=== PATIENT | male | born 1940 | race Caucasian/White ===

== ENCOUNTER → 2024-04-02 12:44 | Outpatient (REF) | payer OTHER, SELFPAY | LOC: RCS 12:44 | PROVIDERS: ATTENDING PHYSICIAN Internal Medicine Cardiovascular Disease; FAMILY PHYSICIAN Physician Assistant; REFERRING PHYSICIAN Internal Medicine Cardiovascular Disease | DX: I50.32 Chronic diastolic (congestive) heart failure (principal) | CPT/HCPCS: 93306 ==

== ENCOUNTER 2024-10-14 01:09 | Inpatient (IN) | payer OTHER, SELFPAY ==
[2024-10-13 19:29] VITALS: BMI 37.6
[2024-10-13 19:33] VITALS: BP 118/89
[2024-10-13 19:35] VITALS: BP 118/89
[2024-10-13 20:00] VITALS: BP 135/95
[2024-10-13 20:00] LABS: % Basophils 0.2 % (0-2); % Immature Granulocytes 0.2 % (0-0.5); % Lymphocytes 5.2 % (20.5-51.1); % Monocytes 10.6 % (1.7-9.3); % Neutrophils 81.8 % (42.2-75.2); Absolute Eosinophils 0.1 10^3/uL (0-0.7); Absolute Lymphocytes 0.2 10^3/uL (1.2-3.4); Absolute Monocytes 0.5 10^3/uL (0.1-0.6); Absolute Neutrophils 3.6 10^3/uL (1.4-6.5); Hematocrit 35.2 % (39.0-52.0); Hemoglobin 11.5 g/dL (13.0-18.0); Mean Corp Hgb Conc. 32.7 g/dL (33.0-37.0); Mean Corpuscular Hgb 33.1 pg (27.0-31.0); Mean Corpuscular Volume 101.4 fL (80.0-94.0); Mean Platelet Volume 11.4 fL (7.4-10.4); Nucleated Red Blood Cells % 0 % (-); Platelet Count 80 10^3/uL (130-400); Red Blood Cell Count 3.47 10^6/uL (4.70-6.10); Red Cell Dist. Width 13.1 % (11.5-14.5); White Blood Cell Count 4.4 10^3/uL (4.8-10.8)
[2024-10-13 20:05] LABS: ALT (SGPT) 42 U/L (0-50); AST (SGOT) 43 U/L (17-59); Albumin 4.5 g/dl (3.5-5.0); Alkaline Phosphatase 92 U/L (38-126); Blood Urea Nitrogen 25 mg/dl (9-20); Carbon Dioxide 34 mmol/L (22-30); Chloride 95 mmol/L (98-107); Estimated Creatinine Clearance 71 ml/min; Glucose 106 mg/dl (70-99); Potassium 4.6 mmol/L (3.5-5.1); Sodium 136 mmol/L (135-145); Total Bilirubin 1.6 mg/dl (0.2-1.3); Total Protein 7.4 g/dl (6.3-8.2); eGFR > 60.00
[2024-10-13 20:08] LABS: COVID-19 Antigen Negative (Negative)
--- NOTE | 2024-10-13 21:11 | ED.GENMED ---
History of Present Illness
<Ai Steel PA-C - Last Filed: 10/13/24 22:46>
General
Chief Complaint: Change in Mental Status
Source: patient, family and ambulance crew
Exam Limitations: clinical condition
Time Seen by Provider: 10/13/24 20:33
Nursing documentation reviewed up to this point in time: agreed with
History of Present Illness
History of Present Illness:
84-year-old male coming from home via EMS for change in mental status. Patient has history of A-fib on Eliquis, diastolic HF with preserved EF on lasix
cough today and increased confusion
whom i spoke with on the phone is primary hitorian
pt is usually very with it, plays bridge every day
he was doing some weird things while playing cards which tipped her off that he wasn't well
he coughed a lot
they gave him coricidin at 5 pm 1 pill but he couldn't get the other pill down
he seemed mroe SOB
tried calling PCP but then called 911 after he was coughing so much that he soiled himself rather than use the urinal like he usually does
here he is oriented but doesn't really have short term memory and doesn't remember being sick today or hwo he got here
he was hallucinating for the RN caring for him
he is full code per the
does not usually use o2
Past History
<Ai Steel PA-C - Last Filed: 10/13/24 22:46>
Past History
ED Past Medical History: Arrthythmia (Chronic A. 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
ED Past Surgical History: Appendectomy, Cardiac (ICD May 2019, A. fib ablation 2008. Cardiac catheterization March 2018) and Orthopedic (Left ankle fusion, lumbar spine fusions 2011, 2013)
Social History
Tobacco: Former smoker (Quit over 15 years ago)
Alcohol: Former
Drug: None
Personal:
Living: with family
Employment: Retired
Family History
Family History: Cancer (Father at 47, leukemia)
Review of Systems
<Ai Steel PA-C - Last Filed: 10/13/24 22:46>
Review of Systems
Allergies reviewed?: Yes
All Other Systems: Not applicable
Phy Exam
<Ai Steel PA-C - Last Filed: 10/13/24 22:46>
Physical Exam
Physical Exam:
GENERAL: Alert , tachypneic, confused
EYE: pupils equal and reactive
NECK: Supple
ENT: o/p clr, mildly dry
CARDIAC irregularly irregular, trace pitting edema
LUNGS: tachypneic, wheezing, diminished, Rhonchi R side
ABDOMEN: Soft, obese, without focal tenderness, no r/g, no cvat, normal bowel sounds
NEUROLOGICAL: Alert and oriented,x 2 ; short term memory poor, cn intact, no focal neuro deficits
SKIN: Warm and dry, skin intact.
MUSCULOSKELETAL: mild edema
PSYCH: Normal and appropriate interaction. confused
Course
<Ai Steel PA-C - Last Filed: 10/13/24 22:46>
Orders/Labs/Results
Orders:
Orders
10/13/24 19:37
Electrocardiogram (*1) Urgent
Reason for Study: Fatigue / Weakness
EKG- Treatment ONCE
10/13/24 19:43
COVID-19 Antigen Urgent
Source: Nasal Swab
Complete Blood Count/With Diff Urgent
Comprehensive Metabolic Panel Urgent
Influenza A+B Rapid Molecular Urgent
ADAMA Source: Nasal Swab
Specimen Description:
10/13/24 21:09
Ipratropium/Albuterol Sulfate [Duoneb] 3 ml INH R NOW ONE
10/13/24 21:10
Lactic Acid Urgent
NT-proBNP Urgent
Urinalysis Reflex To Culture Urgent
Date Specimen was Collected: 10/13/24
Time Specimen was Collected: 20:59
Urine Microscopic Reflex Cult Urgent
Urine Culture Urgent
ADAMA Source: U
Specimen Description:
Date Specimen was Collected: 10/13/24
Time Specimen was Collected: 20:59
CR Chest - 2 Views Urgent
Comment:
Reason For Exam: COPD, COUGH, HYPOXIC
10/13/24 21:13
Acetaminophen [Tylenol] 1,000 mg PO NOW STA
10/13/24 22:26
0.9% Sodium Chloride 500 ml [Nss] 500 ml IV BOLUS
10/13/24 22:35
Oseltamivir Phosphate [Tamiflu] 75 mg PO NOW STA
Abnormal Lab Results
10/13/24 10/13/24
19:43 21:10
WBC 4.4 L 10^3/uL
(4.8-10.8)
RBC 3.47 L 10^6/uL
(4.70-6.10)
Hgb 11.5 L g/dL
(13.0-18.0)
Hct 35.2 L %
(39.0-52.0)
MCV 101.4 H fL
(80.0-94.0)
MCH 33.1 H pg
(27.0-31.0)
MCHC 32.7 L g/dL
(33.0-37.0)
Plt Count 80 L 10^3/uL
(130-400)
MPV 11.4 H fL
(7.4-10.4)
Absolute Lymphs (auto) 0.2 L 10^3/uL
(1.2-3.4)
Neutrophils % 81.8 H %
(42.2-75.2)
Lymphocytes % 5.2 L %
(20.5-51.1)
Monocytes % 10.6 H %
(1.7-9.3)
Chloride 95 L mmol/L
(98-107)
Carbon Dioxide 34 H mmol/L
(22-30)
BUN 25 H mg/dl
(9-20)
Glucose 106 H mg/dl
(70-99)
Total Bilirubin 1.6 H mg/dl
(0.2-1.3)
Ur Occult Blood Reflex 2+ A
(Negative)
Leukocyte Esterase Rfl 3+ A
(Negative)
Urine RBC 3-6 A /HPF
(0-2)
Urine WBC (Reflex) 21-25 A /HPF
(0-5)
Urine Bacteria (Reflex) Few A
(Negative)
Urine Albumin (Reflex) 2+ A
(Neg - Trace)
10/13/24 19:43
10/13/24 19:43
Vital Signs
Initial and Last Documented VS:
Initial Vital Signs
BP
118/89
10/13/24 19:33
Last Documented Vital Signs
Temp Pulse Resp BP Pulse Ox
39.4 C H 117 25 131/60 94
10/13/24 20:59 10/13/24 22:45 10/13/24 22:45 10/13/24 22:27 10/13/24 22:45
<Joshua Bobo MD - Last Filed: 10/13/24 22:52>
Orders/Labs/Results
Orders:
Orders
10/13/24 19:37
Electrocardiogram (*1) Urgent
Reason for Study: Fatigue / Weakness
EKG- Treatment ONCE
10/13/24 19:43
COVID-19 Antigen Urgent
Source: Nasal Swab
Complete Blood Count/With Diff Urgent
Comprehensive Metabolic Panel Urgent
Influenza A+B Rapid Molecular Urgent
ADAMA Source: Nasal Swab
Specimen Description:
10/13/24 21:09
Ipratropium/Albuterol Sulfate [Duoneb] 3 ml INH R NOW ONE
10/13/24 21:10
Lactic Acid Urgent
NT-proBNP Urgent
Urinalysis Reflex To Culture Urgent
Date Specimen was Collected: 10/13/24
Time Specimen was Collected: 20:59
Urine Microscopic Reflex Cult Urgent
Urine Culture Urgent
ADAMA Source: U
Specimen Description:
Date Specimen was Collected: 10/13/24
Time Specimen was Collected: 20:59
CR Chest - 2 Views Urgent
Comment:
Reason For Exam: COPD, COUGH, HYPOXIC
10/13/24 21:13
Acetaminophen [Tylenol] 1,000 mg PO NOW STA
10/13/24 22:26
0.9% Sodium Chloride 500 ml [Nss] 500 ml IV BOLUS
10/13/24 22:35
Oseltamivir Phosphate [Tamiflu] 75 mg PO NOW STA
Abnormal Lab Results
10/13/24 10/13/24
19:43 21:10
WBC 4.4 L 10^3/uL
(4.8-10.8)
RBC 3.47 L 10^6/uL
(4.70-6.10)
Hgb 11.5 L g/dL
(13.0-18.0)
Hct 35.2 L %
(39.0-52.0)
MCV 101.4 H fL
(80.0-94.0)
MCH 33.1 H pg
(27.0-31.0)
MCHC 32.7 L g/dL
(33.0-37.0)
Plt Count 80 L 10^3/uL
(130-400)
MPV 11.4 H fL
(7.4-10.4)
Absolute Lymphs (auto) 0.2 L 10^3/uL
(1.2-3.4)
Neutrophils % 81.8 H %
(42.2-75.2)
Lymphocytes % 5.2 L %
(20.5-51.1)
Monocytes % 10.6 H %
(1.7-9.3)
Chloride 95 L mmol/L
(98-107)
Carbon Dioxide 34 H mmol/L
(22-30)
BUN 25 H mg/dl
(9-20)
Glucose 106 H mg/dl
(70-99)
Total Bilirubin 1.6 H mg/dl
(0.2-1.3)
Ur Occult Blood Reflex 2+ A
(Negative)
Leukocyte Esterase Rfl 3+ A
(Negative)
Urine RBC 3-6 A /HPF
(0-2)
Urine WBC (Reflex) 21-25 A /HPF
(0-5)
Urine Bacteria (Reflex) Few A
(Negative)
Urine Albumin (Reflex) 2+ A
(Neg - Trace)
10/13/24 19:43
10/13/24 19:43
Vital Signs
Initial and Last Documented VS:
Initial Vital Signs
BP
118/89
10/13/24 19:33
Last Documented Vital Signs
Temp Pulse Resp BP Pulse Ox
39.4 C H 117 25 131/60 94
10/13/24 20:59 10/13/24 22:45 10/13/24 22:45 10/13/24 22:27 10/13/24 22:45
<Ai Steel PA-C - Last Filed: 10/13/24 22:46>
MDM/Problems Addressed
Differential Diagnosis Includes:
pneumonia, flu, copd, sepsis, chf
MDM/Problems Addressed:
[facility] 84 y/o M with h/o afib on eliquis, diastolic HF on lasix
cough x 2 days, confused, febrile at home
afib with RVR 120s, febrile here 103, normotensive, wheezing, tachypneic, hypoxic 85% RA, on 4L now 95%
cxr looks pretty stable, not severely fluid overloaded; on exam he has more rhonchi R side
flu A +
tamiflu, nebs, tylenol given
seen by ed attending
stable on 4L
no fluids at this time
permissive elevated HR due to infection and fever;
stil febrile 101.9 but improved;
admit
d/w pt's
<Ai Steel PA-C - Last Filed: 10/13/24 22:46>
*Critical Care Note
Total Time (30-74mins, 75-104mins- exclusive of procedures): Not Applicable
ED Attending Note
<Ai Steel PA-C - Last Filed: 10/13/24 22:46>
-
Portions of this chart may have been created with voice recognition software.� Occasional wrong word or��sound alike� substitutions may have occurred due to the inherent limitations of voice recognition software.
<Joshua Bobo MD - Last Filed: 10/13/24 22:52>
ED Attending Note
Patient seen and examined by attending physician: Yes
ED Attending Note:
I have seen and evaluated the patient with a [id number] encounter. I have spoken to the advance practicer provider and involved in the medical history, the physical exam, medical decision making.
Evaluation and management service: agree unless noted differently below.
Results interpretation: agree unless noted differently below.
Focused HPI: 84-year-old male with history as noted presents for evaluation of shortness of breath and confusion, fever.
Physical exam: Awake alert but disoriented. Tachycardic with irregular rhythm. Tachypneic respiratory rate mid 20s. Febrile. Hypoxic requiring 4 L nasal cannula. Slight edema in the legs bilaterally. No JVD. Mucous membranes appear moist.
Medical Decision Makin-year-old male presents with flulike illness and shortness of breath, confusion. Vitals and exam as above. He is positive for influenza which is likely etiology of his symptoms. EKG shows A-fib with RVR is a known
history. Chest x-ray reviewed by me no clear pneumonia. Labs reviewed, CBC shows stable mild pancytopenia, CMP with clinically significant abnormalities. proBNP mildly elevated. Suspect much of tachycardia is from fever�will treat with Tylenol.
Treat with Tamiflu. Suspect likely hypoxia is related to COPD exacerbation triggered by influenza�will treat with steroids and nebs. Hold on fluids as he does appear at least euvolemic if not volume overloaded and slightly elevated proBNP with
known history of heart failure. Admit for continued management.
Discharge Plan
Departure
Patient Disposition: Admit
Date of Disposition: 10/13/24
Time of Disposition: 22:35
Admit to: IMU
Presentation/result/management discussed w/ accepting MD/DO: Hospitalist
Condition: Fair
Covid-19: Not Applicable
Discharge Problem:
Influenza A, Hypoxia, COPD (chronic obstructive pulmonary disease), CHF (congestive heart failure)
Prescriptions:
No Action
Eliquis 5 MG tablet
5 mg PO BID
pravastatin 40 MG tablet
80 mg PO HS
Prevagen
1 tab PO DAILY
Metamucil 3.4 gram/5.4 gram Powder
1 tsp PO DAILY
Dulcolax (bisacodyl)
10 mg [place] DAILY PRN (Reason: constipation)
Milk of Magnesia
30 ml PO DAILYPRN PRN (Reason: constipation)
allopurinol 100 mg tablet
100 mg PO DAILY
Patient Comments:
06/25/22: per patient- dose uncertain; confirmed via pharmacy fill records as 100 mg daily
tamsulosin 0.4 mg capsule
0.4 mg PO HS
finasteride 5 mg tablet
5 mg PO DAILY
furosemide 80 mg Tablet
80 mg PO DAILY 30 Days Qty: 30 0RF
Atrovent HFA 17 mcg/actuation HFA aerosol inhaler
2 puff inhalation QID PRN (Reason: shortness of breath or wheezing) Qty: 12.9 0RF
carvedilol [Coreg] 25 mg Tablet
25 mg PO BID
Referrals:
UNKNOWN - PT NOT,INTERVIEWE [Family Provider] -
Interventions
Interventions:
*Risk Screen - Suicide Last Done: 10/13/24 19:36
*General Assessment Last Done: 10/13/24 19:35
*Neglect/Abuse Screening Last Done: 10/13/24 19:36
*ED COVID-19 Vaccine History Last Done: 10/13/24 19:35
ED- Pulmonary Assessment Last Done: 10/13/24 19:40
ED- Neurological Assessment Last Done: 10/13/24 19:40
ED- Cardiac Assessment Last Done: 10/13/24 19:40
Discharge Date and Time
Print Language: KITTITIAN
[2024-10-13] MEDS: DUONEB 3 ML INH (21:20)
[2024-10-13] MEDS: TYLENOL 1000 MG PO (21:20)
[2024-10-13 21:21] LABS: Urine Albumin 2+ (Neg - Trace); Urine Bilirubin Negative (Negative); Urine Character Clear (Clear); Urine Color Yellow; Urine Glucose Negative (Negative); Urine Ketone Negative (Negative); Urine Leukocyte 3+ (Negative); Urine Nitrite Negative (Negative); Urine Occult Blood 2+ (Negative); Urine Urobilinogen Negative (Neg - 1+)
[2024-10-13 21:26] LABS: Lactic Acid 0.8 mmol/L (0.7-2.0)
[2024-10-13 21:36] LABS: NT-proBNP 1690 pg/ml
[2024-10-13 22:12] VITALS: BP 98/63
[2024-10-13 22:18] LABS: Urine Bacteria Few (Negative); Urine Squamous Cell 16-20 /LPF (Few); Urine White Cell 21-25 /HPF (0-5)
[2024-10-13 22:27] VITALS: BP 131/60
[2024-10-13] MEDS: TAMIFLU 75 MG PO (22:40)
[2024-10-13] MEDS: DECADRON 10 MG IV (22:57)
[2024-10-13 23:00] VITALS: BP 121/78
[2024-10-14] VITALS (11 sets, daily range): BP systolic 108–150; BP diastolic 69–100; PULSE 85–93; O2SAT 90–91; BMI 37.6; BMI 36.7
--- NOTE | 2024-10-14 00:33 | HPS.HSE ---
Family Physician
-
Family Physician: INTERVIEWE UNKNOWN - PT NOT
Chief Complaint
-
Change in mental status
History of Present Illness
Patient is an 84y M with PMH significant for A-Fib, HFpEF and COPD who presents to ED for evaluation of mental status change. History obtained primarily from ED staff / record who spoke with . states that patient seemed his usual self
until today when he seemed to be significantly confused, disoriented and started with a hacking, non-productive cough. His symptoms persisted / progressed throughout the day and they presented to the ED for further evaluation. In the ED, patient
is sleeping comfortably. He wakes easily when stimulated. He is confused upon waking. Does not recall that he is in the hospital. Can provide no recent history / symptoms.
Medical History
Past Medical History
Past Medical History: Reports Other
Additional Past Medical History:
Permanent Atrial Fibrillation
Essential Hypertension
Hyperlipidemia
COPD
Obstructive Sleep Apnea
Degenerative Disc Disease
Gout
Past Surgical History: Reports Other
Additional Past Surgical History:
Septoplasty
Spinal Fusion
Ankle Fusion
Ruptured Appendix
ICD
Social History
Tobacco: Former Smoker
Alcohol: Former
Personal:
Living: With Family
Family History
Family History: Cancer (Father - Leukemia)
Allergies / Home Medications
Allergies reflects when Allergies were last updated in [facility].
Home Medications with original date entered in [facility]
Allergy/Medication List:
Allergies
Allergy/AdvReac Type Severity Reaction Status Date / Time
codeine Allergy hallucinati Verified 06/23/22 14:53
ons
hydrocodone [Hydrocodone] Allergy HALLUCINATI Verified 06/23/22 14:53
ONS
Home Medications
apixaban 5 mg tablet (Eliquis) 5 mg PO BID Blood clot prevention/tx 02/07/21
pravastatin 40 mg tablet 80 mg PO HS High cholesterol 07/07/21
allopurinol 100 mg tablet 100 mg PO DAILY Gout 06/25/22
finasteride 5 mg tablet 5 mg PO DAILY Urinary issue 06/25/22
tamsulosin 0.4 mg capsule 0.4 mg PO HS Urinary issue 06/25/22
carvedilol 25 mg tablet (Coreg) 25 mg PO BID 07/04/22
cholecalciferol (vitamin D3) 50 mcg (2,000 unit) tablet 50 mcg PO DAILY 10/14/24
cyanocobalamin (vitamin B-12) 1,000 mcg tablet 1,000 mcg PO DAILY 10/14/24
furosemide 40 mg tablet 40 mg PO DAILY 10/14/24
spironolactone 25 mg tablet 25 mg PO DAILY 10/14/24
Review of Systems
-
History Source: Patient (Limited ROS due to current mental status change.)
Respiratory: Reports Cough
Psych: Reports Other (Confusion)
Physical Exam
Vital Signs
Vital Signs
Temp Pulse Resp BP Pulse Ox
103 F H 93 20 139/87 93
10/13/24 20:59 10/14/24 00:30 10/14/24 00:30 10/14/24 00:00 10/14/24 00:30
Physical Exam
General: Other (84y M sleeping comfortably. Sweaty / diaphoretic.)
HEENT: Moist mucous membranes and Other (Thick neck.)
Respiratory: Other (Coarse breath sounds on the R > L. )
Cardiac: S1/S2, Irregular Rhythm and Tachycardia; No Murmur
GI: Soft, Non Tender, Non Distended and Normal Bowel Sounds
Musculoskeletal: No Clubbing, No Cyanosis and No Edema
Neuro: Awake, Alert and Nonfocal/grossly intact; No Oriented
Laboratory Results
-
10/13/24 19:43
10/13/24 19:43
Laboratory Results
Lactic Acid 0.8 mmol/L (0.7-2.0) 10/13/24 21:10
Total Bilirubin 1.6 mg/dl (0.2-1.3) H 10/13/24 19:43
AST 43 U/L (17-59) 10/13/24 19:43
ALT 42 U/L (0-50) 10/13/24 19:43
Alkaline Phosphatase 92 U/L (38-126) 10/13/24 19:43
Impression/Plan
-
A/P: Patient is an 84y M with PMH significant for A-Fib, CHF and COPD who presents to ED for evaluation of mental status change and cough
Influenza A
Sepsis secondary to the above
Acute TME secondary to the above.
- Admit for further evaluation and treatment.
- Patient presents with fever, tachycardia, tachypnea and is positive for Flu A here in the ED.
- CXR with patchy opacities - R > L.
- Acute mental status change / confusion likely secondary to fever / sepsis.
- Continue Tamiflu BID.
- Patient cannot recall whether or not he received his seasonal flu vaccine.
- Supportive care with supplemental O2, IVFs, etc.
- Follow fever curve. Follow for clinical improvement.
- Monitor for return to baseline mental status.
Paroxysmal Atrial Fibrillation
- Currently tachycardic - likely due to underlying illness, fever, etc.
- Monitor on telemetry.
- Antipyretics / follow fever curve.
- Continue usual carvedilol for rate control.
- Continue Eliquis for stroke risk reduction.
Chronic HFmrEF
- Stable. Patient does not appear grossly volume overloaded at present.
- Likely relatively hypovolemic due to acute illness / sepsis.
- Gentle IVFs overnight.
- Hold Lasix for now.
- Follow I/Os, daily weights, etc.
COPD
History of Hypercapnic Resp Failure
History of ROCIO
- Patient denies use of PAP, etc at home.
- Developed hypercapnia / encephalopathy during prior hospitalization.
- Caution with O2 supplementation.
- Albuterol MDI PRN.
BPH
- Stable. Continue Flomax / Proscar.
- Bladder scan protocol.
DVT Prophylaxis: On Eliquis
Code Status: Full
[2024-10-14] MEDS: NSS 1000 IV ×2 (01:54→14:24)
[2024-10-14 06:31] LABS: Hematocrit 33.8 % (39.0-52.0); Hemoglobin 11.2 g/dL (13.0-18.0); Mean Corp Hgb Conc. 33.1 g/dL (33.0-37.0); Mean Corpuscular Hgb 33.6 pg (27.0-31.0); Mean Corpuscular Volume 101.5 fL (80.0-94.0); Mean Platelet Volume 11.3 fL (7.4-10.4); Platelet Count 74 10^3/uL (130-400); Red Blood Cell Count 3.33 10^6/uL (4.70-6.10); Red Cell Dist. Width 13.2 % (11.5-14.5); White Blood Cell Count 3.6 10^3/uL (4.8-10.8)
[2024-10-14 06:47] LABS: Blood Urea Nitrogen 24 mg/dl (9-20); Calcium 8.7 mg/dl (8.4-10.2); Carbon Dioxide 30 mmol/L (22-30); Chloride 96 mmol/L (98-107); Estimated Creatinine Clearance 78 ml/min; Glucose 150 mg/dl (70-99); Potassium 4.6 mmol/L (3.5-5.1); Sodium 138 mmol/L (135-145); eGFR > 60.00
[2024-10-14] MEDS: COREG 25 MG PO ×2 (08:21→19:45)
[2024-10-14] MEDS: ZYLOPRIM 100 MG PO (08:22)
[2024-10-14] MEDS: VITAMIN D3 (cholecalciferol) 50 MCG PO (08:22)
[2024-10-14] MEDS: ALDACTONE 25 MG PO (08:22)
[2024-10-14] MEDS: TAMIFLU 75 MG PO ×2 (08:22→19:46)
[2024-10-14] MEDS: PROSCAR 5 MG PO (08:22)
[2024-10-14] MEDS: ELIQUIS 5 MG PO ×2 (08:22→19:46)
[2024-10-14] MEDS: VITAMIN B-12 1000 MCG PO (08:22)
[2024-10-14] MEDS: TYLENOL 650 MG PO (08:31)
--- NOTE | 2024-10-14 09:45 | W.PN.HOSP.TC ---
Addendum entered and electronically signed by Yan Mann MD 10/14/24 22:57:
Attending Addendum-
I saw and evaluated the patient. I reviewed the resident�s note and agree with findings and plan as documented in the resident�s note. Sub: Complains of SOB and cough. Pleasant. Febrile last PM. Denies chills palps or urinary sxs Full 12 point ROS
reviewed and negative except as documented Exam: Vitals reviewed in chart GEN- mild resp distress heart tachycardic lungs scattered rhonchi abd soft LE no edema
Plan:
#Sepsis Secondary to Influenza A
- CXR with patchy opacities - R > L.
- TME- secondary to fever / sepsis- resolved
- Continue Tamiflu BID
- Supportive care
- Follow fever curve. Follow for clinical improvement.
- hold on abx for now
- check procal
# Acute Hypoxemic Respiratory Failure
- wean o2 for sats 88-92%
# Pancytopenia
- viral induced
- check CBC in am
# Paroxysmal Atrial Fibrillation
- Currently tachycardic - likely due to underlying illness, fever, etc.
- Monitor on telemetry.
- Antipyretics / follow fever curve.
- Continue usual carvedilol
- Continue Eliquis
# Chronic HFpEF
- Echo 04/24- EF 50-55%
- Stable. Patient does not appear grossly volume overloaded at present.
- Gentle IVFs overnight.
- Hold Lasix for now.
- Follow I/Os, daily weights, etc.
#COPD
History of ROCIO
- Patient denies use of CPAP
- Caution with O2 supplementation.
- Albuterol MDI PRN.
#BPH
- Stable. Continue Flomax / Proscar.
- Bladder scan protocol.
#HLD- cpont pravastatin
#GOUT- cont allopurinol
#H/O AUD
DVT Prophylaxis: On Eliquis
Code Status: Full
Dispo DC in 24 to 48 hours
Time spent coordinating care, review of plan of care with resident, personally reviewed records in EMR, med rec, consults, notes, labs, radiology, d/w nursing � 55 mins
Original Note:
Today's Communication/Plan
-
Continue respiratory support with supplemental oxygen- wean as tolerated
Follow temps
Monitor CBC
Cont to hold Lasix
Possible discharge tomorrow
Assessment / Plan
Assessment / Plan
Patient is an 84y M with PMH significant for A-Fib, HFmrEF and COPD who presents to ED for evaluation of mental status change and cough and SOB
Apparently patient had some degree of altered mental status on admission-at this time when I visited patient in the morning he is awake, alert, oriented and not confused. Nursing staff mentions he was a bit agitated and aggressive when she was in
his room.
Sepsis POA in the setting of viral URI
- Tested positive for Influenza A
- COVID-negative
- CXR: without evidence to suggest pneumonia or congestive heart failure
- Wheezing on auscultation but no crackles
- Acute mental status change / confusion-now resolved
- Continue Tamiflu BID.
- Flu vaccine status unclear
- Continue supportive care with supplemental O2 (currently on 4 L)
- Currently receiving normal saline @ 80cc/hr
- No more fever since admission-follow temps
- Follow for clinical improvement-patient can potentially be discharged later today or tomorrow
Paroxysmal Atrial Fibrillation
- Currently runs between 80-110
- Continue to monitor on telemetry
- Continue home carvedilol for rate control-no need for additional rate control at this time
- Continue Eliquis
Positive UA
-Likely contaminated
-U/C pending
Pancytopenia
-Macrocytic anemia likely in the setting of chronic alcoholic use
-Thrombocytopenia could be d/t sepsis vs chronic alcoholic use
-Will follow CBC-anticipate improvement in white cell count with management of sepsis
Chronic HFpEF
- Stable. Patient does not appear grossly volume overloaded at present.
- Continue to hold Lasix
- Follow I/Os, daily weights, etc.
COPD/History of Hypercapnic Resp Failure d/t ROCIO
- Bilateral wheezes heard on auscultation
- Last time patient used CPAP was more than 15 years ago
- Continue nasal O2
- Albuterol PRN.
BPH
- Does not report any trouble with urination
- Continue Flomax and finasteride.
- Bladder scan protocol
DVT Prophylaxis: On Eliquis
Code Status: Full
Anticipated Discharge: Within 24 hours
Subjective/Interval History
-
Date of Service: October 14, 2024
Patient complains of frequent coughing which is productive. Saturating well on 4 L oxygen. Wheezing.
Objective Data
-
Labs:
Laboratory Results
10/14/24
05:47
WBC 3.6 L
Hgb 11.2 L
Hct 33.8 L
Plt Count 74 L
Sodium 138
Potassium 4.6
Chloride 96 L
Carbon Dioxide 30
BUN 24 H
Creatinine 0.9
Glucose 150 H
Calcium 8.7
Vital Signs:
Vital Signs
Temp Pulse Resp BP Pulse Ox
98.5 F 110 18 133/96 94
10/14/24 07:36 10/14/24 08:22 10/14/24 07:36 10/14/24 08:22 10/14/24 07:36
I&O
10/13/24 10/14/24 10/15/24
06:59 06:59 06:59
Intake Total 400 / 400 560 / 560
Balance 400 / 400 560 / 560
Review of Systems
-
History Source: Patient
All other systems: Reviewed and negative
Respiratory: Reports Cough and Trouble Breathing
Cardiac: Reports No Symptoms
Abdomen/GI: Reports No Symptoms
Genitourinary: Reports No Symptoms
Skin: Reports No Symptoms
Neuro: Reports No Symptoms
Physical Exam
-
General: Well Developed, Well Nourished, Comfortable, Conversant and Other (saturating well on 4lit)
HEENT: Normocephalic and Atraumatic
Respiratory: Wheezes (Bilateral Wheezes ); Negative Crackles
Cardiac: S1/S2 and Irregular Rhythm (Afib, rate running between 80-110)
GI: Soft, Nontender, Nondistended and Normal Bowel Sounds
Genito-urinary: No Costovertebral Tender and Clear Urine
Musculoskeletal: No Clubbing, No Cyanosis, Edema, Right Lower Extrem and Edema, Left Lower Extrem
Skin: Warm and Dry
Neuro: Awake, Alert, Oriented and AO x 3
Psych: Calm and Intact Judgement/Insight
--- NOTE | 2024-10-14 13:54 | CM ---
Patient seen at bedside.
IA completed
Lives in a 2 story home with , 1 step to enter, 1st floor set up
PLOF: Independent, uses walker
DME: Walker, shower chair, cane
Denies HH/Rehab
Denies insecurities
PT/OT rec SNF
Discussed options for SNF-Refuses SNF currently
Discussed VN - agreeable with VN
PCP: Jimy Simms [facility] [place]
PLAN: SNF recommended, currently refuses SNF - agreeable with VN
[2024-10-14] MEDS: TYLENOL PO (17:59)
[2024-10-14] MEDS: FLOMAX 0.4 MG PO (22:17)
[2024-10-14] MEDS: PRAVACHOL 80 MG PO (22:17)
[2024-10-15] VITALS (7 sets, daily range): BP systolic 120–160; BP diastolic 59–94; BMI 38.4
[2024-10-15] MEDS: NSS 1000 IV (01:11)
--- NOTE | 2024-10-15 01:47 | W.PN.UPDATE ---
Update Note
Progress Note Update
Patient is confused, agitated, and staff not able to redirect. One time Zyprexa was given. Patient continue to swinging, threw a cup of water at the staff, trying to remove the IV line. Code ace called, soft restraint applied.
This morning morning, patient is agitated again trying to get out of bed while the restraints on. Risperidone 0.5 mg ordered.
[2024-10-15] MEDS: ZYPREXA 5 MG IM (02:01)
[2024-10-15] MEDS: TYLENOL 650 MG PO ×2 (03:12→09:49)
--- NOTE | 2024-10-15 03:17 | PTCARENOTE ---
Pt. started out shift slightly confused and forgetful but pleasant and able to be redirected, but then became very agitated later in the shift, attempting to get out of chair without assist, setting off bed alarm constantly. When attempting to
redirect, pt. became angry with staff, swinging, threw a cup of water at staff, ripping telemonitor & IV off. Disoriented to time and place, growing more agitated with any interaction. Hospitalist LAMINATING MACHINE OPERATOR Daniel notified (on floor at the time). Order
for Zyprexa IM obtained and given. Pt. still continuing to act out, ripped O2 off (pulse ox 87% on RA), lunged at me when I entered room to check on him. Code purple called, pt. assisted to bed by staffDaniel at bedside, order for soft wrist
restraints & 4 side rails obtained and applied. Pt. since calmer but still calls out, confused, attempting to remove O2 and tele monitor even with restraints on. Pulse ox on 3L improved to 93%, temp 100.7 with HR 100's-130's (A-fib). Tylenol given
(which pt. took willingly).
[2024-10-15] MEDS: COREG 25 MG PO (04:53)
--- NOTE | 2024-10-15 05:02 | PTCARENOTE ---
Pt.'s HR 110's-150's (A-fib), temp down to 98.3 post Tylenol. Pt. is still confused and agitated. Daniel BEAR notified, instructed to give 0800 dose Coreg now. Dose given.
[2024-10-15] MEDS: RISPERDAL M-TAB (ORALLY DISINTEGRATING) 0.5 MG PO (06:19)
--- NOTE | 2024-10-15 08:01 | W.PN.HOSP.TC ---
Addendum entered and electronically signed by Yan Mann MD 10/15/24 21:10:
Attending Addendum-
I saw and evaluated the patient. I reviewed the resident�s note and agree with findings and plan as documented in the resident�s note. Sub: genie bello called overnight due to severe agitation. Given risperdal with positive effect. Patient sleeping
soundly. When woken up is agitated cursing hiting and falls back asleep. ROS unable to be obtained due to MS Exam: Vitals reviewed in chart GEN- NAD heart RRR lungs scattered rhonchi abd soft LE no edema
Plan:
#Sepsis Secondary to Influenza A
- CXR with patchy opacities - R > L.
- TME- secondary to fever / sepsis- resolved
- Continue Tamiflu BID
- Supportive care
- Follow fever curve.
- hold on abx for now- procal WNL
# TME
- from influenza
- stat ct head ordered- neg
- likely underlying cognitive deficit, unknown baseline mentation
- Risperdal prn monitor Qtc
- attempted to call POA multiple times without response
# Acute Hypoxemic Respiratory Failure
- wean o2 for sats 88-92%
# Pancytopenia
- viral induced-resolving
- check CBC in am
# Paroxysmal Atrial Fibrillation
- Monitor on telemetry.
- Antipyretics / follow fever curve.
- Continue carvedilol
- Continue Eliquis
# Chronic HFpEF
- Echo 04/24- EF 50-55%
- restart Lasix
- Follow I/Os, daily weights, etc.
#COPD
- History of ROCIO
- Patient denies use of CPAP
- Caution with O2 supplementation.
- Albuterol MDI PRN.
#BPH
- Stable. Continue Flomax / Proscar.
- Bladder scan protocol.
#HLD- cont pravastatin
#GOUT- cont allopurinol
#H/O AUD
DVT Prophylaxis: On Eliquis
Code Status: Full
Time spent coordinating care, review of plan of care with resident, personally reviewed records in EMR, med rec, consults, notes, labs, radiology, d/w nursing � 56 mins
Original Note:
Today's Communication/Plan
-
CT head without contrast
EKG for QTc monitoring-give Risperdal PRN if no prolongation
Discontinue IV fluids
Will contact POA regarding how to approach next treatment steps
Assessment / Plan
Assessment / Plan
Patient is an 84y M with PMH significant for A-Fib, HFpEF and COPD who presents to ED for evaluation of mental status change and cough and SOB
Sepsis POA in the setting of viral URI
- Tested positive for Influenza A
- COVID-negative
- CXR: without evidence to suggest pneumonia or congestive heart failure
- Wheezing on auscultation but no crackles
- Acute mental status change / confusion-Became agitated last night and wanted to pull IV line. Code purple called. Was given Zyprexa in p.m. and Risperidone 0.5 this a.m which helped calming patient. Hand restraints placed. Refused morning
labs and medication. Debbie mentioned he was hallucinating seeing dogs on the ceiling this morning.
- Given altered mental status, will order head CT.
- Risperdal 0.5 as needed after EKG for QTc monitoring
- Continue Tamiflu BID.
- Flu vaccine status unclear
- Continue supportive care with supplemental O2 (currently on 2L)-wean as tolerated
- D/C normal saline
- An episode of fever last night-follow temps and Tylenol as needed
Paroxysmal Atrial Fibrillation
- Currently runs between 110-150
- Continue to monitor on telemetry
- Continue home carvedilol for rate control-no need for additional rate control at this time
- Continue Eliquis
Positive UA
-Likely contaminated
-U/C-contaminated
Pancytopenia
-Macrocytic anemia likely in the setting of chronic alcoholic use
-Thrombocytopenia could be d/t sepsis vs chronic alcoholic use
-Refused labs this morning-anticipate improvement in white cell count with management of sepsis
Chronic HFpEF
- Stable. Patient does not appear grossly volume overloaded at present.
- Continue to hold Lasix for now
- Follow I/Os, daily weights
COPD/History of Hypercapnic Resp Failure d/t ROCIO
- Bilateral wheezes heard on auscultation
- Last time patient used CPAP was more than 15 years ago
- Continue nasal O2
- Albuterol PRN
BPH
- Continue Flomax and finasteride.
- Bladder scan protocol
DVT Prophylaxis: On Eliquis
Code Status: Full
Anticipated Discharge: 24 - 48 hours
Subjective/Interval History
-
Date of Service: October 15, 2024
Patient is very confused. Does not remember who I am. Questions if I was the hack driver who brought him to the ED.
Is not cooperative and does not give appropriate answers to questions.
Objective Data
-
Labs:
Laboratory Results
10/15/24
06:00
WBC Pending
Hgb Pending
Hct Pending
Plt Count Pending
Sodium Pending
Potassium Pending
Chloride Pending
Carbon Dioxide Pending
BUN Pending
Creatinine Pending
Glucose Pending
Calcium Pending
Vital Signs:
Vital Signs
Temp Pulse Resp BP Pulse Ox
98.8 F 94 22 126/59 94
10/15/24 07:25 10/15/24 07:25 10/15/24 07:25 10/15/24 07:25 10/15/24 07:25
I&O
10/14/24 10/15/24 10/16/24
06:59 06:59 06:59
Intake Total 400 / 400 2840 / 2840
Output Total 875 / 875
Balance 400 / 400 1964 / 1964
Review of Systems
-
Unable to obtain full review of systems at this time due to: Other (Patient confused)
Physical Exam
-
General: Other (saturating well on 2lit)
HEENT: Normocephalic and Atraumatic
Respiratory: Wheezes (Bilateral Wheezes ); Negative Crackles
Cardiac: S1/S2 and Irregular Rhythm (Afib, rate running between 110-150)
GI: Soft, Normal Bowel Sounds and Distended
Genito-urinary: No Costovertebral Tender
Musculoskeletal: No Clubbing, No Cyanosis, Edema, Right Lower Extrem and Edema, Left Lower Extrem
Skin: Warm, Dry and Other (Bilateral hand restraints)
Neuro: Awake and Oriented (Disoriented to person)
Psych: Confused and Agitated
[2024-10-15] MEDS: TAMIFLU 75 MG PO (09:48)
[2024-10-15] MEDS: VITAMIN D3 (cholecalciferol) 50 MCG PO (09:48)
[2024-10-15] MEDS: PROSCAR 5 MG PO (09:48)
[2024-10-15] MEDS: ALDACTONE 25 MG PO (09:48)
[2024-10-15] MEDS: ZYLOPRIM 100 MG PO (09:49)
[2024-10-15] MEDS: ELIQUIS 5 MG PO (09:49)
[2024-10-15] MEDS: VITAMIN B-12 1000 MCG PO (09:50)
--- NOTE | 2024-10-15 10:31 | VNURNOTE ---
[facility] called patient's room, was informed by staff that he was very confused, could not talk. [facility] liaison called patient's spouse Jyoti. Explained [facility] services: nurse/therapy, visits, schedule and homebound status. Explained that visits at home
are generally 2-3 x per week to assess and teach medical management. Informed that [facility] would contact them for start of care in 1-2 days after discharge from . Per spouse, they have had VN in the past with [facility].
Per spouse Jyoti, she is concerned about taking patient home, stated he is not confused at baseline. Prior to admit, he was checking and recording daily weights and recording fluid intake. He used a rolling walker at home, no home 02. She is
unsure if he will be strong enough to go home at this point. Spouse seemed interested in SNF options. She requested a call from the nurse with an update on his status. POLO Sandoval updated. No [facility] referral at this point.
--- NOTE | 2024-10-15 10:57 | CM ---
Left message with Jyoti to discuss options of SNF
Patient agitated last night - restraints, 1:1
PT rec SNF-he had previously refused
will need to obtain ins auth
PLAN: SNF, CM await to speak with regarding options to enter in [facility]
[2024-10-15 15:15] LABS: % Basophils 0.2 % (0-2); % Eosinophils 0.2 % (0-6); % Immature Granulocytes 0.3 % (0-0.5); % Lymphocytes 8.8 % (20.5-51.1); % Monocytes 12.2 % (1.7-9.3); % Neutrophils 78.3 % (42.2-75.2); Absolute Lymphocytes 0.6 10^3/uL (1.2-3.4); Absolute Monocytes 0.8 10^3/uL (0.1-0.6); Hematocrit 36.2 % (39.0-52.0); Hemoglobin 11.1 g/dL (13.0-18.0); Mean Corp Hgb Conc. 30.7 g/dL (33.0-37.0); Mean Corpuscular Hgb 32.9 pg (27.0-31.0); Mean Corpuscular Volume 107.4 fL (80.0-94.0); Mean Platelet Volume 11.1 fL (7.4-10.4); Nucleated Red Blood Cells % 0 % (-); Platelet Count 86 10^3/uL (130-400); Red Blood Cell Count 3.37 10^6/uL (4.70-6.10); Red Cell Dist. Width 13.5 % (11.5-14.5); White Blood Cell Count 6.4 10^3/uL (4.8-10.8)
[2024-10-15 15:28] LABS: Procalcitonin 0.09 ng/ml (0.0-0.25)
[2024-10-15 15:36] LABS: Blood Urea Nitrogen 35 mg/dl (9-20); Calcium 8.5 mg/dl (8.4-10.2); Carbon Dioxide 28 mmol/L (22-30); Chloride 96 mmol/L (98-107); Estimated Creatinine Clearance 72 ml/min; Glucose 85 mg/dl (70-99); Sodium 135 mmol/L (135-145); eGFR > 60.00
[2024-10-15] MEDS: ELIQUIS PO (22:22)
[2024-10-15] MEDS: FLOMAX PO (22:23)
[2024-10-15] MEDS: COREG PO (22:23)
[2024-10-15] MEDS: TAMIFLU PO (22:23)
[2024-10-15] MEDS: PRAVACHOL PO (22:23)
[2024-10-15 22:50] LABS: Glucose - Point of Care 79 mg/dl (70-99)
--- NOTE | 2024-10-15 22:55 | W.PN.UPDATE ---
Update Note
Progress Note Update
Called to the patient room as the patient is lethargic.
Patient is febrile temp 100.9, bp 120/ 76, tachycardia hr is 118, RR 20, SPO2 98% on 4L of O2, bs 79.
Chest x-ray, abg, cbc, bmp, mag, blood cultures
Abg result (ph 7.22, pco2 79, po2 123, hco3 32.3)
Transfer to IMU and Bipap ordered.
Called the home phone& cell phone listed multiple times with no answer, voice mail left to call back. No other contact numbers listed on the chart.
Patient noted with pupils pinpoint, not following commands. Patient is not receiving opioid and did not received any meds that could affect.
Stroke alert called
Head CT ordered (result is neg) No further recommendations received from neurology.
Repeated abg after bipap use (ph 7.23, pco2 76, po2 109, hco3 31.8)
Patient with no improvement, not responding to verbal stimuli, not following commands, and hardly arousable with sternal rub.
Discussed with the manager switch and will transfer the patient to ICU.
-Called the again, still no answer
[2024-10-15] MEDS: OFIRMEV 100 IV (23:06)
[2024-10-15 23:16] LABS: B.E. 2.8 mmol/L; HCO3 32.3 mmol/L (21-28); O2 Saturation % 99.7 % (94-98); PO2 123 mmHg (83-108); pH 7.22 (7.35-7.45)
[2024-10-15 23:18] LABS: PCO2 79 mmHg (35-48)
[2024-10-15 23:46] LABS: Hematocrit 35.7 % (39.0-52.0); Hemoglobin 11.1 g/dL (13.0-18.0); Mean Corp Hgb Conc. 31.1 g/dL (33.0-37.0); Mean Corpuscular Hgb 33.2 pg (27.0-31.0); Mean Corpuscular Volume 106.9 fL (80.0-94.0); Platelet Count 89 10^3/uL (130-400); Red Blood Cell Count 3.34 10^6/uL (4.70-6.10); Red Cell Dist. Width 13.6 % (11.5-14.5); White Blood Cell Count 5.6 10^3/uL (4.8-10.8)
[2024-10-15 23:51] LABS: Blood Urea Nitrogen 35 mg/dl (9-20); Calcium 8.6 mg/dl (8.4-10.2); Carbon Dioxide 31 mmol/L (22-30); Chloride 98 mmol/L (98-107); Estimated Creatinine Clearance 72 ml/min; Glucose 79 mg/dl (70-99); Magnesium 2.3 mg/dl (1.6-2.3); Potassium 5.2 mmol/L (3.5-5.1); Sodium 134 mmol/L (135-145); eGFR > 60.00
[2024-10-16] VITALS (42 sets, daily range): BP systolic 88–174; BP diastolic 52–156; PULSE 2–111; BMI 37.8
[2024-10-16 00:23] LABS: Procalcitonin 0.09 ng/ml (0.0-0.25)
[2024-10-16 00:26] LABS: Glucose - Point of Care 86 mg/dl (70-99)
--- NOTE | 2024-10-16 00:43 | PTCARENOTE ---
10/15/2024 - I went in to check on PT and give medications at approx. 22:00. PT was OOB sitting in the chair HOC at approx. 35%. I touch PT's arm to wake him for meds and there was a slight response - open eyes and then closed and made a mumbling
sound. I performed a sternal rub on the PT with minimal response. I took VS on the PT immediately - SpO2 98% on 4 L , BP 120/76, Resp. 20, HR 118's - 130s, 100.9 temp aux. - and contacted the attending Daniel Russell and requested her to come
and look at the PT. See stat orders as documented in MAR and stat labs. Critical lab result PCO2 79. PT transferred in IMU to room 3354. Brass Molder Helper notified.
--- NOTE | 2024-10-16 00:45 | PTCARENOTE ---
Patient arrived into room 3354 with RT and Joe Gracia RN. Pt placed immediately on Bipap. Sp02 95-98%. Pt unresponsive. Minimally responsive to sternal rub. Afib 100-150s on tele. Pt was turned and cleaned for incont urine. 0 mL bladder scan. Pupils
are pin point and not reactive. Arms became rigid. DANIA Sanchez at bedside. Stroke alert and rapid called. Pt taken down to CT scan with ICU RNs. Pt was becoming slightly more responsive when leaving the floor to CT scan and was able to say his name
and lifted his arms. NIHSS 27.
[2024-10-16] MEDS: ELIQUIS PO ×3 (00:57→21:38)
[2024-10-16] MEDS: TAMIFLU PO ×3 (00:57→21:39)
[2024-10-16] MEDS: COREG PO ×3 (00:57→21:38)
[2024-10-16] MEDS: FLOMAX PO ×2 (00:58→21:39)
[2024-10-16] MEDS: PRAVACHOL PO ×2 (00:58→21:39)
[2024-10-16 01:33] LABS: B.E. 2.6 mmol/L; HCO3 31.8 mmol/L (21-28); O2 Saturation % 98.9 % (94-98); PO2 109 mmHg (83-108); pH 7.23 (7.35-7.45)
[2024-10-16 01:38] LABS: O2 Therapy Bipap
[2024-10-16 01:39] LABS: PCO2 76 mmHg (35-48)
--- NOTE | 2024-10-16 02:57 | PTCARENOTE ---
Repeat ABG done. Critical C02 76 reported to DANIA Sanchez. Order received to transfer patient to ICU. Report given to Amelia ROLL EDGE STITCHER HAND. Pt transferred in bed to room 3359 with belongings. DANIA unable to reach .
--- NOTE | 2024-10-16 03:18 | PTCARENOTE ---
received pt from IMU, report at bedside, patient obtunded, not able to follow commands, pupils pinpoint and sluggish. sternal chest rub and barely arousable however he is responding to painful stimuli - pt on bipap 20/5, condom cath not adhering,
patient placed in brief, cream put in groin for MASD to groin/under scrotum and sacral slit) patient resting comfortably at this time, 97% O2, temp 99.0 after IV tylenol, pt in afib with hr 90-110 with periods of 140
[2024-10-16 05:52] LABS: ALT (SGPT) 34 U/L (0-50); AST (SGOT) 44 U/L (17-59); Alkaline Phosphatase 77 U/L (38-126); Blood Urea Nitrogen 41 mg/dl (9-20); Calcium 8.5 mg/dl (8.4-10.2); Carbon Dioxide 35 mmol/L (22-30); Chloride 98 mmol/L (98-107); Estimated Creatinine Clearance 65 ml/min; Glucose 77 mg/dl (70-99); Potassium 5.4 mmol/L (3.5-5.1); Sodium 138 mmol/L (135-145); Total Bilirubin 1.3 mg/dl (0.2-1.3); Total Protein 6.7 g/dl (6.3-8.2); eGFR > 60.00
[2024-10-16 06:16] LABS: INR 1.39; PT 17.4 Sec (11.4-14.6)
--- NOTE | 2024-10-16 07:18 | CON.INTV ---
Consultation
Consultation Request
Date/Time Consultation Requested: 10/16/2024-7 AM
Date/Time Consultation Performed: 10/16/2024-7 AM
Requesting Provider: Hospitalist
Performing Provider: Dr. Moralez
Reason for Consultation: Respiratory failure/critical care management
Medical History
-
Chief Complaint: Shortness of breath
History of Present Illness:
84-year-old former smoking obese male with a history of COPD, atrial fibrillation, heart failure preserved EF, hypertension, hyperlipidemia, ROCIO who presented with lethargy and shortness of breath with progressed requiring noninvasive ventilation
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 Patient remains lethargic. He has mild shortness of breath and offers no complaints of chest pain or abdominal pain. He does have
some lower extremity swelling. Review of systems was inadequate due to underlying lethargy.
Past Medical History
Past Medical History: None (Hypertension. Hyperlipidemia. COPD. Former smoker. Obesity. Obstructive sleep apnea. Permanent atrial fibrillation. Gout. Degenerative disc disease. Septoplasty. Spinal fusion. Ankle fusion. ICD. Ruptured
appendix.)
Social History
Tobacco: Former Smoker
Alcohol: Former
Personal:
Living: With Family
Occupational Exposures: No known asbestos exposure
Environmental Exposures: No known tuberculosis exposure
Family History
Family History: Reviewed & Not Pertinent (Father-leukemia. Mother-CAD. Sibling multiple sclerosis)
Allergies / Home Medications
Allergies
Allergy/AdvReac Type Severity Reaction Status Date / Time
codeine Allergy hallucinati Verified 06/23/22 14:53
ons
hydrocodone [Hydrocodone] Allergy HALLUCINATI Verified 06/23/22 14:53
ONS
Home Medications
�Medication �Instructions �Recorded �Confirmed �Last Taken �Type
apixaban 5 mg tablet (Eliquis) 5 mg PO BID Blood clot 02/07/21 10/14/24 06/22/22 22:00 History
prevention/tx
pravastatin 40 mg tablet 80 mg PO HS High cholesterol 07/07/21 10/14/24 06/22/22 22:00 History
allopurinol 100 mg tablet 100 mg PO DAILY Gout 06/25/22 10/14/24 Unknown History
finasteride 5 mg tablet 5 mg PO DAILY Urinary issue 06/25/22 10/14/24 Unknown History
tamsulosin 0.4 mg capsule 0.4 mg PO HS Urinary issue 06/25/22 10/14/24 Unknown History
carvedilol 25 mg tablet (Coreg) 25 mg PO BID Heart 07/04/22 10/14/24 Unknown History
Disease/Condition
cholecalciferol (vitamin D3) 50 50 mcg PO DAILY Supplement 10/14/24 10/14/24 Unknown History
mcg (2,000 unit) tablet
cyanocobalamin (vitamin B-12) 1,000 mcg PO DAILY Supplement 10/14/24 10/14/24 Unknown History
1,000 mcg tablet
furosemide 40 mg tablet 40 mg PO DAILY Lung/Breathing 10/14/24 10/14/24 Unknown History
Issues
spironolactone 25 mg tablet 25 mg PO DAILY Fluid 10/14/24 10/14/24 Unknown History
Retention/Swelling
Review of Systems
-
Unable to Obtain full review of systems at this time due to: Other (Per HPI)
Vitals / Labs / Diagnostic Testing
Vital Signs
Temp Pulse Resp BP Pulse Ox
100.2 F 99 15 121/87 97
10/16/24 01:09 10/16/24 03:15 10/16/24 03:15 10/16/24 03:00 10/16/24 03:15
Lab Data
10/15/24 23:27
10/16/24 04:39
Laboratory Results
10/15/24 10/16/24 10/16/24
23:07 01:28 04:39
PT Cancelled
INR Cancelled
pH 7.22 L 7.23 L
pCO2 79 H* 76 H*
pO2 123 H 109 H
HCO3 32.3 H 31.8 H
O2 Delivery Level Bipap
10/16/24 10/16/24
05:59 06:00
PT 17.4 H
INR 1.39
pH Cancelled
pCO2 Cancelled
pO2 Cancelled
HCO3 Cancelled
O2 Delivery Level Cancelled
Microbiology
10/13/24 21:10 Urine Urine Culture - Final
10/13/24 19:43 Nasal Swab Influenza Types A & B (LARISSA) - Final
Influenza A Positive, NAAT
Diagnostic Testing:
Physical Exam
-
Exam:
Well-nourished and well-developed in no apparent distress
HEENT-atraumatic, normocephalic
Neck-supple, no JVD, no bruit
Heart-regular rate and rhythm-no murmurs, rubs or gallops
Chest with diminished breath sounds, rare crackles, prolonged expiratory time, minimal wheezing
Abdomen-soft, nontender, nondistended, no hepatosplenomegaly
Extremities-no cyanosis, clubbing, edema and good peripheral pulses
Integument-intact, no rashes, lesions or ecchymosis
Neurologically lethargic, moving extremities grossly nonfocal
Assessment
-
84-year-old former smoking obese male with a history of COPD, atrial fibrillation, heart failure preserved EF, hypertension, hyperlipidemia, ROCIO who presented with lethargy and shortness of breath with progressed requiring noninvasive ventilation
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
Respiratory failure requiring noninvasive ventilation to prevent intubation
ABG prior to BiPAP 10/15/2024--79/123/7.22
ABG on BiPAP 10/16/2024--76/109/7.23
Sepsis
Influenza A
Chronic heart failure reduced EF
COPD with mild acute exacerbation
Toxic metabolic encephalopathy
Mild macrocytic anemia-hemoglobin 11.1
Thrombocytopenia-platelet 89
Mild hyperkalemia
Conditions present prior to admission:
Hypertension.
Hyperlipidemia.
COPD-Gold stage II
Chronic hypercapnia
Former smoker.
Former alcohol abuse
Obesity.
Obstructive sleep apnea.
Permanent atrial fibrillation-on anticoagulation
History of SVT ablation
History of heart failure preserved EF
Mild aortic stenosis
Moderate mitral regurgitation
Gout.
Degenerative disc disease.
BPH
History of GI bleed
Internal hemorrhoids
Chronic constipation
Septoplasty. Spinal fusion. Left ankle fusion 2001. Appendectomy/ruptured appendix 2000. ICD.
Plan
Respiratory decompensation with metabolic encephalopathy-stroke alert was called-CT head negative, neurology involved
Transferred to ICU in critical condition
Supplemental oxygen as needed
Noninvasive ventilation-20/6 cm-tolerating
Follow ABG or VBG
Nebulizers
Observe off steroids
Check cultures
Influenza a positive
Tamiflu
Observe off antibiotics with procalcitonin normal
Atrial fibrillation rate control
Eliquis continues
Monitor for fluid overload
Diuresis as tolerated
Monitor renal function, electrolytes, intake/output, lower extremity edema and weight
Replace electrolytes as needed
Neurology evaluation pending
Stroke alert was called
CT head x 2 summarized below
Follow hemoglobin
Transfuse as needed
Monitor renal function
Replace electrolytes
DVT prophylaxis-on Eliquis
Nutrition
Early mobilization
Last saw Dr. Bolton 07/30/[id number] as an outpatient-repeat sleep study and potential CPAP or BiPAP use
Critical care statement: A total of 55 minutes of critical care time was provided for this patient today. This includes management of unstable vital signs, evaluation of the patient at bedside, reviewing the patient's pertinent medical records
including radiographs, management of noninvasive ventilation, microbiology, laboratory evaluations, and discussion with primary team, consultants, pharmacy, nutrition, physical therapy, case management, charge nurse, critical care nursing, and
respiratory therapy.
Diagnostic data:
Chest x-ray 10/15/2024-suboptimal inspiration, mild interstitial airspace disease right lung-atelectasis or pneumonia
CT head 10/15/2024-no acute intracranial abnormalities, moderate diffuse cortical atrophy
CT head 10/16/2024-no acute intracranial abnormalities
Echocardiogram-03/29/19: EF 30-35%. Mild mitral regurgitation. PA pressures 31-33 mmHg. Compared to 2018, EF largely unchanged. No pericardial effusion.�������
Cardiac catheterization-02/24/18: Luminal irregularities. Severe LV dysfunction 30% EF . LVEDP 30.�������
Echocardiogram-03/02/18: Severe global hypokinesis EF 20%. Moderate mitral regurgitation. Dilated and hypokinetic right heart. Moderate pulmonary hypertension 49-54 mm systolic.�������.�������
Echocardiogram-06/24/22: EF 55-60%. Mild aortic stenosis. Estimated PA pressures 56-61 mmHg.
Echocardiogram 04/02/2024-EF 50-55%, moderate mitral regurgitation, mild aortic stenosis, PA systolic 55-60����
ABG-07/01/22: 7.48-PCO2 61-PO2 100-bicarbonate 45. Mixed respiratory acidosis and metabolic alkalosis.
Spirometry-07/30/22: Spirometry demonstrated probable mixed obstructive and restrictive lung disease. The forced vital capacity was 2.05 L or 55% of predicted.
[2024-10-16 07:48] LABS: Folate 12.7 ng/ml (2.76-20); Vitamin B12 697 pg/ml (239-931)
--- NOTE | 2024-10-16 08:00 | PTCARENOTE ---
Received patient from shift superintendent. patient is minimally responsive, answers to Cody. Confused, agitated, on bipap 20/5. He is in an Afib rhythm on the monitor. Incontinent of bowel and bladder, briefed. PVD discoloration to lower extremities.
will keep patient NPO. awaiting physician to bedside.
--- NOTE | 2024-10-16 08:29 | PTOTSP ---
Patient transferred from IMU to ICU due to decreased responsiveness, PT orders were not continued upon transfer. Will hold PT and require updated orders when appropriate to resume therapy services.
[2024-10-16] MEDS: LASIX PO (09:08)
[2024-10-16] MEDS: ALDACTONE PO (09:08)
[2024-10-16] MEDS: PROSCAR PO (09:09)
[2024-10-16] MEDS: VITAMIN D3 (cholecalciferol) PO (09:09)
[2024-10-16] MEDS: VITAMIN B-12 PO (09:09)
[2024-10-16] MEDS: ZYLOPRIM PO (09:10)
--- NOTE | 2024-10-16 09:50 | PTCARENOTE ---
Patient combative, swinging out and using expletives against staff. Disoriented/angry.
--- NOTE | 2024-10-16 11:46 | W.PN.HOSP.TC ---
Today's Communication/Plan
-
Keep BiPAP until ABG gets better
Use restraints as needed
Ceftriaxone
Transfer to stepdown
Assessment / Plan
Assessment / Plan
84-year-old male with mental status change

Head CT 10/16/2024-no acute changes. Mild diffuse cortical atrophy with nonspecific white matter changes

Awake and restless
Wants the mask off
Cardiovascular system S1-S2 appreciated
Chest clear to auscultation
Abdomen soft and nontender
No pedal edema
Confused
# Acute hypoxic and hypercarbic respiratory failure
Patient was started on BiPAP
# TME-present on admission and also stroke alert called 10-15-24 evening
TME likely secondary to influenza and also CO2 retention
Head CT negative for acute changes
Risperidone started-held
Speech evaluation
Despite explaining why he needs to keep the BiPAP mask on he still wants it off
1 dose of Haldol now
# influenza A
Continue Tamiflu
# Pancytopenia-likely viral
# Hyperkalemia-hold Aldactone
# UTI-await culture. Treat with ceftriaxone
# Paroxysmal atrial fibrillation-continue Eliquis and Coreg
# Chronic HFrEF-continue Coreg and Lasix, Hold Aldactone
Echo 824-EF 50 to 55%, dilated RV, normal RV function, pacer/ICD wire in RV, severely dilated LA, severely dilated RA, mild to moderate eccentric MR, mild , mild to moderate TR
# History of ICD placement
# COPD-nebs PRN
# History of sleep apnea-Does not use CPAP at home ( He does not like it)
# Hyperlipidemia-Continue statin
# Enlarged prostate-continue Finasteride, Flomax
# Obesity per BMI criteria
# Gout-continue allopurinol
# Ex-smoker
# DVT prophylaxis
# Full code
Discussed with ICU team at bedside
Cc time 32 min
Use restraints
Called [phone]-detailed conversation about noncompliance with CPAP, influenza, CO2 retention hypoxia etc. CODE STATUS readdressed and she wants him to be full code.
Anticipated Discharge: > 48 hours
Subjective/Interval History
-
Date of Service: October 16, 2024
Objective Data
-
Labs:
Laboratory Results
10/15/24 10/16/24 10/16/24
23:27 01:28 04:39
WBC 5.6
Hgb 11.1 L
Hct 35.7 L
Plt Count 89 L
PT Cancelled
INR Cancelled
HCO3 31.8 H
Sodium 134 L 138
Potassium 5.2 H 5.4 H
Chloride 98 98
Carbon Dioxide 31 H 35 H
BUN 35 H 41 H
Creatinine 1.0 1.1
Glucose 79 77
Calcium 8.6 8.5
Total Bilirubin 1.3
AST 44
ALT 34
Alkaline Phosphatase 77
10/16/24 10/16/24
05:59 06:00
WBC
Hgb
Hct
Plt Count
PT 17.4 H
INR 1.39
HCO3 Cancelled
Sodium
Potassium
Chloride
Carbon Dioxide
BUN
Creatinine
Glucose
Calcium
Total Bilirubin
AST
ALT
Alkaline Phosphatase
Vital Signs:
Vital Signs
Temp Pulse Resp BP Pulse Ox
98.7 F 83 15 129/93 95
10/16/24 08:00 10/16/24 10:45 10/16/24 10:45 10/16/24 10:30 10/16/24 10:45
I&O
10/15/24 10/16/24 10/17/24
06:59 06:59 06:59
Intake Total 2840 / 2840 600 / 600
Output Total 875 / 875
Balance 1965 / 1965 600 / 600
--- NOTE | 2024-10-16 11:56 | PTCARENOTE ---
Addendum entered by Lizeth Dunaway RN 10/16/24 12:55:
ordered soft limb restraints
Original Note:
Patient continued to be combative, jumped out of bed, bed alarm went off, assisted patient back to bed and reapplied Bipap. notified hospitalist. IV haldol ordered and rocephin. Physician to update Jyoti.
[2024-10-16] MEDS: HALDOL 1 MG IV (12:03)
[2024-10-16] MEDS: STERILE WATER FOR INJECTION 10 ML IV (12:03)
[2024-10-16] MEDS: ROCEPHIN 1000 MG IV (12:03)
[2024-10-16] MEDS: COREG 25 MG PO (12:26)
[2024-10-16] MEDS: PROSCAR 5 MG PO (12:26)
[2024-10-16] MEDS: ELIQUIS 5 MG PO (12:26)
[2024-10-16] MEDS: TAMIFLU 75 MG PO (12:26)
[2024-10-16] MEDS: ZYLOPRIM 100 MG PO (12:26)
[2024-10-16] MEDS: LASIX 40 MG PO (12:27)
--- NOTE | 2024-10-16 13:53 | PTCARENOTE ---
Gave patient a break from Bipap mask and some sips of water. Ok per hospitalist. Will place bipap back as patient continues to be confused.
--- NOTE | 2024-10-16 15:46 | CON.NEURO ---
Neuro Assessment/Plan
Assessment
patient with underlying heart failure, COPD, chronic respiratory failure admitted with flu
AMS due to toxic metabolic encephalopathy
doubt stroke
Plan
continue present management
Consultation
Order
Date of Consultation: 10/16/24
Requesting Provider: Daniel Yu
Reason for Consult: AMS, stroke alert
Subjective/Objective
Subjective Data
Date of Service: October 16, 2024
84-year-old former smoking obese male with a history of COPD, atrial fibrillation, heart failure preserved EF, hypertension, hyperlipidemia, ROCIO who presented with lethargy and shortness of breath with progressed requiring noninvasive ventilation
admitted for flu, acute on chronic respiratory failure.
~11 pm last night patient lethargic, not following commands, pinpoint pupils. stroke alert was called, head CT without acute findings.
Seen this morning, patient awake, lethargic, disoriented, he admits to chronically poor memory, denies any focal weakness or numbness
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
Objective Data
Vital Signs
Temp Pulse Resp BP Pulse Ox
36.5 C 93 19 142/82 93
10/16/24 12:06 10/16/24 15:15 10/16/24 15:15 10/16/24 15:01 10/16/24 15:00
Lab Results
10/15/24 23:27
10/16/24 04:39
PT 17.4 Sec (11.4-14.6) H 10/16/24 05:59
INR 1.39 10/16/24 05:59
Sodium 138 mmol/L (135-145) 10/16/24 04:39
Potassium 5.4 mmol/L (3.5-5.1) H 10/16/24 04:39
BUN 41 mg/dl (9-20) H 10/16/24 04:39
Glucose 77 mg/dl (70-99) 10/16/24 04:39
Calcium 8.5 mg/dl (8.4-10.2) 10/16/24 04:39
Ign-U-Gxbayvobwdt Pept 1690 pg/ml 10/13/24 21:10
Vitamin B12 697 pg/ml (239-931) 10/16/24 04:39
Patient Allergies
codeine Allergy (Verified 06/23/22 14:53)
hallucinations
hydrocodone [Hydrocodone] Allergy (Verified 06/23/22 14:53)
HALLUCINATIONS
Physical Exam
-
Awake, on bipap, lethargic, disoriented to age/month
pleasant and cooperative,
mildly dysarthric
face symmetric
full strength b/l UE/LE
Medications
-
Active Medications
Generic Name Dose Route Start Last Admin
Trade Name Freq PRN Reason Stop Dose Admin
Acetaminophen 650 mg 10/14/24 01:15 10/15/24 09:49
Acetaminophen 325 Mg Tablet PO 11/11/24 01:14 650 mg
Q4HPRN PRN Administration
Mild Pain / Temp > 101
Albuterol 2 puff 10/14/24 01:15
Albuterol Hfa [90 Mcg/Dose] Inhaler INH
R Q4HPRN PRN
SOB
Protocol
Albuterol/Ipratropium 3 ml 10/16/24 09:27
Ipratropium 0.5/Albuterol 3 Mg (3 Ml Ampul) INH
R Q4HPRN PRN
sob
Protocol
Allopurinol 100 mg 10/14/24 08:00 10/16/24 12:26
Allopurinol 100 Mg Tablet PO 11/11/24 07:59 100 mg
DAILY FRAN Administration
Apixaban 5 mg 10/14/24 08:00 10/16/24 12:26
Apixaban (Eliquis) 5 Mg Tablet PO 11/11/24 07:59 5 mg
BID FRAN Administration
Carvedilol 25 mg 10/14/24 08:00 10/16/24 12:26
Carvedilol 25 Mg Tablet PO 11/11/24 07:59 25 mg
BID FRAN Administration
Ceftriaxone Sodium 1,000 mg 10/16/24 12:00 10/16/24 12:03
Ceftriaxone 1000 Mg / 10 Ml Vial IV 1,000 mg
Q24H FRAN Administration
Cholecalciferol 50 mcg 10/14/24 08:00 10/16/24 09:09
Cholecalciferol (Vitamin D3) 50 Mcg Tablet (2,000 Units) PO 11/11/24 07:59 Not Given
DAILY FRAN
Finasteride 5 mg 10/14/24 08:00 10/16/24 12:26
Finasteride 5 Mg Tablet PO 11/11/24 07:59 5 mg
DAILY FRAN Administration
Furosemide 40 mg 10/16/24 08:00 10/16/24 12:27
Furosemide 40 Mg Tablet PO 11/13/24 07:59 40 mg
DAILY FRAN Administration
Oseltamivir Phosphate 75 mg 10/14/24 08:00 10/16/24 12:26
Oseltamivir (Tamiflu) 75 Mg Capsule PO 10/18/24 08:01 75 mg
BID FRAN Administration
Pravastatin Sodium 80 mg 10/14/24 22:00 10/16/24 00:58
Pravastatin 40 Mg Tablet PO 11/11/24 21:59 Not Given
HS FRAN
Risperidone 0.5 mg 10/15/24 14:17
Risperidone 0.5 Mg Tablet PO 11/12/24 14:16
Q4HPRN PRN
agitation
Sodium Chloride 0 flush 10/13/24 23:00
Sodium Chloride 0.9% (Flush) Syringe IV 11/10/24 22:59
PER PROTOCOL FRAN
Spironolactone 25 mg 10/14/24 08:00 10/16/24 09:08
Spironolactone 25 Mg Tablet PO 11/11/24 07:59 Not Given
DAILY FRAN
Sterile Water 10 ml 10/16/24 12:00 10/16/24 12:03
Sterile Water For Injection 10 Ml Vial IV 11/13/24 11:59 10 ml
Q24H FRAN Administration
Tamsulosin HCl 0.4 mg 10/14/24 22:00 10/16/24 00:58
Tamsulosin 0.4 Mg Capsule PO 11/11/24 21:59 Not Given
HS FRAN
Home Medications
�Medication �Instructions �Recorded
apixaban 5 mg tablet (Eliquis) 5 mg PO BID Blood clot 02/07/21
prevention/tx
pravastatin 40 mg tablet 80 mg PO HS High cholesterol 07/07/21
allopurinol 100 mg tablet 100 mg PO DAILY Gout 06/25/22
finasteride 5 mg tablet 5 mg PO DAILY Urinary issue 06/25/22
tamsulosin 0.4 mg capsule 0.4 mg PO HS Urinary issue 06/25/22
carvedilol 25 mg tablet (Coreg) 25 mg PO BID Heart 07/04/22
Disease/Condition
cholecalciferol (vitamin D3) 50 50 mcg PO DAILY Supplement 10/14/24
mcg (2,000 unit) tablet
cyanocobalamin (vitamin B-12) 1,000 mcg PO DAILY Supplement 10/14/24
1,000 mcg tablet
furosemide 40 mg tablet 40 mg PO DAILY Lung/Breathing 10/14/24
Issues
spironolactone 25 mg tablet 25 mg PO DAILY Fluid 10/14/24
Retention/Swelling
--- NOTE | 2024-10-16 19:00 | PTCARENOTE ---
prev shift vitals captured in flowsheet, can only verify accuracy of vitals starting at this time for shift.
--- NOTE | 2024-10-16 20:00 | PTCARENOTE ---
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 Bipap 20/5 Sat 95%. B/L IV WNL. pt incontinent urine, skin care, condom cath applied.
turned/repositioned, mouth care.
--- NOTE | 2024-10-16 22:41 | PTCARENOTE ---
vss, pt for tx to [id number].
[2024-10-16] MEDS: LOPRESSOR 5 MG IV (23:58)
[2024-10-17] VITALS (14 sets, daily range): BP systolic 128–186; BP diastolic 84–148; PULSE 2–115
--- NOTE | 2024-10-17 01:14 | PTCARENOTE ---
Recieved verbal report from Lena RN. Patient transferred from ICU to IMU room 2756. Patient on bipap and in bilateral wrist restraints. Patient continously asking to take mask off and states 'I hate this mask and I would take it off I could'.
Educated patient on importance of bipap. Gave patient mouth swabs of water when mask was off for short period of time. Assessment and vital signs as documented.
[2024-10-17] MEDS: LOPRESSOR 5 MG IV ×3 (04:17→22:34)
[2024-10-17 04:55] LABS: Hematocrit 31.9 % (39.0-52.0); Hemoglobin 10.5 g/dL (13.0-18.0); Mean Corp Hgb Conc. 32.9 g/dL (33.0-37.0); Mean Corpuscular Hgb 33.3 pg (27.0-31.0); Mean Corpuscular Volume 101.3 fL (80.0-94.0); Mean Platelet Volume 10.4 fL (7.4-10.4); Platelet Count 76 10^3/uL (130-400); Red Blood Cell Count 3.15 10^6/uL (4.70-6.10); Red Cell Dist. Width 13.4 % (11.5-14.5); White Blood Cell Count 4.2 10^3/uL (4.8-10.8)
[2024-10-17 05:03] LABS: Blood Urea Nitrogen 39 mg/dl (9-20); Calcium 8.7 mg/dl (8.4-10.2); Carbon Dioxide 32 mmol/L (22-30); Chloride 101 mmol/L (98-107); Estimated Creatinine Clearance 89 ml/min; Glucose 77 mg/dl (70-99); Potassium 4.5 mmol/L (3.5-5.1); Sodium 140 mmol/L (135-145); eGFR > 60.00
[2024-10-17] MEDS: COREG PO ×2 (08:39→19:38)
[2024-10-17] MEDS: TAMIFLU PO ×2 (08:40→19:39)
[2024-10-17] MEDS: LASIX PO (08:40)
[2024-10-17] MEDS: VITAMIN D3 (cholecalciferol) PO (08:40)
[2024-10-17] MEDS: ELIQUIS PO ×2 (08:40→19:39)
[2024-10-17] MEDS: PROSCAR PO (08:40)
[2024-10-17] MEDS: ZYLOPRIM PO (08:42)
--- NOTE | 2024-10-17 10:03 | W.PN.HOSP.TC ---
Today's Communication/Plan
-
Add doxycycline
BiPAP during naps and at night
Use restraints as needed to keep the patient safe
Speech evaluation
Assessment / Plan
Assessment / Plan
84-year-old male with mental status change

Head CT 10/16/2024-no acute changes. Mild diffuse cortical atrophy with nonspecific white matter changes

Awake and restless
Wants the mask off
Cardiovascular system S1-S2 appreciated
Chest clear to auscultation
Abdomen soft and nontender
No pedal edema
Confused
# Acute hypoxic and hypercarbic respiratory failure
Patient was started on BiPAP
Repeat chest i-oij-qtrwoaooysjj airspace rbbfszb-Bihymzbsj-xskulmhhks sputum-add doxycycline
# TME-present on admission and also stroke alert called 10-15-24 evening
Delirium
TME likely secondary to influenza and also CO2 retention
Head CT negative for acute changes
Risperidone started-held
Speech evaluation ongoing
Evaluation appreciated. Doubt stroke
He looks slightly better than yesterday but still confused
# Influenza A-Continue Tamiflu
# Pancytopenia-likely viral
# Hyperkalemia-Hold Aldactone
# UTI ruled out. Cultures are negative
# Paroxysmal atrial fibrillation-continue Eliquis and Coreg.
# Chronic HFrEF-Continue Coreg and Lasix, Hold Aldactone
Echo 824-EF 50 to 55%, dilated RV, normal RV function, pacer/ICD wire in RV, severely dilated LA, severely dilated RA, mild to moderate eccentric MR, mild , mild to moderate TR
# History of ICD placement
# COPD-nebs PRN
# History of Sleep Apnea-Does not use CPAP at home ( He does not like it)
# Hyperlipidemia-Continue statin
# Enlarged prostate-Continue Finasteride, Flomax
# Short-term memory loss
# Obesity per BMI criteria
# Gout-Continue allopurinol
# Ex-Smoker
# DVT Prophylaxis
# Full Code
Discussed with nursing
Discussed with pulmonary
Use restraints as needed
Called [phone]-Detailed conversation about noncompliance with CPAP, influenza, CO2 retention Hypoxia etc. CODE STATUS readdressed and she wants him to be full code.
Updated again today. She requested an update every day
She admits that patient does have short-term memory loss. We discussed that that could have contributed to his delirium
Time spent over 50 min
Anticipated Discharge: > 48 hours
Subjective/Interval History
-
Date of Service: October 17, 2024
Objective Data
-
Labs:
Laboratory Results
10/17/24
04:33
WBC 4.2 L
Hgb 10.5 L
Hct 31.9 L
Plt Count 76 L
Sodium 140
Potassium 4.5
Chloride 101
Carbon Dioxide 32 H
BUN 39 H
Creatinine 0.8
Glucose 77
Calcium 8.7
Vital Signs:
Vital Signs
Temp Pulse Resp BP Pulse Ox
99.0 F 160 22 137/110 93
10/17/24 07:31 10/17/24 08:50 10/17/24 05:00 10/17/24 04:17 10/17/24 05:00
I&O
10/16/24 10/17/24 10/18/24
06:59 06:59 06:59
Intake Total 600 / 600
Output Total 550 / 550
Balance 600 / 600 -550 / -550
[2024-10-17] MEDS: VIBRAMYCIN PO ×2 (12:04→19:39)
--- NOTE | 2024-10-17 14:10 | W.PN.PUL.V3 ---
Today's Communication / Plan
-
Noninvasive ventilation
Follow ABG if needed
Begin Decadron
Continue nebulizers
Tamiflu
Assessment
-
84-year-old former smoking obese male with a history of COPD, atrial fibrillation, heart failure preserved EF, hypertension, hyperlipidemia, ROCIO who presented with lethargy and shortness of breath with progressed requiring noninvasive ventilation
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
Respiratory failure requiring noninvasive ventilation to prevent intubation
ABG prior to BiPAP 10/15/2024--79/123/7.22
ABG on BiPAP 10/16/2024--76/109/7.23
Sepsis
Influenza A
Chronic heart failure reduced EF
COPD with mild acute exacerbation
Toxic metabolic encephalopathy
Mild macrocytic anemia-hemoglobin 11.1
Thrombocytopenia-platelet 89
Mild hyperkalemia
Conditions present prior to admission:
Hypertension.
Hyperlipidemia.
COPD-Gold stage II
Chronic hypercapnia
Former smoker.
Former alcohol abuse
Obesity.
Obstructive sleep apnea.
Permanent atrial fibrillation-on anticoagulation
History of SVT ablation
History of heart failure preserved EF
Mild aortic stenosis
Moderate mitral regurgitation
Gout.
Degenerative disc disease.
BPH
History of GI bleed
Internal hemorrhoids
Chronic constipation
Septoplasty. Spinal fusion. Left ankle fusion 2001. Appendectomy/ruptured appendix 2000. ICD.
Plan
Respiratory decompensation with metabolic encephalopathy-stroke alert was called-CT head negative, neurology involved
Transferred to ICU in critical condition
Supplemental oxygen as needed
Noninvasive ventilation-20/6 cm-tolerating
Follow ABG or VBG
Nebulizers
Begin steroids with marginal respiratory status and expiratory rhonchi/wheezing
Chest x-ray 10/17/2024-mild interstitial airspace disease at the right lung base could be pneumonia and mild cardiomegaly without overt CHF
Cultures reviewed
Blood cultures negative
Urine culture negative
Unable to produce sputum
Influenza a positive
Tamiflu
Doxycycline continues
Atrial fibrillation rate control
Eliquis continues
Monitor for fluid overload
Diuresis as tolerated
Monitor renal function, electrolytes, intake/output, lower extremity edema and weight
Replace electrolytes as needed
Neurology evaluation noted-suspected toxic metabolic encephalopathy, doubt stroke
Stroke alert was called
CT head x 2 summarized below
Follow hemoglobin-currently 10.5
Transfuse as needed
Monitor renal function
Replace electrolytes as needed
DVT prophylaxis-on Eliquis
Nutrition with aspiration precautions
E bedside range of motion and eventual physical therapy
Last saw Dr. Bolton [id number]/30/[id number] as an outpatient-repeat sleep study and potential CPAP or BiPAP use
Reviewed the patient's pertinent medical records including radiographs, management of noninvasive ventilation, microbiology, laboratory evaluations, and discussion with primary team, consultants, pharmacy, nutrition, physical therapy, case
management, charge nurse, critical care nursing, and respiratory therapy.
Diagnostic data:
Chest x-ray 10/15/2024-suboptimal inspiration, mild interstitial airspace disease right lung-atelectasis or pneumonia
CT head 10/15/2024-no acute intracranial abnormalities, moderate diffuse cortical atrophy
CT head 10/16/2024-no acute intracranial abnormalities
Echocardiogram-03/29/19: EF 30-35%. Mild mitral regurgitation. PA pressures 31-33 mmHg. Compared to 2018, EF largely unchanged. No pericardial effusion.�������
Cardiac catheterization-02/24/18: Luminal irregularities. Severe LV dysfunction 30% EF . LVEDP 30.�������
Echocardiogram-03/02/18: Severe global hypokinesis EF 20%. Moderate mitral regurgitation. Dilated and hypokinetic right heart. Moderate pulmonary hypertension 49-54 mm systolic.�������.�������
Echocardiogram-06/24/22: EF 55-60%. Mild aortic stenosis. Estimated PA pressures 56-61 mmHg.
Echocardiogram 04/02/2024-EF 50-55%, moderate mitral regurgitation, mild aortic stenosis, PA systolic 55-60����
ABG-07/01/22: 7.48-PCO2 61-PO2 100-bicarbonate 45. Mixed respiratory acidosis and metabolic alkalosis.
Spirometry-07/30/22: Spirometry demonstrated probable mixed obstructive and restrictive lung disease. The forced vital capacity was 2.05 L or 55% of predicted.
Subjective Data
-
Date of Service:
Date of Service: October 17, 2024
Chief Complaint: Pulmonary Follow Up and Dyspnea Follow Up
Subjective:
Still with significant shortness of breath, no chest pain, abdominal pain, productive cough or
Review of Systems
General: Other (Per HPI)
Objective Data
Data Reviewed
Vital Signs / I&O:
Vital Signs
Temp Pulse Resp BP Pulse Ox
97.9 F 110 20 168/107 95
10/17/24 12:11 10/17/24 14:00 10/17/24 14:00 10/17/24 14:00 10/17/24 14:00
Intake and Output
10/16/24 10/17/24 10/18/24
06:59 06:59 06:59
Intake Total 600 / 600
Output Total 550 / 550
Balance 600 / 600 -550 / -550
SaO2: 95
Nasal Cannula flow liters per minute: 4
Physical Exam
General: Respiratory Distress (Mild) and Comfortable
HEENT: Normocephalic, Anicteric and Moist Mucous Membranes
Cardiovascular: Regular Rhythm, Murmur and Peripheral Edema
Respiratory: Clear (Diminished breath sounds and prolonged expiratory time), Crackles (Basilar), Rhonchi ( few expiratory), Accessory Resp Muscle Use (Mild) and Stridor (n)
GI: Soft, Distended and Non Tender
Neurology: Awake, Alert and No Motor Deficits
Skin: Warm, Good Color, Cyanosis (n) and Jaundice (n)
Labs/Micro/Reports
Lab Data
10/17/24 04:33
10/17/24 04:33
Microbiology
10/15/24 23:27 Blood/Venous Blood Culture - Preliminary
No Growth in 24 hours- Final report to follow
10/13/24 21:10 Urine Urine Culture - Final
[2024-10-17] MEDS: DUONEB 3 ML INH ×2 (15:11→19:19)
[2024-10-17] MEDS: DECADRON 4 MG IV ×2 (16:52→21:51)
[2024-10-17] MEDS: FLOMAX PO (19:39)
[2024-10-17] MEDS: PRAVACHOL PO (19:39)
[2024-10-18] VITALS (15 sets, daily range): BP systolic 110–187; BP diastolic 70–107; PULSE 2–75; BMI 35.9
[2024-10-18 04:46] LABS: Hematocrit 33.6 % (39.0-52.0); Hemoglobin 10.9 g/dL (13.0-18.0); Mean Corp Hgb Conc. 32.4 g/dL (33.0-37.0); Mean Corpuscular Hgb 33.5 pg (27.0-31.0); Mean Corpuscular Volume 103.4 fL (80.0-94.0); Mean Platelet Volume 10.6 fL (7.4-10.4); Platelet Count 81 10^3/uL (130-400); Red Blood Cell Count 3.25 10^6/uL (4.70-6.10); White Blood Cell Count 2.9 10^3/uL (4.8-10.8)
[2024-10-18 05:02] LABS: Blood Urea Nitrogen 36 mg/dl (9-20); Calcium 8.8 mg/dl (8.4-10.2); Carbon Dioxide 32 mmol/L (22-30); Chloride 100 mmol/L (98-107); Estimated Creatinine Clearance 102 ml/min; Glucose 119 mg/dl (70-99); Sodium 142 mmol/L (135-145); eGFR > 60.00
[2024-10-18] MEDS: DECADRON 4 MG IV ×2 (06:00→15:49)
--- NOTE | 2024-10-18 07:30 | W.PN.HOSP.TC ---
Addendum entered and electronically signed by Yan Mann MD 10/18/24 21:31:
Attending Addendum-
I saw and evaluated the patient. I reviewed the resident�s note and agree with findings and plan as documented in the resident�s note. Sub: overnight taken off bipap, patient very agitated on interview. aggressive and paranoid. 'you guys are keeping
my away from me. why isnt she here. do you drive? i want you to go to my home and pick her up.' ROS unable to be obtained due to agitated stae, has no physical complaints Exam: Vitals reviewed in chart GEN- mild distress due to agitation
heart RRR lungs rhonchi @ bases b/l no wheeze abd soft LE no edema Neuro AAO x 2
Plan:
#Sepsis Secondary to Influenza A
- CXR with patchy opacities - R > L.
- Completed course of Tamiflu
- Supportive care
- Follow fever curve.
- DC abx- no indication
# TME
- from influenza and hypercarbia
- steroids contributing
- ct head x 2- no acute changes
- likely underlying cognitive deficit, baseline mentation reviewed with -has been having memory impairment and visual hallucinations seeing friendly ghosts
- Risperdal prn monitor Qtc
- check MRI r/o CVA
- c/s psych for eval
# Acute Hypoxemic Respiratory Failure
- wean o2 for sats 88-92%
- use bipap prn
# Pancytopenia
- viral induced and possibly AUD
- check CBC in am
# Paroxysmal Atrial Fibrillation
- rate controlled
- Continue carvedilol
- Continue Eliquis
# Chronic HFpEF
- Echo 04/24- EF 50-55%
- cont Lasix restart Aldactone and cont Coreg
- Follow I/Os, daily weights, fluid restrict
# Acute COPD Exacerbation - influenza induced
- taper dexamethasone as likely contributing to agitation and TME
- cont ATC duonebs
- Caution with O2 supplementation. maintain O2 sats 88-92%
- pulm on board appreciate input
#BPH
- Stable. Continue Flomax / Proscar.
#HLD- cont pravastatin
#GOUT- cont allopurinol
#H/O AUD- verify usage with
DVT Prophylaxis: On Eliquis
Code Status: Full
Time spent coordinating care, review of plan of care with resident, personally reviewed records in EMR, med rec, consults, notes, labs, radiology, d/w nursing � 54 mins
Original Note:
Today's Communication/Plan
-
Brain MRI
Psychiatric consult
Discontinue doxycycline
Wean Decadron
Sputum culture
Updated today
Assessment / Plan
Assessment / Plan
Patient is an 84y M with PMH significant for A-Fib, HFpEF and COPD who presents to ED for evaluation of mental status change and cough and SOB
#Sepsis Secondary to Influenza A
- CXR (10/17): There is mild interstitial airspace disease at the right lung base which may be atelectasis or mild right basilar pneumonia which is unchanged when compared with the prior study. Mild cardiomegaly without associated pulmonary edema
- Continue Tamiflu BID (today is last dose)
-Discontinue doxycycline
- Continue supportive care with supplemental O2 and BiPAP-wean as tolerated
-Wheezes not heard on auscultation-will taper Decadron
- Afebrile for the past 48 hours-follow fever curve.
- Speech eval-cleared for regular diet with thin liquids-advance diet
- Will attempt to send sputum culture again
# Acute on chronic altered mental status
-Exacerbated from influenza
-Head CT x 2 negative
-Talked to today-patient has had hallucinations and memory problems for the past year- likely underlying cognitive deficit
-Brain MRI
-Psychiatry consulted
-Restraints as needed
# Acute hypercapnic respiratory failure
-Resolved
-Maintain O2 sat between 88-92%
-Supplemental O2 if needed
# Pancytopenia
- Stable
- Most likely viral induced-cannot rule out pancytopenia due to chronic alcoholism (based on [facility] records, he does have a history of alcohol use disorder)
- Continue to monitor CBC
# Paroxysmal Atrial Fibrillation
- Monitor on telemetry.
- Heart rate between 130-150 today-Lopressor as needed minimal improvement-will start Cardizem drip
- Anticipate improvement with management of sepsis
- Continue carvedilol
- Continue Eliquis
# Chronic HFpEF
- Echo 04/24- EF 50-55%
- restart Lasix
- Weight is down almost 6 pounds from yesterday-patient is on the street cleaner side-continue to hold spironolactone
- Hyperkalemia resolved
- Follow I/Os, daily weights
#COPD
- History of ROCIO
- Patient noncompliant with CPAP at home
- Albuterol and DuoNeb PRN.
#BPH
- Stable. Continue Flomax / Proscar.
- Bladder scan protocol.
#HLD- cont pravastatin
#GOUT- cont allopurinol
DVT Prophylaxis: Eliquis
Code Status: Full
Anticipated Discharge: 24 - 48 hours
Subjective/Interval History
-
Date of Service: October 18, 2024
Patient is asking that we call his today. Explained that we have attempted multiple times to call which she has not picked up the phone.
Objective Data
-
Labs:
Laboratory Results
10/18/24
04:17
WBC 2.9 L
Hgb 10.9 L
Hct 33.6 L
Plt Count 81 L
Sodium 142
Potassium 5.0
Chloride 100
Carbon Dioxide 32 H
BUN 36 H
Creatinine 0.7
Glucose 119 H
Calcium 8.8
Vital Signs:
Vital Signs
Temp Pulse Resp BP Pulse Ox
98.2 F 76 12 164/91 93
10/18/24 03:10 10/18/24 04:00 10/18/24 04:00 10/18/24 04:00 10/18/24 04:00
I&O
10/17/24 10/18/24 10/19/24
06:59 06:59 06:59
Output Total 550 / 550
Balance -550 / -550
Review of Systems
-
History Source: Patient
Physical Exam
-
HEENT: Normocephalic and Atraumatic
Respiratory: Clear to Auscultation; Negative Wheezes or Crackles
Cardiac: S1/S2, Irregular Rhythm and Tachycardic
GI: Soft, Nontender, Normal Bowel Sounds and Distended
Musculoskeletal: No Clubbing, No Cyanosis and No Edema
Skin: Warm and Dry
Neuro: Awake and Other (Intermittent confusion and agitation)
[2024-10-18] MEDS: DUONEB 3 ML INH ×4 (07:38→19:41)
[2024-10-18] MEDS: TAMIFLU 75 MG PO (08:52)
[2024-10-18] MEDS: ELIQUIS 5 MG PO ×2 (08:54→21:09)
[2024-10-18] MEDS: VIBRAMYCIN 100 MG PO (08:54)
[2024-10-18] MEDS: LOPRESSOR 5 MG IV ×2 (09:02→17:07)
--- NOTE | 2024-10-18 09:56 | W.PN.PUL.V3 ---
Today's Communication / Plan
-
No change in steroids
Wean oxygen
Continue BiPAP
Continue nebulizers
Assessment
-
84-year-old former smoking obese male with a history of COPD, atrial fibrillation, heart failure preserved EF, hypertension, hyperlipidemia, ROCIO who presented with lethargy and shortness of breath with progressed requiring noninvasive ventilation
and transferred to ICU-reliability technician consulted for respiratory failure/influenza/critical care management 10/16/2024.
Respiratory failure requiring noninvasive ventilation to prevent intubation
ABG prior to BiPAP 10/15/2024--79/123/7.22
ABG on BiPAP 10/16/2024--76/109/7.23
Sepsis
Influenza A
Chronic heart failure reduced EF
COPD with mild acute exacerbation
Toxic metabolic encephalopathy
Mild macrocytic anemia-hemoglobin 11.1
Thrombocytopenia-platelet 89
Mild hyperkalemia
Conditions present prior to admission:
Hypertension.
Hyperlipidemia.
COPD-Gold stage II
Chronic hypercapnia
Former smoker.
Former alcohol abuse
Obesity.
Obstructive sleep apnea.
Permanent atrial fibrillation-on anticoagulation
History of SVT ablation
History of heart failure preserved EF
Mild aortic stenosis
Moderate mitral regurgitation
Gout.
Degenerative disc disease.
BPH
History of GI bleed
Internal hemorrhoids
Chronic constipation
Septoplasty. Spinal fusion. Left ankle fusion 2001. Appendectomy/ruptured appendix 2000. ICD.
Plan
Respiratory decompensation with metabolic encephalopathy-stroke alert was called-CT head negative, neurology involved
Transferred to ICU in critical condition-subsequently downgraded currently IMU
Supplemental oxygen as needed-currently on 2 L - 96% saturation
Noninvasive ventilation-20/6 cm-tolerating
Follow ABG or VBG if needed
Nebulizers continue
Steroids initiated 10/17/2024 with marginal respiratory status and expiratory rhonchi/wheezing-no change for now
Chest x-ray 10/17/2024-mild interstitial airspace disease at the right lung base could be pneumonia and mild cardiomegaly without overt CHF
Cultures reviewed
Blood cultures negative
Urine culture negative
Unable to produce sputum
Influenza a positive
Tamiflu
Doxycycline continues
Atrial fibrillation rate control
Eliquis continues
Monitor for fluid overload
Diuresis continues as tolerated--550 mL / 24-hour
Monitor renal function, electrolytes, intake/output, lower extremity edema and weight
Replace electrolytes as needed
Neurology evaluation noted-suspected toxic metabolic encephalopathy, doubt stroke
Stroke alert was called
CT head x 2 summarized below
Follow hemoglobin-currently 10.9 and stable reviewed with nursing
Transfuse as needed
Monitor renal function
Replace electrolytes as needed
DVT prophylaxis-on Eliquis
Nutrition with aspiration precautions
E bedside range of motion and eventual physical therapy
Last saw Dr. Bolton 07/30/[id number] as an outpatient-repeat sleep study and potential CPAP or BiPAP use
Reviewed with nursing
Diagnostic data:
Chest x-ray 10/15/2024-suboptimal inspiration, mild interstitial airspace disease right lung-atelectasis or pneumonia
CT head 10/15/2024-no acute intracranial abnormalities, moderate diffuse cortical atrophy
CT head 10/16/2024-no acute intracranial abnormalities
Echocardiogram-03/29/19: EF 30-35%. Mild mitral regurgitation. PA pressures 31-33 mmHg. Compared to 2018, EF largely unchanged. No pericardial effusion.�������
Cardiac catheterization-02/24/18: Luminal irregularities. Severe LV dysfunction 30% EF . LVEDP 30.�������
Echocardiogram-03/02/18: Severe global hypokinesis EF 20%. Moderate mitral regurgitation. Dilated and hypokinetic right heart. Moderate pulmonary hypertension 49-54 mm systolic.�������.�������
Echocardiogram-06/24/22: EF 55-60%. Mild aortic stenosis. Estimated PA pressures 56-61 mmHg.
Echocardiogram 04/02/2024-EF 50-55%, moderate mitral regurgitation, mild aortic stenosis, PA systolic 55-60����
ABG-07/01/22: 7.48-PCO2 61-PO2 100-bicarbonate 45. Mixed respiratory acidosis and metabolic alkalosis.
Spirometry-07/30/22: Spirometry demonstrated probable mixed obstructive and restrictive lung disease. The forced vital capacity was 2.05 L or 55% of predicted.
Subjective Data
-
Date of Service:
Date of Service: October 18, 2024
Chief Complaint: Pulmonary Follow Up and Dyspnea Follow Up
Subjective:
More alert, less shortness of breath, less oxygen requirements, on BiPAP, no respiratory distress
Review of Systems
General: Other (Per HPI)
Objective Data
Data Reviewed
Vital Signs / I&O:
Vital Signs
Temp Pulse Resp BP Pulse Ox
98 F 90 18 177/93 98
10/18/24 08:00 10/18/24 09:02 10/18/24 07:48 10/18/24 09:02 10/18/24 09:15
Intake and Output
10/17/24 10/18/24 10/19/24
06:59 06:59 06:59
Output Total 550 / 550
Balance -550 / -550
SaO2: 98
Nasal Cannula flow liters per minute: 3
Physical Exam
General: Respiratory Distress (Mild) and Comfortable
HEENT: Normocephalic, Anicteric and Moist Mucous Membranes
Cardiovascular: Regular Rhythm, Murmur and Peripheral Edema
Respiratory: Clear (Diminished breath sounds and prolonged expiratory time), Crackles (Basilar), Rhonchi ( few expiratory), Accessory Resp Muscle Use (Mild) and Stridor (n)
GI: Soft, Distended and Non Tender
Neurology: Awake, Alert and No Motor Deficits
Skin: Warm, Good Color, Cyanosis (n) and Jaundice (n)
Labs/Micro/Reports
Lab Data
10/18/24 04:17
10/18/24 04:17
Microbiology
10/15/24 23:27 Blood/Venous Blood Culture - Preliminary
No Growth in 48 hours- Final report to follow
10/13/24 21:10 Urine Urine Culture - Final
[2024-10-18] MEDS: ZYLOPRIM 100 MG PO (10:06)
[2024-10-18] MEDS: COREG 25 MG PO ×2 (10:07→21:09)
[2024-10-18] MEDS: PROSCAR 5 MG PO (10:07)
[2024-10-18] MEDS: VITAMIN D3 (cholecalciferol) 50 MCG PO (10:07)
[2024-10-18] MEDS: LASIX 40 MG PO (10:07)
--- NOTE | 2024-10-18 10:30 | PTCARENOTE ---
Pt received from night shift supervisor RN. Started on BiPAP 20/5 with 4L O2. Pt sleeping well, upon assessment he was easily arousable but would quickly go back to sleep. As the day went on pt started to wake up more and the BiPAP was able to be removed. His
mentation is not back to baseline, he has periods of lucidity followed by periods of yelling and paranoia. Currently in Afib with a rate in the 70's, pt hypertensive in the 170's. Pt currently on RA with a 93% sat, breath sounds shallow with some ex
wheezing. Pt is grossly incontinent of urine with attends in place. CLEO gutierrezin. IV sites intact. Updated pt's on the phone.
--- NOTE | 2024-10-18 12:52 | PTOTSP ---
Dysphagia Evaluation
Patient with acute on chronic risk factors for dysphagia/aspiration (i.e., sepsis/influenza A, PNA, TME; COPD, CHF, STM loss). Suspect functional swallowing based on clinical bedside swallowing evaluation. Frequent largely non-productive cough
noted before/between trials. Cannot fully r/o unrelated cough vs delayed aspiration response bedside - though no increase in cough frequency observed.
Plan of Care:
1. Regular, Thin Liquids
2. Medications - as best tolerated
3. Strategies: upright to 90 degrees, slow rate with breaks for breathing
4. Dysphagia tx at the acute care level for instruction in precautions/compensations and determine if further instrumental swallowing assessment warranted
--- NOTE | 2024-10-18 15:42 | CS.PSYCHR ---
Consult Summary - Psychiatry
-
Pt is an 84 yo male with PMH significant for A-Fib, HFpEF and COPD, who presented to ED for evaluation of change in mental status, significantly confused, disoriented per , and developed a hacking, non-productive cough. Pt presented in ED
sleepy, but easily awakened, confused. Pt diagnosed with influenza A, acute respiratory failure. Psychiatry asked to evaluate visual hallucinations, which have been going on for some time. Pt continues to be confused/disoriented although alert,
unable to give history. reports VH started after back surgery, possibly related to narcotic pain med- stopped due pt having an 'allergic' reaction. Visual hallucinations of ghosts have persisted, initially anxiety- provoking, but not
upsetting currently, described as friendly. reports pt has shown some mild cognitive problems, but is still able to play online bridge and Wordle. denies any parkinsonian sx. Pt has become more agitated in the past few days here, was
given Risperidone 0.5 mg, Zyprexa 5 mg IM on 10/15, Haldol 1 mg IV on 10/16. Pt has prn order for Risperidone, on hold for now. QTc 502 on 10/15.
PMH: permanent A Fib, HTN, HLD, COPD, ROICO, Degen disc dz, Gout
Psych Hx: denied other than unexplained recently VH as noted above
SH: retired, , former smoker, lives with family
MSE: pt resting in bed, calm, hard of hearing, confused/disoriented, poor historian. Pt states he was 'kidnapped' and 'brought down here', aware he is in the hospital. No agitation, no overt signs of hallucinations. Insight limited
Imp: TME, multifactorial, with agitation, Visual hallucinations, improving
Agree there could be underlying early/mild dementia; visual hallucinations can be associated with Lewy Body dz
Rec: continue current mgt, minimize sedating medications, manage agitation with prn Risperidone or lower-dose IV Haldol (0.25 to 0.5 mg)
Neurology eval as outpatient when medically stable. Will follow
--- NOTE | 2024-10-18 17:27 | PTCARENOTE ---
Rec'd pt at 1700. Very confused but mostly cooperative. HR remains A fib with periods of RVR. IV Lopressor PRN given. Pt able to be re-oriented somewhat
[2024-10-18] MEDS: CARDIZEM 125 IV (18:17)
--- NOTE | 2024-10-18 19:38 | PTCARENOTE ---
Per order, pt started on Cardizem drip. HR improved at 10mg/hr
[2024-10-18] MEDS: FLOMAX 0.4 MG PO (21:08)
[2024-10-18] MEDS: PRAVACHOL 80 MG PO (21:08)
--- NOTE | 2024-10-18 23:24 | PTCARENOTE ---
Pt ripped IV out of arm while cardizem gtt was running. IV team called and new site placed. Cardizem gtt off currently as HR remains at target 80-100 while in afib. BiPAP mask on with no complaints from patient. Resting in bed with call corral in
reach.
[2024-10-18] MEDS: DECADRON 2 MG IV (23:44)
[2024-10-19] VITALS (14 sets, daily range): BP systolic 101–170; BP diastolic 67–111; PULSE 2; BMI 35.8
[2024-10-19] MEDS: RISPERDAL M-TAB (ORALLY DISINTEGRATING) 0.5 MG PO (01:25)
--- NOTE | 2024-10-19 02:24 | PTCARENOTE ---
Pt increasingly agitated with bipap mask on. Notified MANAGER TALENT ACQUISITION. Risperidone ordered and administered. Call corral in reach.
[2024-10-19 05:15] LABS: Blood Urea Nitrogen 35 mg/dl (9-20); Calcium 8.7 mg/dl (8.4-10.2); Carbon Dioxide 36 mmol/L (22-30); Chloride 98 mmol/L (98-107); Estimated Creatinine Clearance 87 ml/min; Glucose 153 mg/dl (70-99); Potassium 4.4 mmol/L (3.5-5.1); Sodium 141 mmol/L (135-145); eGFR > 60.00
[2024-10-19 05:32] LABS: % Immature Granulocytes 0.7 % (0-0.5); % Lymphocytes 8.3 % (20.5-51.1); % Monocytes 5.2 % (1.7-9.3); % Neutrophils 85.8 % (42.2-75.2); Absolute Lymphocytes 0.4 10^3/uL (1.2-3.4); Absolute Monocytes 0.2 10^3/uL (0.1-0.6); Absolute Neutrophils 3.8 10^3/uL (1.4-6.5); Hematocrit 31.4 % (39.0-52.0); Hemoglobin 10.2 g/dL (13.0-18.0); Mean Corp Hgb Conc. 32.5 g/dL (33.0-37.0); Mean Corpuscular Hgb 32.8 pg (27.0-31.0); Nucleated Red Blood Cells % 0 % (-); Platelet Count 87 10^3/uL (130-400); Red Blood Cell Count 3.11 10^6/uL (4.70-6.10); Red Cell Dist. Width 12.7 % (11.5-14.5); White Blood Cell Count 4.4 10^3/uL (4.8-10.8)
--- NOTE | 2024-10-19 06:04 | PTCARENOTE ---
Pt unable to be reoriented. Agitated, pulling bipap mask off, pulled IV out, pulling leads off chest. Notified CLINICAL RESOURCE MANAGER. B/l wrist restraints ordered and placed. Call corral within reach.
[2024-10-19] MEDS: DUONEB 3 ML INH ×4 (07:20→19:33)
--- NOTE | 2024-10-19 07:28 | W.PN.HOSP.TC ---
Addendum entered and electronically signed by Yan Mann MD 10/19/24 21:21:
Attending Addendum-
I saw and evaluated the patient. I reviewed the resident�s note and agree with findings and plan as documented in the resident�s note. Sub: Feels greatly improved. No complaints. Very pleasant. 'can i offer you some breakfast?' per nursing has
periods of extreme agitation and threatening behavior. ROS full 10 point ROS reviewed and negative except as documented. Exam: Vitals reviewed in chart GEN-NAD heart RRR lungs rhonchi @ bases b/l no wheeze abd soft LE no edema Neuro AAO x 2
Plan:
#Sepsis Secondary to Influenza A
- CXR with patchy opacities
- Completed course of Tamiflu
- Supportive care
- Follow fever curve.
- resolved
# TME
- from influenza and hypercarbia
- steroids contributing
- ct head x 2- no acute changes
- likely underlying cognitive deficit, baseline mentation reviewed with -has been having memory impairment and visual hallucinations seeing friendly ghosts
- Risperdal vs haldol prn - monitoring Qtc
- check MRI r/o CVA-P
- appreciate psych input
# Acute Hypoxemic Respiratory Failure
- wean o2 for sats 88-92%
- bipap prn
# Pancytopenia
- viral induced and possibly AUD
- check CBC in am
# Paroxysmal Atrial Fibrillation
- rate controlled on Cardizem gtt
- in/out of sinus
- transition to PO cardizem
- Continue carvedilol
- Continue Eliquis
# Chronic HFpEF
- Echo 04/24- EF 50-55%
- cont Lasix restart Aldactone and cont Coreg
- Follow I/Os, daily weights, fluid restrict
# Acute COPD Exacerbation - influenza induced
- cont to taper dexamethasone
- cont ATC duonebs
- Caution with O2 supplementation. maintain O2 sats 88-92%
- pulm on board appreciate input
#BPH
- Stable. Continue Flomax / Proscar.
#HLD- cont pravastatin
#GOUT- cont allopurinol
#H/O AUD- previous usage, out of WD window
DVT Prophylaxis: On Eliquis
Code Status: Full-> DNI d/w POA
ACP
Patient unable to consent to discuss, d/w POA/, time spent explanation of advance directives, changes in health status, patient�s health care wishes if the patient becomes unable to make health decisions, goals of care, code status, and
prognosis-confirmed DNI status but not complete DNR, will continue to revisit- 19 minutes
Time spent coordinating care, review of plan of care with resident, personally reviewed previous records in EMR, med rec, labs, radiology, d/w nursing, family total time documented is exclusive of any additional time listed that was spent in advance
care planning discussion -�52 minutes
Original Note:
Today's Communication/Plan
-
Transition from Cardizem drip to oral diltiazem
Brain MRI
Updated
Wean O2 as tolerated
Assessment / Plan
Assessment / Plan
Patient is an 84y M with PMH significant for A-Fib, HFpEF and COPD who presents to ED for evaluation of mental status change and cough and SOB
#Sepsis Secondary to Influenza A
- CXR (10/17): There is mild interstitial airspace disease at the right lung base which may be atelectasis or mild right basilar pneumonia which is unchanged when compared with the prior study. Mild cardiomegaly without associated pulmonary edema
- Completed course of Tamiflu BID
- Currently off antibiotics
- Continue supportive care with supplemental O2 and BiPAP-wean as tolerated
- Wheezes not heard on auscultation-on Decadron 2mg
- Afebrile for the past 72 hours-follow fever curve.
- Speech eval-cleared for regular diet with thin liquids-advance diet
- Will attempt to send sputum culture
# Acute on chronic altered mental status
-Exacerbated from influenza
-Head CT x 2 negative
-Talked to -patient has had hallucinations and memory problems for the past year- likely underlying cognitive deficit- denies recent heavy alcohol drinking (mentions usually half a glass of wine daily-He had not been drinking for the past 3
weeks prior to admission)
-Brain MRI: Pending
-Psychiatry consulted�appreciate input�visual hallucinations can be associated with Lewy Body dementia
-Restraints as needed
-Can be downgraded to telemetry later today or tomorrow
# Acute hypercapnic respiratory failure
-Resolved
-Maintain O2 sat between 88-92%
-Patient did not tolerate BiPAP last night and came off it
-Supplemental O2 as needed (currently on 4 L nasal cannula)
# Pancytopenia
- Stable
- Most likely viral induced-cannot rule out pancytopenia due to chronic alcoholism (based on [facility] records, he does have a history of alcohol use disorder)
- Continue to monitor CBC
# Paroxysmal Atrial Fibrillation
- Monitor on telemetry
- Heart rate between 100-130 today-Lopressor as needed minimal improvement
- Will transition from Cardizem drip to oral diltiazem 120 today
- Anticipate improvement with management of sepsis
- Continue carvedilol
- Continue Eliquis
# Chronic HFpEF
- Echo 04/24- EF 50-55%
- restarted Lasix and Aldactone
- Weight is about the same as yesterday
- Hyperkalemia resolved
- Follow I/Os, daily weights
#COPD
- History of ROCIO
- Patient noncompliant with CPAP at home
- Albuterol inh and DuoNeb PRN.
#BPH
- Stable. Continue Flomax / Proscar.
- Bladder scan protocol.
#HLD- cont pravastatin
#GOUT- cont allopurinol
DVT Prophylaxis: Eliquis
Code Status: Full
Updated
Anticipated Discharge: 24 - 48 hours
Subjective/Interval History
-
Date of Service: October 19, 2024
Patient remains confused and short tempered during morning visit. Mentions he wants us to call his . Told him that I just called his about an hour ago but he wants me to contact her again.
Objective Data
-
Labs:
Laboratory Results
10/19/24
04:22
WBC 4.4 L
Hgb 10.2 L
Hct 31.4 L
Plt Count 87 L
Sodium 141
Potassium 4.4
Chloride 98
Carbon Dioxide 36 H
BUN 35 H
Creatinine 0.8
Glucose 153 H
Calcium 8.7
Vital Signs:
Vital Signs
Temp Pulse Resp BP Pulse Ox
97.6 F 108 23 136/83 98
10/19/24 03:00 10/19/24 06:00 10/19/24 06:00 10/19/24 04:27 10/19/24 06:00
I&O
10/18/24 10/19/24 10/20/24
06:59 06:59 06:59
Intake Total 240 / 240
Output Total 525 / 525
Balance -285 / -285
Review of Systems
-
Unable to obtain full review of systems at this time due to: Acuity (Patient confused)
Physical Exam
-
HEENT: Normocephalic and Atraumatic
Respiratory: Clear to Auscultation; Negative Wheezes or Crackles
Cardiac: S1/S2, Irregular Rhythm and Tachycardic
GI: Soft, Nontender, Normal Bowel Sounds and Distended
Musculoskeletal: No Clubbing, No Cyanosis and No Edema
Skin: Warm and Dry
Neuro: Awake, Alert and Other (oriented to time and place)
Psych: Confused and Agitated
[2024-10-19] MEDS: ZYLOPRIM 100 MG PO (08:01)
[2024-10-19] MEDS: ELIQUIS 5 MG PO ×2 (08:01→21:30)
[2024-10-19] MEDS: LASIX 40 MG PO (08:01)
[2024-10-19] MEDS: COREG 25 MG PO ×2 (08:02→21:29)
[2024-10-19] MEDS: DECADRON 2 MG IV ×2 (08:02→21:30)
[2024-10-19] MEDS: VITAMIN D3 (cholecalciferol) 50 MCG PO (08:02)
[2024-10-19] MEDS: PROSCAR 5 MG PO (08:02)
--- NOTE | 2024-10-19 09:18 | PTOTSP ---
Reviewed chart and noted pt agitated in restraints and still needs new PT orders s/p transfer from [address] [place] [address]. Will hold PT at this time.
--- NOTE | 2024-10-19 10:38 | W.PN.PUL.V3 ---
Today's Communication / Plan
-
Decrease steroids-may have a component of steroid psychosis
Continue nebulizers
Wean oxygen
Gentle diuresis
Psychiatry evaluation
Assessment
-
84-year-old former smoking obese male with a history of COPD, atrial fibrillation, heart failure preserved EF, hypertension, hyperlipidemia, ROCIO who presented with lethargy and shortness of breath with progressed requiring noninvasive ventilation
and transferred to ICU-cryptographic technician consulted for respiratory failure/influenza/critical care management 10/16/2024.
Respiratory failure requiring noninvasive ventilation to prevent intubation
ABG prior to BiPAP 10/15/2024--79/123/7.22
ABG on BiPAP 10/16/2024--76/109/7.23
Sepsis
Influenza A
Chronic heart failure reduced EF
COPD with mild acute exacerbation
Toxic metabolic encephalopathy
Mild macrocytic anemia-hemoglobin 11.1
Thrombocytopenia-platelet 89
Mild hyperkalemia
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
Conditions present prior to admission:
Hypertension.
Hyperlipidemia.
COPD-Gold stage II
Chronic hypercapnia
Former smoker.
Former alcohol abuse
Obesity.
Obstructive sleep apnea.
Permanent atrial fibrillation-on anticoagulation
History of SVT ablation
History of heart failure preserved EF
Mild aortic stenosis
Moderate mitral regurgitation
Gout.
Degenerative disc disease.
BPH
History of GI bleed
Internal hemorrhoids
Chronic constipation
Septoplasty. Spinal fusion. Left ankle fusion 2001. Appendectomy/ruptured appendix 2000. ICD.
Plan
Respiratory decompensation with metabolic encephalopathy-stroke alert was called-CT head negative, neurology involved
Transferred to ICU in critical condition-subsequently downgraded currently IMU-could further be downgraded to telemetry
Supplemental oxygen as needed-currently on 2 L - 96% saturation
Noninvasive ventilation-20/6 cm-tolerating
Follow ABG or VBG if needed
Nebulizers continue
Steroids initiated 10/17/2024 with marginal respiratory status and expiratory rhonchi/wheezing-no change for now-reduce with confusion and agitation
Chest x-ray 10/17/2024-mild interstitial airspace disease at the right lung base could be pneumonia and mild cardiomegaly without overt CHF
Cultures reviewed
Blood cultures negative
Urine culture negative
Unable to produce sputum
Influenza a positive
Tamiflu
Doxycycline continues
Atrial fibrillation rate control
Eliquis continues
Monitor for fluid overload
Diuresis continues as tolerated--285 mL / 24-hour
Monitor renal function, electrolytes, intake/output, lower extremity edema and weight
Replace electrolytes as needed
Neurology evaluation noted-suspected toxic metabolic encephalopathy, doubt stroke
Stroke alert was called
CT head x 2 summarized below
Follow hemoglobin-currently 10.9 and stable reviewed with nursing
Transfuse as needed
Monitor renal function
Replace electrolytes as needed
DVT prophylaxis-on Eliquis
Nutrition with aspiration precautions
Bedside range of motion and eventual physical therapy
Last saw Dr. Bolton 07/30/[id number] as an outpatient-repeat sleep study and potential CPAP or BiPAP use
Reviewed with nursing
Diagnostic data:
Chest x-ray 10/15/2024-suboptimal inspiration, mild interstitial airspace disease right lung-atelectasis or pneumonia
CT head 10/15/2024-no acute intracranial abnormalities, moderate diffuse cortical atrophy
CT head 10/16/2024-no acute intracranial abnormalities
.
Echocardiogram-03/29/19: EF 30-35%. Mild mitral regurgitation. PA pressures 31-33 mmHg. Compared to 2018, EF largely unchanged. No pericardial effusion.�������
Cardiac catheterization-02/24/18: Luminal irregularities. Severe LV dysfunction 30% EF . LVEDP 30.�������
Echocardiogram-03/02/18: Severe global hypokinesis EF 20%. Moderate mitral regurgitation. Dilated and hypokinetic right heart. Moderate pulmonary hypertension 49-54 mm systolic.�������.�������
Echocardiogram-06/24/22: EF 55-60%. Mild aortic stenosis. Estimated PA pressures 56-61 mmHg.
Echocardiogram 04/02/2024-EF 50-55%, moderate mitral regurgitation, mild aortic stenosis, PA systolic 55-60����
ABG-07/01/22: 7.48-PCO2 61-PO2 100-bicarbonate 45. Mixed respiratory acidosis and metabolic alkalosis.
Spirometry-07/30/22: Spirometry demonstrated probable mixed obstructive and restrictive lung disease. The forced vital capacity was 2.05 L or 55% of predicted.
Subjective Data
-
Date of Service:
Date of Service: October 19, 2024
Chief Complaint: Pulmonary Follow Up and Dyspnea Follow Up
Subjective:
Agitated last evening, delusional, denies any shortness of breath, productive cough, abdominal pain, not lethargic
Review of Systems
General: Other (Per HPI)
Objective Data
Data Reviewed
Vital Signs / I&O:
Vital Signs
Temp Pulse Resp BP Pulse Ox
97.7 F 89 23 148/90 98
10/19/24 07:05 10/19/24 08:02 10/19/24 06:00 10/19/24 08:02 10/19/24 06:00
Intake and Output
10/18/24 10/19/24 10/20/24
06:59 06:59 06:59
Intake Total 240 / 240 240 / 240
Output Total 525 / 525 300 / 300
Balance -285 / -285 -60 / -60
SaO2: 98
Nasal Cannula flow liters per minute: 1
Physical Exam
General: Respiratory Distress (Mild) and Comfortable
HEENT: Normocephalic, Anicteric and Moist Mucous Membranes
Cardiovascular: Regular Rhythm, Murmur and Peripheral Edema
Respiratory: Clear (Diminished breath sounds and prolonged expiratory time), Crackles (Basilar), Rhonchi ( few expiratory), Accessory Resp Muscle Use (Mild) and Stridor (n)
GI: Soft, Distended and Non Tender
Neurology: Awake, Alert and No Motor Deficits
Skin: Warm, Good Color, Cyanosis (n) and Jaundice (n)
Labs/Micro/Reports
Lab Data
10/19/24 04:22
10/19/24 04:22
Microbiology
10/15/24 23:27 Blood/Venous Blood Culture - Preliminary
No Growth in 72 hours- Final report to follow
--- NOTE | 2024-10-19 10:57 | PTCARENOTE ---
Rec'd pt this AM. agitated, confused, combative. Remains in restraints. HR elevated at start of shift. Cardizem titrated per order, improved now. Pt resistant to taking PO meds but was able to do so. Continues to try to pull at tubes and wires,
climb OOB. yelling out. Psych is evaluating med options.
--- NOTE | 2024-10-19 10:59 | W.PN.UPDATE ---
Update Note
Progress Note Update
Pt seen, reviewed with nursing staff, pharmacy. Pt agitated overnight, tried leave, pulled out IV, leads, was given now dose of Risperidone M tab 0.5 mg, with limited effect. This morning, pt is yelling out, stating he has been kidnapped, needs to
'get outta here'. Pt seen in bed, in soft wrist restraints, verbally agitated, awake but disoriented. Pt making eye contact, conversing but repeating he needs to leave, showing lack of insight. No overt hallucinations, but has persecutory
ideation. QTc has been borderline/mildly prolonged, 502 on last night.
Imp: TME multifactorial, with agitation, psychosis
Agree there could be underlying early/mild dementia; visual hallucinations can be associated with Lewy Body dz
Rec: Will try now dose of Risperidone M tab, monitoring QTc
Neurology eval as outpatient when medically stable. Will follow
[2024-10-19] MEDS: RISPERDAL M-TAB (ORALLY DISINTEGRATING) 1 MG PO (11:48)
[2024-10-19] MEDS: CARDIZEM CD 120 MG PO (13:52)
--- NOTE | 2024-10-19 15:17 | CM ---
Patient with Dx Sepsis Secondary to Influenza A, TME. MRI Brain pending. O2 1L. Reg diet. Receiving IV Decadron. Seen by Psych. Soft restraints. Per nurse; confused, yelling out. Pt/OT 10/14 recommends skilled rehab.
Spoke with patient's daughter Sydnee;
patient lives with his , son and daughter.
is home unwell at present with the flu.
Per dtr, he has had some hallucinations at home at night. He sleeps alone downstairs.
Dtr relays patient has a hard time hearing and daughter has observed that he can't always hear what staff is saying to him.
Per Sydnee, patient has always been a heavy drinker, however stopped drinking whiskey in his 70's, and had been drinking wine until about 3 weeks ago.
Daughter understands that her father has not been able to work with PT/OT since 10/14.
Plan continue to follow patient's mentation and rehab needs.
Plan TBD.
--- NOTE | 2024-10-19 16:27 | PTCARENOTE ---
Pt remains agitated, confused, delusional with brief periods of being more calm. However, he again ripped out his IV and O2 tubing and ripped them. Unable to be re-oriented. Calmer with by his bedside. HR improved to 70s-80s
--- NOTE | 2024-10-19 19:05 | PTCARENOTE ---
Pt ordered MRi by medical team. RN reviewed protocol and concerns that pt will not cooperate during MRI nor be able to tolerate and may become agitated. Pt ordered PO Ativan to be given before MRI and to remain on tele monitor. Pt remains anxious
and intermittenly combative. RN reviewed this info with oncoming shift.
[2024-10-19] MEDS: PRAVACHOL 80 MG PO (21:31)
[2024-10-19] MEDS: FLOMAX 0.4 MG PO (21:31)
[2024-10-19] MEDS: RISPERDAL 0.5 MG PO (23:25)
[2024-10-20] VITALS (16 sets, daily range): BP systolic 116–163; BP diastolic 74–103; PULSE 2–80; BMI 34.9
--- NOTE | 2024-10-20 04:47 | PTCARENOTE ---
Patient oriented to self. Pt restless and agitated at change of shift, PRN risperidone administered see OCT. B/l wrist restraints are on and hourly rounding including toileting. 1:1 assigned to the room as patient has the BiPAP. RT bedside to place
pt on the BiPAP. A-fib on tele with increased BPs, DANIA Sanchez made aware, pass onto dayshift to continue with AM medications. Call corral within reach.
[2024-10-20 06:02] LABS: Hematocrit 32.5 % (39.0-52.0); Hemoglobin 10.9 g/dL (13.0-18.0); Mean Corp Hgb Conc. 33.5 g/dL (33.0-37.0); Mean Corpuscular Hgb 32.9 pg (27.0-31.0); Mean Corpuscular Volume 98.2 fL (80.0-94.0); Mean Platelet Volume 11.4 fL (7.4-10.4); Platelet Count 82 10^3/uL (130-400); Red Blood Cell Count 3.31 10^6/uL (4.70-6.10); Red Cell Dist. Width 12.3 % (11.5-14.5); White Blood Cell Count 5.1 10^3/uL (4.8-10.8)
--- NOTE | 2024-10-20 06:35 | DOWNTIME ---
There was a [employer] Client [employer] Downtime on 10/20/2024 from 0100 to 10/20/2023 at 0235 . Downtime documentation of patient's care, including medication administrations, has been reconciled in the electronic record per guidelines. Refer to the
patient's paper chart under the miscellaneous tab to see printed paper medication records and downtime forms.
[2024-10-20] MEDS: DUONEB 3 ML INH ×4 (07:37→20:29)
[2024-10-20 08:00] LABS: Blood Urea Nitrogen 33 mg/dl (9-20); Calcium 9.1 mg/dl (8.4-10.2); Carbon Dioxide 38 mmol/L (22-30); Chloride 93 mmol/L (98-107); Estimated Creatinine Clearance 98 ml/min; Glucose 135 mg/dl (70-99); Potassium 4.4 mmol/L (3.5-5.1); Sodium 138 mmol/L (135-145); eGFR > 60.00
[2024-10-20 08:49] LABS: % Basophils 0.2 % (0-2); % Immature Granulocytes 0.4 % (0-0.5); % Lymphocytes 9.6 % (20.5-51.1); % Monocytes 4.9 % (1.7-9.3); % Neutrophils 84.9 % (42.2-75.2); Absolute Lymphocytes 0.5 10^3/uL (1.2-3.4); Absolute Monocytes 0.3 10^3/uL (0.1-0.6); Absolute Neutrophils 4.3 10^3/uL (1.4-6.5); Nucleated Red Blood Cells % 0 % (-)
--- NOTE | 2024-10-20 09:22 | W.PN.HOSP.TC ---
Addendum entered and electronically signed by Yan Mann MD 10/20/24 20:39:
Attending Addendum-
I saw and evaluated the patient. I reviewed the resident�s note and agree with findings and plan as documented in the resident�s note. Sub: was agitated overnight. now calm and pleasant but confabulating. No complaints. Denies SOB CP palps. ROS
full 10 point ROS reviewed and negative except as documented. Exam: Vitals reviewed in chart GEN-NAD heart irreg irreg lungs forced expiratory wheeze, abd soft LE no edema Neuro AAO x 1-2
Plan:
#Sepsis Secondary to Influenza A
- Completed course of Tamiflu
- Supportive care
- resolved
- transfer out of IMU
# TME
- from influenza and hypercarbia
- steroids contributing
- ct head x 2- no acute changes
- likely underlying cognitive deficit vs Wernicke/Korsakoff? start thiamine high dose and add folic acid/MVI, baseline mentation reviewed with -has been having memory impairment and visual hallucinations seeing friendly ghosts
- would benefit from Risperdal standing
- check MRI r/o CVA-unable to do due to agitation
- appreciate psych input
# Acute Hypoxemic Respiratory Failure
- wean o2 for sats 88-92%
# Pancytopenia
- viral induced and possibly AUD
- check CBC in am
# Paroxysmal Atrial Fibrillation
- rate controlled
- in/out of sinus
- cont new PO cardizem
- Continue max carvedilol
- Continue Eliquis
# Chronic HFpEF
- Echo 04/24- EF 50-55%
- cont Lasix, Aldactone, and Coreg
- Follow I/Os, daily weights, fluid restrict
# Acute COPD Exacerbation - influenza induced
- taper dexamethasone to off
- cont ATC duonebs (caution with tachycardia)
- Caution with O2 supplementation. maintain O2 sats 88-92%
- pulm on board appreciate input
#BPH
- Stable. Continue Flomax / Proscar.
#HLD- cont pravastatin
#GOUT- cont allopurinol
#H/O AUD- add thiamine folic and MVI
DVT Prophylaxis: On Eliquis
Code Status: Full-> DNI d/w POA
Time spent coordinating care, review of plan of care with resident, personally reviewed records in EMR, med rec, consults, notes, labs, radiology, d/w nursing � 54 mins
Original Note:
Today's Communication/Plan
-
Downgrade to telemetry
TT psychiatry regarding starting standing antipsychotic
DC BiPAP
Continue DEXA 2 mg
Will hold off brain MRI until patient is less agitated
Assessment / Plan
Assessment / Plan
Patient is an 84y M with PMH significant for A-Fib, HFpEF and COPD who presents to ED for evaluation of mental status change and cough and SOB
#Sepsis Secondary to Influenza A
- CXR (10/17): There is mild interstitial airspace disease at the right lung base which may be atelectasis or mild right basilar pneumonia which is unchanged when compared with the prior study. Mild cardiomegaly without associated pulmonary edema
- Completed course of Tamiflu BID
- Currently off antibiotics
- Continue supportive care with supplemental O2 -wean as tolerated
- DC BiPAP
- Wheezes heard on auscultation today-continue Decadron 2mg
- Afebrile for the past 72 hours-follow fever curve.
- Speech eval-cleared for regular diet with thin liquids-advance diet
- Will attempt to send sputum culture
# Acute on chronic altered mental status
-Exacerbated from influenza
-Head CT x 2 negative
-Talked to -patient has had hallucinations and memory problems for the past year-likely underlying cognitive deficit- denies recent heavy alcohol drinking (mentions usually half a glass of wine daily-He had not been drinking for the past 3
weeks prior to admission)
-Brain MRI: Will hold off until patient less agitated and not in restraints
-Psychiatry consulted�appreciate input�visual hallucinations can be associated with Lewy Body dementia-will TT regarding starting standing antipsychotics
-Restraints as needed
-Can be downgraded to telemetry today
# Acute hypercapnic respiratory failure
-Resolved
-Maintain O2 sat between 88-92%
-Supplemental O2 as needed (currently on 4L nasal cannula)
# Pancytopenia
- Stable
- Most likely viral induced-cannot rule out pancytopenia due to chronic alcoholism (based on [facility] records, he does have a history of alcohol use disorder)
- Continue to monitor CBC
# Paroxysmal Atrial Fibrillation
- Monitor on telemetry
- Heart rate between 100-130 today-Lopressor as needed minimal improvement
- Will transition from Cardizem drip to oral diltiazem 120 today
- Anticipate improvement with management of sepsis
- Continue carvedilol
- Continue Eliquis
# Chronic HFpEF
- Echo 04/24- EF 50-55%
- restarted Lasix and Aldactone
- Weight is 2 kg less than yesterday
- Hyperkalemia resolved
- Follow I/Os, daily weights
#COPD
- History of ROCIO
- Patient noncompliant with CPAP at home
- Albuterol inh and DuoNeb PRN.
#BPH
- Stable. Continue Flomax / Proscar.
- Bladder scan protocol.
#HLD- cont pravastatin
#GOUT- cont allopurinol
DVT Prophylaxis: Eliquis
Code Status: Limited DNR
Updated
Anticipated Discharge: 24 - 48 hours
Subjective/Interval History
-
Date of Service: October 20, 2024
Patient is confused. Not oriented to place or person.
Objective Data
-
Labs:
Laboratory Results
10/20/24 10/20/24
05:27 06:47
WBC 5.1
Hgb 10.9 L
Hct 32.5 L
Plt Count 82 L
Sodium Cancelled 138
Potassium Cancelled 4.4
Chloride Cancelled 93 L
Carbon Dioxide Cancelled 38 H
BUN Cancelled 33 H
Creatinine Cancelled 0.7
Glucose Cancelled 135 H
Calcium Cancelled 9.1
Vital Signs:
Vital Signs
Temp Pulse Resp BP Pulse Ox
97.5 F 88 18 161/100 94
10/20/24 07:17 10/20/24 07:39 10/20/24 07:39 10/20/24 06:00 10/20/24 07:39
I&O
10/19/24 10/20/24 10/21/24
06:59 06:59 06:59
Intake Total 240 / 240 240 / 240
Output Total 525 / 525 1450 / 1450
Balance -285 / -285 -1210 / -1210
Review of Systems
-
Unable to obtain full review of systems at this time due to: Acuity
Physical Exam
-
General: Well Developed and No Apparent Distress
HEENT: Normocephalic, Atraumatic and Moist Mucous Membranes
Respiratory: Wheezes (Bilateral); Negative Rhonchi or Crackles
Cardiac: S1/S2, Irregular Rhythm and Other (Not tachycardic, rate controlled)
GI: Soft, Nontender, Normal Bowel Sounds and Distended
Musculoskeletal: No Clubbing, No Cyanosis and No Edema
Skin: Warm and Dry
Neuro: Awake and Other (Not oriented to place and person)
Psych: Confused and Agitated; Negative Intact Judgement/Insight
--- NOTE | 2024-10-20 09:39 | PTOTSP ---
Still awaiting new orders for PT and OT after transferring to higher level of care, when pt is calm and able to participate in therapy activities.
--- NOTE | 2024-10-20 10:25 | W.PN.PUL.V3 ---
Today's Communication / Plan
-
wean oxygen.
BiPAP.
Diuresis as tolerated.
Nebulizers..
Discontinue steroids
Psychiatry following
Assessment
-
84-year-old former smoking obese male with a history of COPD, atrial fibrillation, heart failure preserved EF, hypertension, hyperlipidemia, ROCIO who presented with lethargy and shortness of breath with progressed requiring noninvasive ventilation
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
Respiratory failure requiring noninvasive ventilation to prevent intubation
ABG prior to BiPAP 10/15/2024--79/123/7.22
ABG on BiPAP 10/16/2024--76/109/7.23
Sepsis
Influenza A
Chronic heart failure reduced EF
COPD with mild acute exacerbation
Toxic metabolic encephalopathy
Mild macrocytic anemia-hemoglobin 11.1
Thrombocytopenia-platelet 89
Mild hyperkalemia
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
Conditions present prior to admission:
Hypertension.
Hyperlipidemia.
COPD-Gold stage II
Chronic hypercapnia
Former smoker.
Former alcohol abuse
Obesity.
Obstructive sleep apnea.
Permanent atrial fibrillation-on anticoagulation
History of SVT ablation
History of heart failure preserved EF
Mild aortic stenosis
Moderate mitral regurgitation
Gout.
Degenerative disc disease.
BPH
History of GI bleed
Internal hemorrhoids
Chronic constipation
Septoplasty. Spinal fusion. Left ankle fusion 2001. Appendectomy/ruptured appendix 2000. ICD.
Plan
Respiratory decompensation with metabolic encephalopathy-stroke alert was called-CT head negative, neurology involved
Transferred to ICU in critical condition-subsequently downgraded currently IMU-could further be downgraded to telemetry
Supplemental oxygen as needed-currently on 2 L - 96% saturation
Noninvasive ventilation-20/6 cm-tolerating
Follow ABG or VBG if needed
Nebulizers continue
Steroids initiated 10/17/2024 with marginal respiratory status and expiratory rhonchi/wheezing-no change for now-reduced with confusion and agitation.-We'll discontinue 10/20/24 with ongoing confusion
Chest x-ray 10/17/2024-mild interstitial airspace disease at the right lung base could be pneumonia and mild cardiomegaly without overt CHF
Cultures reviewed
Blood cultures negative
Urine culture negative
Unable to produce sputum
Influenza a positive
Tamiflu
Doxycycline continues
Confusion and delirium. Continue
Psychiatry involved.
Perspired all
Will discontinue steroids
Atrial fibrillation rate control
Eliquis continues
Monitor for fluid overload
Diuresis continues as tolerated--285 mL / 24-hour
Monitor renal function, electrolytes, intake/output, lower extremity edema and weight
Replace electrolytes as needed
Neurology evaluation noted-suspected toxic metabolic encephalopathy, doubt stroke
Stroke alert was called
CT head x 2 summarized below.
Confusion/delirium continues
Follow hemoglobin-currently 10.9 and stable reviewed with nursing
Transfuse as needed
Monitor renal function
Replace electrolytes as needed
DVT prophylaxis-on Eliquis
Nutrition with aspiration precautions
Bedside range of motion and eventual physical therapy
Last saw Dr. Bolton 07/30/[id number] as an outpatient-repeat sleep study and potential CPAP or BiPAP use
Reviewed with nursing
Diagnostic data:
Chest x-ray 10/15/2024-suboptimal inspiration, mild interstitial airspace disease right lung-atelectasis or pneumonia
CT head 10/15/2024-no acute intracranial abnormalities, moderate diffuse cortical atrophy
CT head 10/16/2024-no acute intracranial abnormalities
.
Echocardiogram-03/29/19: EF 30-35%. Mild mitral regurgitation. PA pressures 31-33 mmHg. Compared to 2018, EF largely unchanged. No pericardial effusion.�������
Cardiac catheterization-02/24/18: Luminal irregularities. Severe LV dysfunction 30% EF . LVEDP 30.�������
Echocardiogram-03/02/18: Severe global hypokinesis EF 20%. Moderate mitral regurgitation. Dilated and hypokinetic right heart. Moderate pulmonary hypertension 49-54 mm systolic.�������.�������
Echocardiogram-06/24/22: EF 55-60%. Mild aortic stenosis. Estimated PA pressures 56-61 mmHg.
Echocardiogram 04/02/2024-EF 50-55%, moderate mitral regurgitation, mild aortic stenosis, PA systolic 55-60����
ABG-07/01/22: 7.48-PCO2 61-PO2 100-bicarbonate 45. Mixed respiratory acidosis and metabolic alkalosis.
Spirometry-07/30/22: Spirometry demonstrated probable mixed obstructive and restrictive lung disease. The forced vital capacity was 2.05 L or 55% of predicted.
Subjective Data
-
Date of Service:
Date of Service: October 20, 2024
Chief Complaint: Pulmonary Follow Up and Dyspnea Follow Up
Subjective:
Confused, . No complaints of shortness of breath, chest congestion, chest pain or abdominal pain
Review of Systems
General: Other ( per HPI)
Objective Data
Data Reviewed
Vital Signs / I&O:
Vital Signs
Temp Pulse Resp BP Pulse Ox
97.5 F 88 18 161/100 94
10/20/24 07:17 10/20/24 07:39 10/20/24 07:39 10/20/24 06:00 10/20/24 07:39
Intake and Output
10/19/24 10/20/24 10/21/24
06:59 06:59 06:59
Intake Total 240 / 240 240 / 240
Output Total 525 / 525 1450 / 1450
Balance -285 / -285 -1210 / -1210
SaO2: 94
Nasal Cannula flow liters per minute: 2
Physical Exam
General: Respiratory Distress (Mild) and Comfortable
HEENT: Normocephalic, Anicteric and Moist Mucous Membranes
Cardiovascular: Regular Rhythm, Murmur and Peripheral Edema
Respiratory: Clear (Diminished breath sounds and prolonged expiratory time), Crackles (Basilar), Rhonchi ( few expiratory), Accessory Resp Muscle Use (Mild) and Stridor (n)
GI: Soft, Distended and Non Tender
Neurology: Awake, Alert and No Motor Deficits
Skin: Warm, Good Color, Cyanosis (n) and Jaundice (n)
Labs/Micro/Reports
Lab Data
10/20/24 05:27
10/20/24 06:47
Microbiology
10/15/24 23:27 Blood/Venous Blood Culture - Preliminary
No Growth in 4 days- Final report to follow
[2024-10-20] MEDS: VITAMIN D3 (cholecalciferol) 50 MCG PO (10:28)
[2024-10-20] MEDS: COREG 25 MG PO ×2 (10:29→19:58)
[2024-10-20] MEDS: PROSCAR 5 MG PO (10:29)
[2024-10-20] MEDS: ZYLOPRIM 100 MG PO (10:29)
[2024-10-20] MEDS: CARDIZEM CD 120 MG PO (10:29)
[2024-10-20] MEDS: ELIQUIS 5 MG PO ×2 (10:29→19:57)
[2024-10-20] MEDS: LASIX 40 MG PO (10:29)
[2024-10-20] MEDS: FLUSH (NSS) 1 FLUSH IV (10:30)
[2024-10-20] MEDS: DECADRON 2 MG IV (10:30)
--- NOTE | 2024-10-20 14:59 | CM ---
Patient with Dx Sepsis Secondary to Influenza A, TME. MRI Brain ordered. O2 2L. BiPAP. Receiving IV Decadron, Risperdal prn. Seen by Psych. Per nursing; soft restraints, 1:1 observation at night due to BiPAP. PT/OT on hold.
Received phone call from patient's Jyoti; provided update CM not actively working on d/c plans due to patient's condition, and waiting until his mentation improves and he is able to work with PT/OT. asking for update from MD ---> message
relayed to Dr Mann.
Plan continue to follow patient's mentation and rehab needs.
Plan TBD.
--- NOTE | 2024-10-20 17:16 | W.PN.UPDATE ---
Update Note
Progress Note Update
Pt seen at bedside, present in chair by bedside as well. Pt in soft restraints, remains disoriented & confused. Unable to participate in meaningful interview due to disorientation & paranoia, pt becomes easily suspicious and angry, needs
frequent redirection throughout interview.
As per chart agitation with paranoia persists, pt at times not redirectable and can pose risk to himself/others.
Started risperidone 0.5mg BID + 0.5mg TIDPRN acute agitation, will re-asses tomorrow
[2024-10-20] MEDS: RISPERDAL M-TAB (ORALLY DISINTEGRATING) 0.5 MG PO (19:58)
[2024-10-20] MEDS: FLOMAX 0.4 MG PO (21:00)
[2024-10-20] MEDS: PRAVACHOL 80 MG PO (21:00)
--- NOTE | 2024-10-20 21:45 | PTCARENOTE ---
Patient transferred from IMU at 2145 via bed. Patient pivoted to bed. He is on 2L of oxygen. Bilateral soft wrist restraints in place. Patient alert and oriented to self. Talking with staff. Denied pain. Bed alarm applied. Oriented to room. Call
corral in place. 1:1 due to arrive at 2300.
[2024-10-20] MEDS: THIAMINE INJECTION IV (21:53)
--- NOTE | 2024-10-20 21:59 | PTCARENOTE ---
Patient transported to [facility] via bed. All pts belongings collected and sent with the patient. Report called to receiving RN Tarun. Pt stood and pivoted to the bed with assist x2.
[2024-10-20] MEDS: THIAMINE INJECTION 200 MG IV (22:53)
--- NOTE | 2024-10-20 23:02 | PTCARENOTE ---
Patient restraints removed and bipap being placed. 1:1 in room with patient.
[2024-10-21] VITALS (9 sets, daily range): BP systolic 134–167; BP diastolic 68–94; PULSE 2–76; BMI 34.2
[2024-10-21] MEDS: DUONEB 3 ML INH ×2 (07:40→11:07)
[2024-10-21] MEDS: ELIQUIS 5 MG PO ×2 (07:48→21:25)
[2024-10-21] MEDS: CARDIZEM CD 120 MG PO (07:48)
[2024-10-21] MEDS: THERAGRAN 1 TABLET PO (07:48)
[2024-10-21] MEDS: RISPERDAL M-TAB (ORALLY DISINTEGRATING) 0.5 MG PO (07:48)
[2024-10-21] MEDS: THIAMINE INJECTION 200 MG IV ×3 (07:49→21:27)
[2024-10-21] MEDS: ZYLOPRIM 100 MG PO (07:49)
[2024-10-21] MEDS: COREG 25 MG PO ×2 (07:49→21:25)
[2024-10-21] MEDS: VITAMIN D3 (cholecalciferol) 50 MCG PO (07:49)
[2024-10-21] MEDS: ALDACTONE 25 MG PO (07:49)
[2024-10-21] MEDS: LASIX 40 MG PO (07:50)
[2024-10-21] MEDS: PROSCAR 5 MG PO (07:50)
[2024-10-21] MEDS: FOLVITE 1 MG PO (07:50)
[2024-10-21 07:53] LABS: % Basophils 0.2 % (0-2); % Immature Granulocytes 0.6 % (0-0.5); % Lymphocytes 9.2 % (20.5-51.1); % Monocytes 8.3 % (1.7-9.3); % Neutrophils 81.7 % (42.2-75.2); Absolute Lymphocytes 0.6 10^3/uL (1.2-3.4); Absolute Monocytes 0.5 10^3/uL (0.1-0.6); Absolute Neutrophils 5.3 10^3/uL (1.4-6.5); Hematocrit 36.5 % (39.0-52.0); Hemoglobin 12.1 g/dL (13.0-18.0); Mean Corp Hgb Conc. 33.2 g/dL (33.0-37.0); Mean Corpuscular Hgb 32.7 pg (27.0-31.0); Mean Corpuscular Volume 98.6 fL (80.0-94.0); Mean Platelet Volume 10.6 fL (7.4-10.4); Nucleated Red Blood Cells % 0 % (-); Platelet Count 120 10^3/uL (130-400); Red Cell Dist. Width 12.4 % (11.5-14.5); White Blood Cell Count 6.5 10^3/uL (4.8-10.8)
[2024-10-21 08:15] LABS: Blood Urea Nitrogen 32 mg/dl (9-20); Calcium 9.2 mg/dl (8.4-10.2); Chloride 89 mmol/L (98-107); Estimated Creatinine Clearance 86 ml/min; Glucose 105 mg/dl (70-99); Potassium 4.1 mmol/L (3.5-5.1); Sodium 138 mmol/L (135-145); eGFR > 60.00
[2024-10-21 08:33] LABS: Carbon Dioxide 38 mmol/L (22-30)
--- NOTE | 2024-10-21 08:58 | W.PN.HOSP.TC ---
Addendum entered and electronically signed by Yan Mann MD 10/21/24 22:24:
Attending Addendum-
I saw and evaluated the patient. I reviewed the resident�s note and agree with findings and plan as documented in the resident�s note. Sub: patient seen with and daughter. calm and pleasant. Feels weak. Denies SOB CP palps. ROS full 10 point
ROS reviewed and negative except as documented. Exam: Vitals reviewed in chart GEN-NAD heart irreg irreg lungs CTA B/L, abd soft LE no edema Neuro AAO x 3 off restraints
Plan:
#Sepsis Secondary to Influenza A
- Completed course of Tamiflu
- Supportive care
- resolved
# TME/Agitation
- DC 1:1/ DC restraints
- from influenza and hypercarbia
- back to baseline mentation
- steroids contributing-DC
- likely underlying cognitive deficit vs Wernicke/Korsakoff? cont thiamine high dose and add folic acid/MVI
- cont new Risperdal standing
- MRI 10/21-No acute intracranial abnormality noted
- appreciate psych input
# Acute Hypoxemic Respiratory Failure
- wean o2 for sats 88-92%
- bipap q hs per pulm
# Pancytopenia
- viral induced and possibly AUD
- resolved
- trend CBC
# Paroxysmal Atrial Fibrillation
- rate controlled
- in/out of sinus
- cont new PO Cardizem
- Continue max carvedilol
- Continue Eliquis
# Chronic HFpEF
- Echo 04/24- EF 50-55%
- cont Lasix, Aldactone, and Coreg
- Follow I/Os, daily weights, fluid restrict
# Acute COPD Exacerbation - influenza induced
- resolved
- DC dexamethasone
- cont ATC duonebs (caution with tachycardia)
- Caution with O2 supplementation. maintain O2 sats 88-92%
- pulm on board appreciate input
#BPH
- Stable. Continue Flomax / Proscar.
#HLD- cont pravastatin
#GOUT- cont allopurinol
#H/O AUD- cont thiamine folic and MVI
DVT Prophylaxis: On Eliquis
Code Status: Full-> DNI -> DNR
Dispo- DC to SNF in am
ACP
Patient consented to discuss, was with /POA and daughter,, time spent explanation of advance directives, changes in health status, patient�s health care wishes if the patient becomes unable to make health decisions, goals of care, code status,
and prognosis 'i didnt know thats what DNI meant, thanks for explaining'- 16 minutes
Time spent coordinating care, review of plan of care with resident, personally reviewed previous records in EMR, med rec, labs, radiology, d/w nursing, family total time documented is exclusive of any additional time listed that was spent in advance
care planning discussion -� 53 minutes
Original Note:
Today's Communication/Plan
-
D/C dexa
Brain MRI
Does not require 1:1 or restraints anymore
PT OT
Potential discharge tomorrow- CM working on dispo placement
Assessment / Plan
Assessment / Plan
Patient is an 84y M with PMH significant for A-Fib, HFpEF and COPD who presents to ED for evaluation of mental status change and cough and SOB.
CXR (10/17): There is mild interstitial airspace disease at the right lung base which may be atelectasis or mild right basilar pneumonia which is unchanged when compared with the prior study. Mild cardiomegaly without associated pulmonary edema
#Sepsis POA Secondary to Influenza A
- Resolved
- Completed course of Tamiflu BID
- Currently off antibiotics-remains afebrile
- BiPAP DC'ed- weaned off O2-currently saturating well on RA
- No wheezes heard on auscultation today-Decadron discontinued
- Afebrile for the past 72 hours-follow fever curve.
- Speech eval-cleared for regular diet with thin liquids-advance diet
- B/C and U/C negative
# Acute on chronic altered mental status
-Significantly improved this morning-near baseline mentation
-Talked to -patient has had hallucinations and memory problems for the past year-he likely has underlying cognitive deficit- denies recent heavy alcohol drinking (mentions usually half a glass of wine daily-he had not been drinking for the
past 3 weeks prior to admission)
-Likely exacerbated by recent Influenza
-Head CT x 2 negative
-Psychiatry consulted�appreciate input�visual hallucinations can be associated with Lewy Body dementia- started standing antipsychotics
-Started high dose Thiamine/folic acid with suspicion of Wernicke/Korsakoff- seems to have helped with improvement of mental status
-No longer needs restraints
-Currently not on 1:1
-Downgraded to telemetry on 10/20
-Brain MRI: Axial FLAIR sequence demonstrates mild hyperintensity within the periventricular and deep subcortical white matter, likely related to chronic small vessel ischemic changes.No acute intracranial abnormality noted.
-PT OT and prelim dispo planning
# Acute hypercapnic respiratory failure
-Resolved
-Maintain O2 sat> 88%
# Pancytopenia
- Stable
- Most likely viral induced-cannot rule out pancytopenia due to chronic alcoholism (based on [facility] records, he does have a history of alcohol use disorder)
- Continue to monitor CBC
# Paroxysmal Atrial Fibrillation
- Monitor on telemetry
- Heart rate currently well-controlled
- Currently on oral diltiazem 120
- Anticipate improvement with management of underlying infection
- Continue carvedilol
- Continue Eliquis
# Chronic HFpEF
- Echo 04/24- EF 50-55%
- restarted Lasix and Aldactone
- Weight is 3 kg down from yesterday
- Hyperkalemia resolved
- Follow I/Os, daily weights
#COPD
- History of ROCIO
- Patient noncompliant with CPAP at home
#BPH
- Stable. continue Flomax / Proscar.
- Bladder scan protocol as needed
#HLD- cont pravastatin
#GOUT- cont allopurinol
DVT Prophylaxis: Eliquis
Code Status: Limited DNR
Anticipated Discharge: 24 - 48 hours
Subjective/Interval History
-
Date of Service: October 21, 2024
Patient states he is not happy since he is not at home and doesn't like his hospital room. Mentions he remembers me but doesn't know what exactly I do for him. Asks questions about what got him in the hospital and who he got the flu from.
Objective Data
-
Labs:
Laboratory Results
10/21/24
07:13
WBC 6.5
Hgb 12.1 L
Hct 36.5 L
Plt Count 120 L D
Sodium 138
Potassium 4.1
Chloride 89 L
Carbon Dioxide 38 H
BUN 32 H
Creatinine 0.8
Glucose 105 H
Calcium 9.2
Vital Signs:
Vital Signs
Temp Pulse Resp BP Pulse Ox
97.9 F 60 22 151/94 93
10/21/24 03:28 10/21/24 07:45 10/21/24 07:45 10/21/24 03:28 10/21/24 07:45
I&O
10/20/24 10/21/24 10/22/24
06:59 06:59 06:59
Intake Total 240 / 240 1165 / 1165
Output Total 1450 / 1450 1490 / 1490
Balance -1210 / -1210 -325 / -325
Review of Systems
-
History Source: Patient
All other systems: Reviewed and negative
Physical Exam
-
General: Well Developed, Well Nourished and No Apparent Distress
HEENT: Normocephalic, Atraumatic and Moist Mucous Membranes
Respiratory: Clear to Auscultation, Non Labored Respirations and Other (saturating well on RA); Negative Wheezes or Crackles
Cardiac: S1/S2 and Irregular Rhythm; Negative Tachycardic
GI: Soft, Nontender, Normal Bowel Sounds and Distended
Musculoskeletal: No Clubbing, No Cyanosis and No Edema
Skin: Warm and Dry
Neuro: Awake, Alert, Oriented and AO x 3; Negative Tremors or Slurred Speech
Psych: Calm
--- NOTE | 2024-10-21 09:13 | W.PN.PUL3 ---
Today's Communication / Plan
-
BiPAP with sleep
Check blood gas tomorrow AM to assure pH and pCO2 remain stable
1:1 in room; psych recs appreciated
DuoNebs
Diuresis as tolerated
Discontinued steroids
Outpatient follow up with Dr. Bolton
Pulmonary service will continue to briefly follow along
Assessment
-
84-year-old former smoking obese male with a history of COPD, atrial fibrillation, heart failure preserved EF, hypertension, hyperlipidemia, ROCIO who presented with lethargy and shortness of breath with progressed requiring noninvasive ventilation
and transferred to ICU-choir accompanist consulted for respiratory failure/influenza/critical care management 10/16/2024.
Acute hypercapnic respiratory failure requiring noninvasive ventilation to prevent intubation
ABG prior to BiPAP 10/15/2024--7./79/123
ABG on BiPAP 10/16/2024-- 7./76/109
Sepsis
Influenza A
Chronic heart failure reduced EF
COPD with mild acute exacerbation
Toxic metabolic encephalopathy - improving
Anemia
Thrombocytopenia- improving
Hyperkalemia - resolved
Metabolic encephalopathy-question component of steroid psychosis - improving
Conditions present prior to admission:
Hypertension.
Hyperlipidemia.
COPD-Gold stage II
Chronic hypercapnia
Former smoker.
Former alcohol abuse
Obesity.
Obstructive sleep apnea.
Permanent atrial fibrillation-on anticoagulation
History of SVT ablation
History of heart failure preserved EF
Mild aortic stenosis
Moderate mitral regurgitation
Gout.
Degenerative disc disease.
BPH
History of GI bleed
Internal hemorrhoids
Chronic constipation
Septoplasty. Spinal fusion. Left ankle fusion 2001. Appendectomy/ruptured appendix 2000. ICD.
Plan
Respiratory decompensation with metabolic encephalopathy-stroke alert was called-CT head negative, neurology involved
Transferred to ICU in critical condition-subsequently downgraded to IMU- now being managed in telemetry
Supplemental oxygen as needed-currently on room air breathing comfortably and saturating 94%
Check ambulatory pulse oximetry prior to discharge
Continue BiPAP with sleep and assure that he is set up for this upon discharge --> consult case management
Check blood gas tomorrow to asssure pH and pCO2 are stable
DuoNeb QID
Steroids initiated 10/17/2024 with marginal respiratory status and expiratory rhonchi/wheezing-reduced with confusion and agitation.- Discontinued 10/20/24 with ongoing confusion
Chest x-ray 10/17/2024-mild interstitial airspace disease at the right lung base could be pneumonia and mild cardiomegaly without overt CHF
Cultures reviewed
Blood cultures from 10/15/2024 show NGTD
Urine culture negative
Unable to produce sputum
Influenza a positive
s/p Tamiflu 10/13-10/18/2024
Doxycycline given on 10/18; rocephin given on 10/16
Confusion and delirium --> improving, but still with 1:1 in room
Psychiatry involved.
Discontinued steroids
Atrial fibrillation rate control --> currently in NSR and on CCB + coreg
Continue Eliquis
Monitor for fluid overload
Continue PO lasix 40mg daily
Monitor renal function, electrolytes, intake/output, lower extremity edema and weight
Replace electrolytes as needed
Neurology evaluation noted-suspected toxic metabolic encephalopathy, doubt stroke
Stroke alert was called
CT head x 2 summarized below (negative on 10/15 + 10/16/2024)
Confusion/delirium continues albeit improved
Follow hemoglobin
Transfuse as needed to keep Hb >7
Monitor renal function
Replace electrolytes as needed
DVT prophylaxis-on Eliquis
Nutrition with aspiration precautions
Bedside range of motion and eventual physical therapy
Last saw Dr. Bolton 07/30/[id number] as an outpatient-repeat sleep study and potential CPAP or BiPAP use
Reviewed with nursing
Diagnostic data:
Chest x-ray 10/15/2024-suboptimal inspiration, mild interstitial airspace disease right lung-atelectasis or pneumonia
CT head 10/15/2024-no acute intracranial abnormalities, moderate diffuse cortical atrophy
CT head 10/16/2024-no acute intracranial abnormalities
.
Echocardiogram-03/29/19: EF 30-35%. Mild mitral regurgitation. PA pressures 31-33 mmHg. Compared to 2018, EF largely unchanged. No pericardial effusion.�������
Cardiac catheterization-02/24/18: Luminal irregularities. Severe LV dysfunction 30% EF . LVEDP 30.�������
Echocardiogram-03/02/18: Severe global hypokinesis EF 20%. Moderate mitral regurgitation. Dilated and hypokinetic right heart. Moderate pulmonary hypertension 49-54 mm systolic.�������.�������
Echocardiogram-06/24/22: EF 55-60%. Mild aortic stenosis. Estimated PA pressures 56-61 mmHg.
Echocardiogram 04/02/2024-EF 50-55%, moderate mitral regurgitation, mild aortic stenosis, PA systolic 55-60����
ABG-07/01/22: 7.48-PCO2 61-PO2 100-bicarbonate 45. Mixed respiratory acidosis and metabolic alkalosis.
Spirometry-07/30/22: Spirometry demonstrated probable mixed obstructive and restrictive lung disease. The forced vital capacity was 2.05 L or 55% of predicted.
Total time spent today was 37 minutes for this encounter. Time includes reviewing laboratory test/imaging results, reviewing pertinent medical records, obtaining and reviewing medical history, performing an appropriate exam, ordering medications,
tests and procedures. Time also includes documentation of this encounter, coordinating patient care and communicating with other healthcare professionals. Total time does not include separately billed tests performed on this date of service.
Subjective Data
-
Date of Service:
Date of Service: October 21, 2024
Chief Complaint: Pulmonary Follow Up and Dyspnea Follow Up
Subjective:
Patient seen and evaluated this morning. Sitting in chair no acute distress, denies shortness of breath and breathing comfortably on room air. Patient's , Jyoti, at bedside and all questions were answered. Pt wore his BiPAP overnight but the
is concerned that he won't wear it once he is back home. Patient currently denies chest pain, VILLEGAS, nausea, fevers or chills.
Review of Systems
General: Other (Negative unless mentioned above)
Objective Data
Data Reviewed
Vital Signs / I&O / Oxygen:
Vital Signs
Temp Pulse Resp BP Pulse Ox
97.9 F 60 22 151/94 93
10/21/24 03:28 10/21/24 07:45 10/21/24 07:45 10/21/24 03:28 10/21/24 07:45
Intake and Output
10/20/24 10/21/24 10/22/24
06:59 06:59 06:59
Intake Total 240 / 240 1165 / 1165
Output Total 1450 / 1450 1490 / 1490
Balance -1210 / -1210 -325 / -325
SaO2 93
Nasal Cannula flow liters per 2
minute
Physical Exam
General: Respiratory Distress (negative), Comfortable, Chills (negative) and Sweats (negative)
HEENT: Normocephalic, Anicteric and Moist Mucous Membranes
Cardiovascular: S1-S2 and Peripheral Edema (negative)
Respiratory: Wheeze (negative), Crackles (Basilar), Rhonchi ( few expiratory), Accessory Resp Muscle Use (negative) and Stridor (n)
GI: Soft, Distended (Abdominal obesity), Non Tender and Normal Bowel Sounds
Neurology: Awake, Alert, Tremors (negative) and Other (Confusion at times)
Skin: Warm, Dry, Cyanosis (n) and Jaundice (n)
Labs/Micro/Reports
Lab Data
10/21/24 07:13
10/21/24 07:13
Microbiology
10/15/24 23:27 Blood/Venous Blood Culture - Final
No Growth - Final Report
--- NOTE | 2024-10-21 10:06 | CM ---
Chart reviewed and patient is on 1:1, restraints off, patient out of bed in chair, patient, will need new PT/OT orders.
Plan; To follow with patient progress and assist with discharge planning needs, patient will need to be off 1:1, if plan is skilled placement.
[2024-10-21] MEDS: ATIVAN 1 MG PO ×2 (11:42→17:46)
[2024-10-21] MEDS: DUONEB INH ×2 (15:25→19:49)
--- NOTE | 2024-10-21 16:45 | W.PN.UPDATE ---
Update Note
Progress Note Update
Pt seen at bedside, sleeping in chair - did not disturb as pt has only started calming consistently today. present - she reported that he is much better today, is out of restraints, was able to do Wordle a bit with this AM. Still confused
and not himself, but improving. No acute agitation reported since yesterday.
Continue risperidone 0.5mg BID + 0.5mg TIDPRN acute agitation.
--- NOTE | 2024-10-21 17:39 | PTCARENOTE ---
Patient off one to one for possible d/c tomorrow. Needs frequent redirection , stands unassisted at times . Bed and Chair alarm intact. Frequent checks maintained. Patient upset that his left , expressing desire to 'leave here and follow
her ' . Distraction with TV and newspaper utilized.
[2024-10-21] MEDS: RISPERDAL M-TAB (ORALLY DISINTEGRATING) PO ×2 (19:25→21:26)
[2024-10-21] MEDS: ELIQUIS PO (19:25)
[2024-10-21] MEDS: COREG PO (19:32)
[2024-10-21] MEDS: LOPRESSOR 5 MG IV (19:33)
[2024-10-21] MEDS: ATIVAN 0.5 MG IV (20:03)
[2024-10-21] MEDS: NSS (PRESERVATIVE FREE) 0.25 ML IV (20:04)
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
[2024-10-21] MEDS: PRAVACHOL 80 MG PO (21:25)
[2024-10-21] MEDS: FLOMAX 0.4 MG PO (21:25)
[2024-10-22] VITALS (10 sets, daily range): BP systolic 106–162; BP diastolic 52–81; PULSE 2–90; O2SAT 98; BMI 34.3
[2024-10-22 07:40] LABS: Venous Blood Gas B.E. 14.8 mmol/L (-4 to +4); Venous Blood Gas HCO3 43.2 mmol/L (22-27); Venous Blood Gas O2 Sat % 88.2 %; Venous Blood Gas pH 7.38 (7.32-7.43); Venous Blood Gas pO2 56 mmHg (30-50)
[2024-10-22 07:42] LABS: Venous Blood Gas pCO2 73 mmHg (35-48)
[2024-10-22 07:50] LABS: Hematocrit 36.7 % (39.0-52.0); Hemoglobin 11.9 g/dL (13.0-18.0); Mean Corp Hgb Conc. 32.4 g/dL (33.0-37.0); Mean Corpuscular Hgb 32.7 pg (27.0-31.0); Mean Corpuscular Volume 100.8 fL (80.0-94.0); Red Blood Cell Count 3.64 10^6/uL (4.70-6.10); Red Cell Dist. Width 12.6 % (11.5-14.5)
[2024-10-22] MEDS: DUONEB 3 ML INH ×4 (07:51→20:57)
[2024-10-22 08:23] LABS: Blood Urea Nitrogen 33 mg/dl (9-20); Calcium 8.9 mg/dl (8.4-10.2); Chloride 90 mmol/L (98-107); Estimated Creatinine Clearance 68 ml/min; Glucose 88 mg/dl (70-99); Potassium 3.7 mmol/L (3.5-5.1); Sodium 139 mmol/L (135-145); eGFR > 60.00
--- NOTE | 2024-10-22 08:24 | W.PN.HOSP.TC ---
Addendum entered and electronically signed by Yan Mann MD 10/22/24 22:13:
Attending Addendum-
I saw and evaluated the patient. I reviewed the resident�s note and agree with findings and plan as documented in the resident�s note. Sub: patient with episode of agitation last PM had to be given risperdal and 1:1 sitter reinitiated. Patient
somnolent this am but easily arousable. 'Im fine i want to go home and take care of my and kids' No recollection of last nights events. Denies SOB CP palps. ROS full 10 point ROS reviewed and negative except as documented. Exam: Vitals
reviewed in chart GEN-NAD heart irreg irreg lungs CTA B/L, abd soft LE no edema Neuro AAO x 2
Plan:
#Sepsis Secondary to Influenza A
- Completed course of Tamiflu
- Supportive care
- resolved
# TME/Agitation
- restart 1:1 and restraints
- from influenza, etoh abuse, and hypercarbia
- likely underlying cognitive deficit vs Wernicke/Korsakoff? cont thiamine high dose and folic acid/MVI
- cont new Risperdal standing and prn, change timing of evening dose to earlier
- MRI 10/21-No acute intracranial abnormality noted
- appreciate psych input
# Acute on Chronic Hypercarbic Respiratory Failure
- wean o2 for sats 88-92%
- will need bipap q hs, increase settings from 12->15/5-CM aware
# Paroxysmal Atrial Fibrillation
- rate controlled
- in/out of sinus
- cont new PO Cardizem
- Continue max carvedilol
- Continue Eliquis
# Chronic HFpEF
- Echo 04/24- EF 50-55%
- cont Lasix, Aldactone, and Coreg
- Follow I/Os, daily weights, fluid restrict
# Acute COPD Exacerbation - influenza induced
- resolved
- cont ATC duonebs
- Caution with O2 supplementation. maintain O2 sats 88-92%
- pulm on board appreciate input
#BPH
- Stable. Continue Flomax / Proscar.
#HLD- cont pravastatin
#GOUT- cont allopurinol
#H/O AUD- cont thiamine folic and MVI
DVT Prophylaxis: On Eliquis
Code Status: Full-> DNI -> DNR
Dispo- initially POA agreeable to SNF now wavering
Time spent coordinating care, review of plan of care with resident, personally reviewed records in EMR, med rec, consults, notes, labs, radiology, d/w nursing,CM � 52 mins
Original Note:
Today's Communication/Plan
-
Home O2 assessment
Risperdal given earlier in the afternoon to prevent agitation at night
1:1 and restraints if needed
Updated pt's Jyoti
Assessment / Plan
Assessment / Plan
Patient is an 84y M with PMH significant for A-Fib, HFpEF and COPD who presents to ED for evaluation of mental status change and cough and SOB.
#Sepsis POA Secondary to Influenza A
- Resolved
- Completed course of Tamiflu BID
- Off antibiotics-remains afebrile
- Afebrile for the past 72 hours-follow fever curve
- CXR (10/17): There is mild interstitial airspace disease at the right lung base which may be atelectasis or mild right basilar pneumonia which is unchanged when compared with the prior study. Mild cardiomegaly without associated pulmonary edema
- Repeat CXR in 4-6 weeks
#Acute hypercapnic respiratory failure
- Stable
- Required BiPAP overnight-currently saturating well on 3 lit O2
- Appreciate pulmonology-continue BiPAP with sleep and after discharge- signed off
- Home O2 assessment
- No wheezes heard on auscultation-Decadron discontinued- cont DuoNeb QID
- Speech eval-cleared for regular diet with thin liquids-advance diet
- B/C and U/C negative
# Acute on chronic altered mental status
- Likely exacerbated by recent Influenza
- Patient became agitated and violent yesterday evening after being relatively stable during daytime- Required Restraints and 1:1
- Per , patient has had hallucinations and memory problems for the past year-he likely has underlying cognitive deficit- denies recent heavy alcohol drinking (mentions usually half a glass of wine daily-he had not been drinking for the past
3 weeks prior to admission)
-Head CT x 2 negative
-Psychiatry consulted�appreciate input�visual hallucinations can be associated with Lewy Body dementia- on standing antipsychotics- will administer at an earlier time to prevent agitation in the evening
-Cont high dose Thiamine/folic acid with suspicion of Wernicke/Korsakoff
-Brain MRI: Axial FLAIR sequence demonstrates mild hyperintensity within the periventricular and deep subcortical white matter, likely related to chronic small vessel ischemic changes.No acute intracranial abnormality noted.
-PT OT
-Per CM, patient's spouse has selected home with [facility] after discharge
-Downgraded to telemetry on 10/20
# Pancytopenia
- Most likely viral induced-cannot rule out pancytopenia due to chronic alcoholism (based on [facility] records, he does have a history of alcohol use disorder)
- Continue to monitor CBC
# Paroxysmal Atrial Fibrillation
- Patient did become tachycardic late yesterday afternoon- Lopressor 5mg stat ordered and HR went back in the 80s
- Lopressor PRN if HR>100
- Cont to monitor on telemetry
- Heart rate well-controlled this morning
- Currently on oral diltiazem 120
- Continue carvedilol 25 BID
- Continue Eliquis
# Chronic HFpEF
- Echo 04/24- EF 50-55%
- Restarted Lasix and Aldactone
- Hyperkalemia resolved
- Follow I/Os, daily weights
#COPD
- History of ROCIO
- Patient noncompliant with CPAP at home
- Per pulm, recommend setting up Bipap after discharge
- Outpatient follow up with Dr. Bolton
#BPH
- Stable. continue Flomax / Proscar.
- Bladder scan protocol as needed
#HLD- cont pravastatin
#GOUT- cont allopurinol
DVT Prophylaxis: Eliquis
Code Status: DNR
Talked with pt's Jyoti for 30 mins. She is still hesitant and deciding between SNF vs [facility]
Anticipated Discharge: 24 - 48 hours
Subjective/Interval History
-
Date of Service: October 22, 2024
Patient is somnolent. Does open eyes when calling his name but cannot keep awake
Objective Data
-
Labs:
Laboratory Results
10/22/24
07:28
WBC 5.0
Hgb 11.9 L
Hct 36.7 L
Plt Count Pending
Sodium 139
Potassium 3.7
Chloride 90 L
Carbon Dioxide Pending
BUN 33 H
Creatinine 1.0
Glucose 88
Calcium 8.9
Vital Signs:
Vital Signs
Temp Pulse Resp BP Pulse Ox
97.5 F 62 18 162/81 94
10/22/24 07:30 10/22/24 07:53 10/22/24 07:53 10/22/24 07:30 10/22/24 07:53
I&O
10/21/24 10/22/24 10/23/24
06:59 06:59 06:59
Intake Total 1165 / 1165 1440 / 1440
Output Total 1490 / 1490
Balance -325 / -325 1440 / 1440
Review of Systems
-
Unable to obtain full review of systems at this time due to: Acuity (Patient is somnolent )
Physical Exam
-
HEENT: Normocephalic and Atraumatic
Respiratory: Clear to Auscultation, Non Labored Respirations and Other (saturating well on 3L O2); Negative Wheezes or Crackles
Cardiac: S1/S2 and Irregular Rhythm; Negative Tachycardic
GI: Soft, Nontender, Normal Bowel Sounds and Distended
Musculoskeletal: No Clubbing, No Cyanosis and No Edema
Skin: Warm and Dry
--- NOTE | 2024-10-22 08:30 | W.PN.PUL3 ---
Addendum entered and electronically signed by Nick Knight MD 10/25/24 09:51:
This patient is 84-year-old man with end-stage COPD. Multiple admissions to the hospital with shortness of breath and respiratory failure. His most recent pCO2 is 63 on 2 L of oxygen. Patient has to use oxygen continuously.
Has minimal effort dyspnea. Patient is very limited due to his breathing and joint pain. Due to his COPD and hypoventilation, patient have risk of worsening chronic respiratory failure. I have considered bilevel, bilevel ST and bilevel VAPS
therapy and they all have been ruled out due to patient's worsening condition. The patient now requires a unique mode of ventilation not offered unless costly options. The patient requires a device that we will not fail in the event of a power
failure and is also portable for mobility within the home when needed. Due to the patient's worsening condition, I am prescribing noninvasive ventilation therapy to decrease the chance of continued unplanned expensive medical encounters including
physician office visits, emergency/urgent care treatment and hospital admissions.
Original Note:
Today's Communication / Plan
-
BiPAP with sleep that he should be DC'd home with --> case management consult
Blood gas this AM shows stable hypercapnia
1:1 in room; psych recs appreciated
DuoNebs
Diuresis as tolerated
Discontinued steroids
Outpatient follow up with Dr. Bolton --> this will be arranged
No additional recommendations at this time. Pulmonary service will now sign off. Please reconsult if there are any additional questions/concerns, or if patient's respiratory status deteriorates.
Assessment
-
84-year-old former smoking obese male with a history of COPD, atrial fibrillation, heart failure preserved EF, hypertension, hyperlipidemia, ROCIO who presented with lethargy and shortness of breath with progressed requiring noninvasive ventilation
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
Acute hypercapnic respiratory failure requiring noninvasive ventilation to prevent intubation
ABG prior to BiPAP 10/15/2024--7./79/123
ABG on BiPAP 10/16/2024-- 7./76/109
Sepsis
Influenza A
Chronic heart failure reduced EF
COPD with mild acute exacerbation
Toxic metabolic encephalopathy - improved
Anemia
Thrombocytopenia
Hyperkalemia - resolved
Metabolic encephalopathy-question component of steroid psychosis - improving
Conditions present prior to admission:
Hypertension.
Hyperlipidemia.
COPD-Gold stage II
Chronic hypercapnia
Former smoker.
Former alcohol abuse
Obesity.
Obstructive sleep apnea.
Permanent atrial fibrillation-on anticoagulation
History of SVT ablation
History of heart failure preserved EF
Mild aortic stenosis
Moderate mitral regurgitation
Gout.
Degenerative disc disease.
BPH
History of GI bleed
Internal hemorrhoids
Chronic constipation
Septoplasty. Spinal fusion. Left ankle fusion 2001. Appendectomy/ruptured appendix 2000. ICD.
Plan
Respiratory decompensation with metabolic encephalopathy-stroke alert was called-CT head negative, neurology involved
Transferred to ICU in critical condition-subsequently downgraded to IMU- now being managed in telemetry
Supplemental oxygen as needed-currently on room air breathing comfortably and saturating 100%
Check ambulatory pulse oximetry prior to discharge
Continue BiPAP with sleep and assure that he is set up for this upon discharge --> consult case management
Blood gas this AM shows stable pH and pCO2
DuoNeb QID
Steroids initiated 10/17/2024 with marginal respiratory status and expiratory rhonchi/wheezing-reduced with confusion and agitation.- Discontinued 10/20/24 with ongoing confusion
Chest x-ray 10/17/2024-mild interstitial airspace disease at the right lung base could be pneumonia and mild cardiomegaly without overt CHF
- Repeat CXR in 4-6 weeks
Cultures reviewed
Blood cultures from 10/15/2024 show NGTD
Urine culture negative
Unable to produce sputum
Influenza A positive from 10/13/2024
s/p Tamiflu 10/13-10/18/2024
Doxycycline given on 10/18; Rocephin given on 10/16
Confusion and delirium --> improved; has 1:1 in room
Psychiatry involved.
Discontinued steroids
Atrial fibrillation rate control --> currently in NSR and on CCB + coreg
Continue Eliquis
Monitor for fluid overload
Continue PO lasix 40mg daily
Monitor renal function, electrolytes, intake/output, lower extremity edema and weight
Replace electrolytes as needed
Neurology evaluation noted-suspected toxic metabolic encephalopathy, doubt stroke
Stroke alert was called
CT head x 2 summarized below (negative on 10/15 + 10/16/2024)
Brain MRI performed on 10/21/2024 showing no acute intracranial banality
Confusion/delirium continues albeit improved
Follow hemoglobin
Transfuse as needed to keep Hb >7
Monitor renal function
Replace electrolytes as needed
DVT prophylaxis-on Eliquis
Nutrition with aspiration precautions
Bedside range of motion and eventual physical therapy
Last saw Dr. Bolton 07/30/[id number] as an outpatient-repeat sleep study and potential CPAP or BiPAP use
Reviewed with nursing
No additional recommendations at this time. Pulmonary service will now sign off. Thank you for allowing us to be involved in the care of this patient. Please reconsult if there are any additional questions/concerns, or if patient's respiratory
status deteriorates.
Diagnostic data:
Chest x-ray 10/15/2024-suboptimal inspiration, mild interstitial airspace disease right lung-atelectasis or pneumonia
CT head 10/15/2024-no acute intracranial abnormalities, moderate diffuse cortical atrophy
CT head 10/16/2024-no acute intracranial abnormalities
.
Echocardiogram-03/29/19: EF 30-35%. Mild mitral regurgitation. PA pressures 31-33 mmHg. Compared to 2018, EF largely unchanged. No pericardial effusion.�������
Cardiac catheterization-02/24/18: Luminal irregularities. Severe LV dysfunction 30% EF . LVEDP 30.�������
Echocardiogram-03/02/18: Severe global hypokinesis EF 20%. Moderate mitral regurgitation. Dilated and hypokinetic right heart. Moderate pulmonary hypertension 49-54 mm systolic.�������.�������
Echocardiogram-06/24/22: EF 55-60%. Mild aortic stenosis. Estimated PA pressures 56-61 mmHg.
Echocardiogram 04/02/2024-EF 50-55%, moderate mitral regurgitation, mild aortic stenosis, PA systolic 55-60����
ABG-07/01/22: 7.48-PCO2 61-PO2 100-bicarbonate 45. Mixed respiratory acidosis and metabolic alkalosis.
Spirometry-07/30/22: Spirometry demonstrated probable mixed obstructive and restrictive lung disease. The forced vital capacity was 2.05 L or 55% of predicted.
Total time spent today was 28 minutes for this encounter. Time includes reviewing laboratory test/imaging results, reviewing pertinent medical records, obtaining and reviewing medical history, performing an appropriate exam, ordering medications,
tests and procedures. Time also includes documentation of this encounter, coordinating patient care and communicating with other healthcare professionals. Total time does not include separately billed tests performed on this date of service.
Subjective Data
-
Date of Service:
Date of Service: October 22, 2024
Chief Complaint: Pulmonary Follow Up and Dyspnea Follow Up
Subjective:
Patient seen and evaluated this morning. He is working with physical therapy. Has some mild dizziness with walking and hypoxia but he quickly recovers. Wore BiPAP overnight on 12/5cmH2O bled with 4L/min. Currently on room air breathing
comfortably. Denies chest pain, VILLEGAS, nausea, fevers chills.
Review of Systems
General: Other (Negative unless mentioned above)
Objective Data
Data Reviewed
Vital Signs / I&O / Oxygen:
Vital Signs
Temp Pulse Resp BP Pulse Ox
97.5 F 62 18 162/81 94
10/22/24 07:30 10/22/24 07:53 10/22/24 07:53 10/22/24 07:30 10/22/24 07:53
Intake and Output
10/21/24 10/22/24 10/23/24
06:59 06:59 06:59
Intake Total 1165 / 1165 1440 / 1440
Output Total 1490 / 1490
Balance -325 / -325 1440 / 1440
SaO2 94
Nasal Cannula flow liters per 4
minute
Physical Exam
General: Respiratory Distress (negative), Comfortable, Chills (negative) and Sweats (negative)
HEENT: Normocephalic, Anicteric and Moist Mucous Membranes
Cardiovascular: S1-S2 and Peripheral Edema (negative)
Respiratory: Clear, Wheeze (negative), Crackles (negative), Rhonchi (negative), Non-Labored Respirations, Accessory Resp Muscle Use (negative), Stridor (n) and Other (Diminished breath sounds bilaterally)
GI: Soft, Distended (Abdominal obesity), Non Tender and Normal Bowel Sounds
Neurology: Awake, Alert, Tremors (negative) and Other (Confusion at times)
Skin: Warm, Dry, Cyanosis (n) and Jaundice (n)
Labs/Micro/Reports
Lab Data
10/22/24 07:28
10/22/24 07:28
Microbiology
10/15/24 23:27 Blood/Venous Blood Culture - Final
No Growth - Final Report
[2024-10-22 08:34] LABS: Carbon Dioxide 38 mmol/L (22-30)
[2024-10-22 09:23] LABS: Mean Platelet Volume 10.2 fL (7.4-10.4); Platelet Count 95 10^3/uL (130-400)
[2024-10-22] MEDS: VITAMIN D3 (cholecalciferol) 50 MCG PO (09:50)
[2024-10-22] MEDS: ZYLOPRIM 100 MG PO (09:50)
[2024-10-22] MEDS: FOLVITE 1 MG PO (09:50)
[2024-10-22] MEDS: ELIQUIS 5 MG PO ×2 (09:50→19:51)
[2024-10-22] MEDS: PROSCAR 5 MG PO (09:50)
[2024-10-22] MEDS: LASIX 40 MG PO (09:51)
[2024-10-22] MEDS: CARDIZEM CD 120 MG PO (09:51)
[2024-10-22] MEDS: COREG 25 MG PO ×2 (09:51→19:51)
[2024-10-22] MEDS: THERAGRAN 1 TABLET PO (09:51)
[2024-10-22] MEDS: ALDACTONE 25 MG PO (09:51)
[2024-10-22] MEDS: RISPERDAL M-TAB (ORALLY DISINTEGRATING) 0.5 MG PO ×2 (09:51→17:25)
[2024-10-22] MEDS: THIAMINE INJECTION 200 MG IV ×3 (09:52→21:33)
--- NOTE | 2024-10-22 11:32 | VNURNOTE ---
Addendum entered by Roula Samayoa RN 10/25/24 10:29:
Bipap Rx, clinicals faxed to Kaya at [facility].
Original Note:
Home Health Liaison spoke with patient's spouse Jyoti to discuss [facility] nurse/therapy, visits, schedule and homebound status. She is still determining if she will be able to care for patient at home. She understands that visits at home will be 2-3 x
per week to assess and teach medical management.
Emailed her caregiver agencies that provide overnight private CGs per her request to [email or web address]. She is aware that [facility] will contact them for start of care in 1-2 days after discharge from . [facility] referral completed in [facility] Port.
--- NOTE | 2024-10-22 11:48 | CM ---
power manager reviewed patient's chart and the activities of last evening reviewed, patient was extremely agitated, needed restraints, 1:1 to continue, caseworker protective services spoke with patient's spouse yesterday and she was hoping that patient could return
to home with visiting nurses, visiting nurse options were reviewed and patient's spouse has selected [facility], [facility] liaison notified.
Plan; Await PT/OT evaluations and recommendations.
--- NOTE | 2024-10-22 17:42 | W.PN.UPDATE ---
Update Note
Progress Note Update
Pt seen at bedside, sleeping in chair - reviewed chart, overall has been calmer and able to be out of bed in chair consistently. Remains disoriented and confused, still noted to become intermittently agitated though this appears to be happening less
frequently and pt has been redirectable without the use of prn risperidone in past 24hrs.
Continue risperidone 0.5mg BID + 0.5mg TIDPRN acute agitation.
- has not been receiving prn risperidone, if agitation worsens and pt needing prn doses again may need to reassess standing dosage
[2024-10-22] MEDS: FLOMAX 0.4 MG PO (21:32)
[2024-10-22] MEDS: PRAVACHOL 80 MG PO (21:32)
[2024-10-23] VITALS (8 sets, daily range): BP systolic 120–144; BP diastolic 68–83; PULSE 2; BMI 34.9
[2024-10-23] MEDS: RISPERDAL M-TAB (ORALLY DISINTEGRATING) 0.5 MG PO ×2 (06:21→18:14)
[2024-10-23] MEDS: DUONEB 3 ML INH ×4 (07:15→19:26)
[2024-10-23 09:22] LABS: Hemoglobin 12.2 g/dL (13.0-18.0); Mean Corpuscular Hgb 32.7 pg (27.0-31.0); Mean Corpuscular Volume 99.2 fL (80.0-94.0); Mean Platelet Volume 10.9 fL (7.4-10.4); Platelet Count 116 10^3/uL (130-400); Red Blood Cell Count 3.73 10^6/uL (4.70-6.10); Red Cell Dist. Width 12.8 % (11.5-14.5); White Blood Cell Count 5.4 10^3/uL (4.8-10.8)
[2024-10-23 10:10] LABS: Blood Urea Nitrogen 26 mg/dl (9-20); Chloride 91 mmol/L (98-107); Estimated Creatinine Clearance 69 ml/min; Glucose 136 mg/dl (70-99); Potassium 3.5 mmol/L (3.5-5.1); Sodium 136 mmol/L (135-145); eGFR > 60.00
[2024-10-23] MEDS: PROSCAR 5 MG PO (10:28)
[2024-10-23] MEDS: ZYLOPRIM 100 MG PO (10:28)
[2024-10-23] MEDS: THERAGRAN 1 TABLET PO (10:28)
[2024-10-23 10:29] LABS: Carbon Dioxide 37 mmol/L (22-30)
[2024-10-23] MEDS: VITAMIN D3 (cholecalciferol) 50 MCG PO (10:29)
[2024-10-23] MEDS: LASIX 40 MG PO (10:29)
[2024-10-23] MEDS: COREG 25 MG PO ×2 (10:29→21:39)
[2024-10-23] MEDS: FOLVITE 1 MG PO (10:29)
[2024-10-23] MEDS: THIAMINE INJECTION 200 MG IV ×2 (10:30→18:10)
[2024-10-23] MEDS: ELIQUIS 5 MG PO ×2 (10:30→21:40)
[2024-10-23] MEDS: FLUSH (NSS) 1 FLUSH IV (10:31)
[2024-10-23] MEDS: ALDACTONE 25 MG PO (10:33)
[2024-10-23] MEDS: CARDIZEM CD 120 MG PO (10:33)
--- NOTE | 2024-10-23 12:54 | W.PN.HOSP.TC ---
Today's Communication/Plan
-
Continue nightly BiPAP
Trend AM VBG
C/w Resperidal
1:1 and IM PRNs
Assessment / Plan
Assessment / Plan
#Acute hypoxemic and hypercapnic respiratory failure
#COPD exacerbation
#Influenza pneumonia
-Presentation secondary to COPD exacerbation in the context of flu positive status
-Was initiated on nightly BiPAP here for CO2 retention and improvement of ventilation
-Status post course of steroid for COPD flare, remains on as needed bronchodilators
-Completed course of Tamiflu, does not appear to have any residual viral symptoms
-Continue with nightly BiPAP 15/5 mmHg, will need case management to help with OP BiPAP
-Plan to repeat VBG on morning of 10/24
-SpO2 goal 88 to 94%
#Acute metabolic encephalopathy
-Likely multifactorial with hypercapnia, flu infection; cannot rule out underlying cognitive deficit versus Warnicke/Korsakoff
-Was started on Risperdal standing and as needed, one-to-one observation and mechanical restraints when needed
-MRI on 10/21, other neurological workup negative
-As of this morning he appears calm and oriented
-Continue with high-dose thiamine and folate
#Chronic HFpEF
-Most recent echocardiogram with LVEF 50 to 55%
-Home medications include Lasix, Aldactone, carvedilol
-Remains on fluid restriction, appears euvolemic today
-Monitor BMP, I's/O's, weights
#Paroxysmal AF
-Home regimen includes max dose carvedilol, and Eliquis
-Was initiated on diltiazem here for dual AVN blockade
-As of this morning heart rate WNL, appears NSR
-Has been in and out of sinus rhythm here
#BPH
-Home regimen includes Flomax and Proscar
-No signs of urinary obstruction
#HLD - cont pravastatin
#GOUT - cont allopurinol
#H/O EtOH abuse - cont thiamine folic and MVI
DVT prophylaxis: Home Eliquis
CODE STATUS: DNR
Disposition: Pending SNF versus home with VN
Anticipated Discharge: 24 - 48 hours
Subjective/Interval History
-
Date of Service: October 23, 2024
Seen and examined while seated in the chair. No acute events reported. AFVSS on room air
Remains on one-to-one observation. Labs stable
He denies any new complaints. ROS limited by encephalopathy
Objective Data
-
Labs:
Laboratory Results
10/23/24
08:55
WBC 5.4
Hgb 12.2 L
Hct 37.0 L
Plt Count 116 L D
Sodium 136
Potassium 3.5
Chloride 91 L
Carbon Dioxide 37 H
BUN 26 H
Creatinine 1.0
Glucose 136 H
Calcium 9.0
Vital Signs:
Vital Signs
Temp Pulse Resp BP Pulse Ox
98.0 F 72 18 132/78 94
10/23/24 11:10 10/23/24 11:43 10/23/24 11:43 10/23/24 11:10 10/23/24 11:43
I&O
10/22/24 10/23/24 10/24/24
06:59 06:59 06:59
Intake Total 1440 / 1440 1560 / 1560 1140 / 1140
Output Total 1750 / 1750 450 / 450
Balance 1440 / 1440 -190 / -190 690 / 690
Review of Systems
-
History Source: Patient
All other systems: Reviewed and negative
Physical Exam
-
General: Well Developed, No Apparent Distress and Obese
HEENT: Normocephalic, Atraumatic and Moist Mucous Membranes
Respiratory: Non Labored Respirations and Decreased Breath Sounds; Negative Wheezes, Rales or Rhonchi
Cardiac: Regular Rhythm and S1/S2; Negative Murmur, Rub or Gallop
GI: Soft, Nontender, Nondistended and Normal Bowel Sounds
Musculoskeletal: No Clubbing, No Cyanosis and No Edema
Skin: Warm, Dry and Normal Turgor; Negative Rash
Neuro: AO x 3 and Nonfocal/Grossly Intact
Psych: Calm
Data Reviewed
-
Labs: Labs Reviewed by me and Discussed with Patient
--- NOTE | 2024-10-23 15:42 | CM ---
PT recommended SNF when stable for discharge
CM will discuss site options with and obtain preferences for referral
--- NOTE | 2024-10-23 16:10 | CM ---
PT recommended SNF when patient is stable for discharge
CM was unable to speak with via phone; daughter/caregiver, Vanessa, answered the phone.
SNF recommendation was explained to daughter; she reported that SNF preference is [facility]; referral submitted via [facility]
CM requested additional SNF preferences. Daughter will address with her mother and call back tomorrow. CM's contact information provided
[2024-10-23] MEDS: FLUSH (NSS) 2 FLUSH IV (18:11)
[2024-10-23] MEDS: FLOMAX 0.4 MG PO (21:39)
[2024-10-23] MEDS: PRAVACHOL 80 MG PO (21:41)
[2024-10-24] VITALS (7 sets, daily range): BP systolic 107–136; BP diastolic 59–73; PULSE 2; BMI 34.2
[2024-10-24] MEDS: RISPERDAL M-TAB (ORALLY DISINTEGRATING) 0.5 MG PO ×2 (06:01→18:44)
[2024-10-24 06:39] LABS: Venous Blood Gas B.E. 10.7 mmol/L (-4 to +4); Venous Blood Gas HCO3 36.7 mmol/L (22-27); Venous Blood Gas O2 Sat % 99.9 %; Venous Blood Gas pCO2 54 mmHg (35-48); Venous Blood Gas pH 7.44 (7.32-7.43); Venous Blood Gas pO2 130 mmHg (30-50)
[2024-10-24 06:42] LABS: Venous Blood Gas O2 Therapy RA When BiPAP remove
[2024-10-24 06:50] LABS: % Basophils 0.2 % (0-2); % Eosinophils 2.2 % (0-6); % Immature Granulocytes 1.2 % (0-0.5); % Lymphocytes 16.7 % (20.5-51.1); % Monocytes 11.2 % (1.7-9.3); % Neutrophils 68.5 % (42.2-75.2); Absolute Eosinophils 0.1 10^3/uL (0-0.7); Absolute Immature Granulocytes 0.1 10^3/uL (0-0.05); Absolute Lymphocytes 0.9 10^3/uL (1.2-3.4); Absolute Monocytes 0.6 10^3/uL (0.1-0.6); Absolute Neutrophils 3.5 10^3/uL (1.4-6.5); Hematocrit 35.3 % (39.0-52.0); Mean Platelet Volume 11.2 fL (7.4-10.4); Nucleated Red Blood Cells % 0 % (-); Platelet Count 107 10^3/uL (130-400); Red Blood Cell Count 3.64 10^6/uL (4.70-6.10); Red Cell Dist. Width 12.7 % (11.5-14.5); White Blood Cell Count 5.1 10^3/uL (4.8-10.8)
[2024-10-24 07:13] LABS: Blood Urea Nitrogen 24 mg/dl (9-20); Calcium 8.8 mg/dl (8.4-10.2); Carbon Dioxide 35 mmol/L (22-30); Chloride 95 mmol/L (98-107); Estimated Creatinine Clearance 69 ml/min; Glucose 141 mg/dl (70-99); Potassium 3.7 mmol/L (3.5-5.1); Sodium 137 mmol/L (135-145); eGFR > 60.00
[2024-10-24] MEDS: FOLVITE 1 MG PO (07:41)
[2024-10-24] MEDS: COREG 25 MG PO ×2 (07:41→20:40)
[2024-10-24] MEDS: THERAGRAN 1 TABLET PO (07:42)
[2024-10-24] MEDS: ELIQUIS 5 MG PO ×2 (07:42→20:39)
[2024-10-24] MEDS: LASIX 40 MG PO (07:42)
[2024-10-24] MEDS: PROSCAR 5 MG PO (07:43)
[2024-10-24] MEDS: VITAMIN D3 (cholecalciferol) 50 MCG PO (07:43)
[2024-10-24] MEDS: ZYLOPRIM 100 MG PO (07:43)
[2024-10-24] MEDS: DUONEB 3 ML INH ×4 (07:44→17:59)
[2024-10-24] MEDS: ALDACTONE 25 MG PO (07:46)
[2024-10-24] MEDS: VITAMIN B1 100 MG PO (07:46)
[2024-10-24] MEDS: CARDIZEM CD 120 MG PO (07:46)
--- NOTE | 2024-10-24 08:53 | CM ---
Addendum entered by Nanette Gaona 10/24/24 14:58:
CM contacted Kaya @ [facility]; she reported that they do not support weekend BiPAP set up
Face sheet and clinicals faxed to #[phone]
SNF referrals cancelled via [facility];
[facility] notified of Home Health referral via [facility]Port
CM will follow up tomorrow
Addendum entered by Nanette Gaona 10/24/24 14:23:
does not want patient to go to SNF; wants home with home health; patient needs BiPAP
Original Note:
called and identified additional SNF site preferences; referrals sent via [facility] to [facility] and [facility] is her 1st preference
Plan: discharge to SNF when medically stable; pending bed availability and Auth approval
--- NOTE | 2024-10-24 11:31 | W.PN.HOSP.TC ---
Addendum entered and electronically signed by Micheal Paul DO 10/24/24 14:27:
Patient requires nightly BiPAP 15/5 mmHg for chronic hypercapnia related to COPD and likely underlying ROCIO.
Original Note:
Today's Communication/Plan
-
Continue nightly BiPAP
Monitor VBG
Continue Risperdal and B vitamin
SNF planning
Assessment / Plan
Assessment / Plan
#Acute hypoxemic and hypercapnic respiratory failure
#COPD exacerbation
#Influenza pneumonia
-Presentation secondary to COPD exacerbation in the context of flu positive status
-Was initiated on nightly BiPAP here for CO2 retention and improvement of ventilation
-Status post course of steroid for COPD flare, remains on as needed bronchodilators
-Completed course of Tamiflu, does not appear to have any residual viral symptoms
-Continue with nightly BiPAP 15/5 mmHg, will need case management to help with OP BiPAP
-Plan to repeat VBG on morning of 10/25
-SpO2 goal 88 to 94%
#Acute metabolic encephalopathy
-Likely multifactorial with hypercapnia, flu infection; cannot rule out underlying cognitive deficit versus Warnicke/Korsakoff
-Was started on Risperdal standing and as needed, one-to-one observation and mechanical restraints when needed
-MRI on 10/21, other neurological workup negative
-As of this morning he appears calm and oriented
-Continue with high-dose thiamine and folate
#Chronic HFpEF
-Most recent echocardiogram with LVEF 50 to 55%
-Home medications include Lasix, Aldactone, carvedilol
-Remains on fluid restriction, appears euvolemic today
-Monitor BMP, I's/O's, weights
#Paroxysmal AF
-Home regimen includes max dose carvedilol, and Eliquis
-Was initiated on diltiazem here for dual AVN blockade
-As of this morning heart rate WNL, appears NSR
-Has been in and out of sinus rhythm here
#BPH
-Home regimen includes Flomax and Proscar
-No signs of urinary obstruction
#HLD - cont pravastatin
#GOUT - cont allopurinol
#H/O EtOH abuse - cont thiamine folic and MVI
DVT prophylaxis: Home Eliquis
Diet: Regular
CODE STATUS: DNR
Disposition: SNF, possibly on 10/21
Anticipated Discharge: 24 - 48 hours
Subjective/Interval History
-
Date of Service: October 24, 2024
Seen and examined at the bedside. No acute events reported overnight. AFVSS on room air
VBG this morning with CO2 in the low 50s, improved from previous VBG. Encephalopathy seems improved though still present
He denies any new complaints today. States his preference would be to go home
Objective Data
-
Labs:
Laboratory Results
10/24/24
06:22
WBC 5.1
Hgb 12.0 L
Hct 35.3 L
Plt Count 107 L
Sodium 137
Potassium 3.7
Chloride 95 L
Carbon Dioxide 35 H
BUN 24 H
Creatinine 1.0
Glucose 141 H
Calcium 8.8
Vital Signs:
Vital Signs
Temp Pulse Resp BP Pulse Ox
98.2 F 80 14 133/66 94
10/24/24 07:03 10/24/24 11:25 10/24/24 11:25 10/24/24 07:03 10/24/24 07:50
I&O
10/23/24 10/24/24 10/25/24
06:59 06:59 06:59
Intake Total 1560 / 1560 1979 / 1979 720 / 720
Output Total 1750 / 1750 850 / 850 870 / 870
Balance -190 / -190 1130 / 1130 -150 / -150
Review of Systems
-
History Source: Patient
All other systems: Reviewed and negative
Physical Exam
-
General: Well Developed, No Apparent Distress and Obese
HEENT: Normocephalic, Atraumatic and Moist Mucous Membranes
Respiratory: Clear to Auscultation and Non Labored Respirations; Negative Wheezes
Cardiac: Regular Rhythm and S1/S2; Negative Murmur, Rub or Gallop
GI: Soft, Nontender, Nondistended and Normal Bowel Sounds
Musculoskeletal: No Clubbing, No Cyanosis and No Edema
Skin: Warm, Dry and Normal Turgor; Negative Rash
Neuro: AO x 3 and Nonfocal/Grossly Intact
Psych: Confused
Data Reviewed
-
Labs: Labs Reviewed by me and Discussed with Patient
--- NOTE | 2024-10-24 15:03 | W.PN.UPDATE ---
Update Note
Progress Note Update
Pt seen at bedside, sleeping comfortably in chair. present - she reported that he remains much better, has continued to improve every day. Can still get confused or forget something he previously would have remembered, but this is happening
less and he has not been agitated or in need of PRN medication. It seems that plan was for SNF but pt may be going home instead - reports that they have family support and are hoping to have VNs come to the home as she worries of his worsening
again if he goes back to SNF/rehab.
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
[2024-10-24] MEDS: FLOMAX 0.4 MG PO (20:39)
[2024-10-24] MEDS: PRAVACHOL 80 MG PO (20:43)
[2024-10-25 02:08] VITALS: PULSE 2
[2024-10-25 03:52] VITALS: BP 148/79
[2024-10-25] MEDS: RISPERDAL M-TAB (ORALLY DISINTEGRATING) 0.5 MG PO (05:09)
[2024-10-25 06:00] VITALS: BMI 34.2
[2024-10-25] MEDS: DUONEB 3 ML INH ×2 (07:21→11:49)
[2024-10-25 07:42] VITALS: BP 119/60
[2024-10-25 07:45] LABS: Venous Blood Gas B.E. 10.8 mmol/L (-4 to +4); Venous Blood Gas HCO3 36.3 mmol/L (22-27); Venous Blood Gas O2 Sat % 99.7 %; Venous Blood Gas pCO2 51 mmHg (35-48); Venous Blood Gas pH 7.46 (7.32-7.43); Venous Blood Gas pO2 142 mmHg (30-50)
[2024-10-25 08:21] LABS: Hematocrit 37.1 % (39.0-52.0); Hemoglobin 11.8 g/dL (13.0-18.0); Mean Corp Hgb Conc. 31.8 g/dL (33.0-37.0); Mean Corpuscular Hgb 32.2 pg (27.0-31.0); Mean Corpuscular Volume 101.1 fL (80.0-94.0); Mean Platelet Volume 11.2 fL (7.4-10.4); Platelet Count 116 10^3/uL (130-400); Red Blood Cell Count 3.67 10^6/uL (4.70-6.10); White Blood Cell Count 7.5 10^3/uL (4.8-10.8)
[2024-10-25 08:42] LABS: Blood Urea Nitrogen 19 mg/dl (9-20); Calcium 9.4 mg/dl (8.4-10.2); Carbon Dioxide 35 mmol/L (22-30); Chloride 95 mmol/L (98-107); Estimated Creatinine Clearance 68 ml/min; Glucose 109 mg/dl (70-99); Potassium 3.6 mmol/L (3.5-5.1); Sodium 136 mmol/L (135-145); eGFR > 60.00
[2024-10-25] MEDS: THERAGRAN 1 TABLET PO (08:52)
[2024-10-25] MEDS: LASIX 40 MG PO (08:52)
[2024-10-25] MEDS: ELIQUIS 5 MG PO (08:52)
[2024-10-25] MEDS: FOLVITE 1 MG PO (08:52)
[2024-10-25] MEDS: COREG 25 MG PO (08:53)
[2024-10-25] MEDS: PROSCAR 5 MG PO (08:53)
[2024-10-25] MEDS: VITAMIN D3 (cholecalciferol) 50 MCG PO (08:53)
[2024-10-25] MEDS: ZYLOPRIM 100 MG PO (08:53)
[2024-10-25] MEDS: VITAMIN B1 100 MG PO (08:53)
[2024-10-25] MEDS: ALDACTONE 25 MG PO (08:53)
[2024-10-25] MEDS: CARDIZEM CD 120 MG PO (08:53)
--- NOTE | 2024-10-25 10:08 | CM ---
Chart reviewed and patient and family said they made their final decision on Friday and that they are going to take patient home at discharge, they have agreed to [facility] and pulmonary are recommending BIPAP, [employer] equipment company have been
contacted and all paperwork needs to be complemented and then faxed to patient's insurance for approval.
Plan; Home with [facility] and BIPAP from [employer].
[2024-10-25 11:37] VITALS: BP 147/77
--- NOTE | 2024-10-25 12:33 | W.PN.HOSP.TC ---
Today's Communication/Plan
-
Patient is stable for discharge to home with VN today (does not need to stay for BiPAP to be delivered per pulmonology)
Recommend outpatient follow-up with pulmonology
Updated patient's
Assessment / Plan
Assessment / Plan
Patient is an 84y M with PMH significant for A-Fib, HFpEF and COPD who presents to ED for evaluation of mental status change and cough and SOB.
#Acute hypoxemic and hypercapnic respiratory failure
#COPD exacerbation
#Influenza pneumonia
-Presentation secondary to COPD exacerbation in the context of flu positive status
-Was initiated on nightly BiPAP for CO2 retention and improvement of ventilation
-Status post course of steroid for COPD flare, remains on as needed bronchodilators
-Completed course of Tamiflu, does not appear to have any residual viral symptoms
-Continue with nightly BiPAP 15/5 mmHg-Case management has been working on setting up home BiPAP-will be delivered tomorrow
-VBG this morning stable with some improvement
-Currently off oxygen-maintain SpO2 88 to 94%
-Appreciate pulmonology- patient is cleared for discharge today and does not need to stay overnight for BiPAP to be delivered
#Acute mental status change present on admission
-Likely multifactorial with hypercapnia, flu infection; cannot rule out underlying cognitive deficit versus Warnicke/Korsakoff
-Was started on Risperdal standing and as needed as well as high-dose thiamine and folate
-Currently calm, oriented and at baseline mentation
-Required one-to-one observation and mechanical restraints last week, has been off one-to-one and restraints during the weekend and today
-MRI on 10/21 was negative for any acute pathology-evidence of chronic small vessel disease
-EEG: In favor of mild generalized cerebral dysfunction
#Chronic HFpEF
-Most recent echocardiogram with LVEF 50 to 55%
-Home medications include Lasix, Aldactone, carvedilol
-Remains on fluid restriction, appears euvolemic today
-Continue to monitor BMP, I's/O's, weights
#Paroxysmal AFib
-Remains rate controlled on max dose carvedilol and diltiazem 120
-As of this morning heart rate WNL, appears NSR
-Continue Eliquis
#BPH
-Continue home Flomax and Proscar
-Output adequate-no signs of urinary obstruction at this time
#HLD - cont pravastatin
#GOUT - cont allopurinol
#H/O EtOH abuse - cont thiamine folic and MVI
DVT prophylaxis:
Eliquis
Diet: Regular
CODE STATUS: DNR
Disposition: Home with [facility]
Spoke to patient's , Jyoti. She would like patient to go home with . Also, wants to take patient home today and is willing to closely monitor him tonight until BiPAP is delivered tomorrow.
New medications were re-sent to [facility] ([place]) per 's request.
Anticipated Discharge: Today
Subjective/Interval History
-
Date of Service: October 25, 2024
Patient mentions he would really like to go home today. Denies any shortness of breath or chest pain.
Objective Data
-
Labs:
Laboratory Results
10/25/24
07:46
WBC 7.5
Hgb 11.8 L
Hct 37.1 L
Plt Count 116 L
Sodium 136
Potassium 3.6
Chloride 95 L
Carbon Dioxide 35 H
BUN 19
Creatinine 1.0
Glucose 109 H
Calcium 9.4
Vital Signs:
Vital Signs
Temp Pulse Resp BP Pulse Ox
97.8 F 86 16 147/77 91
10/25/24 11:37 10/25/24 11:52 10/25/24 11:52 10/25/24 11:37 10/25/24 11:52
I&O
10/24/24 10/25/24 10/26/24
06:59 06:59 06:59
Intake Total 1979 / 1979 1680 / 1680
Output Total 850 / 850 1670 / 167
Balance 1130 / 1130
Review of Systems
-
History Source: Patient
All other systems: Reviewed and negative
Physical Exam
-
General: Well Developed, No Apparent Distress and Obese
HEENT: Normocephalic, Atraumatic and Moist Mucous Membranes
Respiratory: Clear to Auscultation and Non Labored Respirations; Negative Wheezes
Cardiac: Regular Rhythm and S1/S2; Negative Murmur, Rub or Gallop
GI: Soft, Nontender, Nondistended and Normal Bowel Sounds
Musculoskeletal: No Clubbing, No Cyanosis and No Edema
Skin: Warm, Dry, Rash (Circular rash around neck due to BiPAP irritation (is applying topical zinc oxide on rash)) and Normal Turgor
Neuro: Awake, Alert, Oriented and Nonfocal/Grossly Intact
Psych: Calm and Intact Judgement/Insight
[2024-10-25 14:54] VITALS: BP 118/64
--- NOTE | 2024-10-25 15:22 | EEG.RPT ---
Electroencephalogram Report
Recording
Date of EE10/25/24
Length of EEG recordin minutes
Done with Video Recording: Yes
Patient Status: Inpatient
Recording Conditions: Awake and Drowsy
Hyperventilation Performed: No
Photic Stimulation Performed: Yes
Report
History: he is an 84 year old man with encephalopathy
Background: continuous generalized slowing, polymorphic theta activity, 6-7 hz, with admixed low amplitude beta activity. it is symmetric and reactive.
Sleep: none
Focal/rhythmic/epileptiform: none
Seizures: none
Photic stim: no background change
Impression: continuous generalized slowing
Clinical correlation: mild generalized cerebral dysfunction.
[2024-10-25] MEDS: DUONEB INH (15:23)
--- NOTE | 2024-10-25 16:18 | W.PN.UPDATE ---
Addendum entered and electronically signed by Oseas Werner MD 10/25/24 18:24:
I saw and evaluated the patient. I reviewed the resident�s note and agree with findings and plan as documented in the resident�s note except for changes in my documentation
Original Note:
Update Note
Progress Note Update
84-year-old male with mental status change
I saw and evaluated the patient. I reviewed the resident�s note and agree with findings and plan as documented in the resident�s note except for changes in my documentation
Head CT 10/16/2024-no acute changes. Mild diffuse cortical atrophy with nonspecific white matter changes
Patient is awake alert and oriented.
He states that he knows what to do now in terms of fluid intake and also regarding wearing BiPAP. He states that he does not want to come back to the hospital.
# Acute hypoxic and hypercarbic respiratory failure
Patient was started on BiPAP
Repeat chest [id number] airspace disease-Pneumonia
COPD exacerbation-Status post course of steroid for COPD flare, remains on as needed bronchodilators
Influenza A-Completed Tamiflu
Continue with nightly BiPAP 15/5 mmHg, will need case management to help with OP BiPAP
# TME-present on admission and also stroke alert called 10-15-24 evening
Delirium Seems to have resolved
TME likely secondary to influenza and also CO2 retention
MRI on 10/21, other neurological workup negative
Discussed with neurology. EEG without any seizure activity.
Continue with high-dose thiamine and folate
Risperidone started 0.5 twice daily and 0.5, 3 times daily as needed-should be discontinue after few weeks.
# Pancytopenia-likely viral. Platelets still low. Repeat as outpatient
# Hyperkalemia-resolved. Aldactone resumed
# UTI ruled out. Cultures are negative
# Paroxysmal atrial fibrillation-continue Eliquis and Coreg. Cardizem started this admission.
# Chronic HFrEF-Continue Coreg and Lasix, Aldactone
Echo -EF 50 to 55%, dilated RV, normal RV function, pacer/ICD wire in RV, severely dilated LA, severely dilated RA, mild to moderate eccentric MR, mild , mild to moderate TR
# History of ICD placement
# History of Sleep Apnea-Does not use CPAP at home ( He does not like it). Now willing to use BiPAP at home.
# Hyperlipidemia-Continue statin
# Enlarged prostate-Continue Finasteride, Flomax
# Short-term memory loss per
# Obesity per BMI criteria
# Gout-Continue allopurinol
# Ex-Smoker
# DVT Prophylaxis
# Full Code
Discussed with case management-BiPAP can only be set up tomorrow. Patient states that she will take a chance of taking him home today he cannot stay here another night. Discussed with pulmonary. Okay for discharge. BiPAP will be set up
tomorrow morning around 8:10 AM
Discussed with nursing
Discussed with at bedside in detail
Total discharge coordination time more than 40 minutes
--- NOTE | 2024-10-25 19:11 | W.DCSUMMARY ---
Discharge Summary
Discharge Data
Date of Admission: 10/14/24
Date of Discharge: 10/25/24
-
Pending Results: No
Hospital Course
Patient is an 84y M with PMH of paroxysmal A-Fib on Eliquis, HFpEF and COPD who presented to ED for evaluation of acute mental status change as well as cough and SOB. He was septic on admission and tested positive for influenza A on admission.
Patient was admitted for further evaluation and treatment of acute TME and sepsis.
Problem list:
1. Sepsis secondary to influenza A
Patient was started on Tamiflu 75 twice daily and completed course during stay. He received supportive care with supplemental oxygen, Decadron and IV fluids. Doxycycline was discontinued after single dose. Patient remained stable off antibiotics.
He was was able to be weaned off oxygen and sepsis resolved.
2. Acute mental status change
This was likely multifactorial with hypercapnia, influenza A infection, and possibly underlying cognitive deficit contributing to his confusion. Patient remained agitated after resolution of sepsis.
Psychiatry was consulted who started standing Risperdal in addition to as needed doses. He was also started on high-dose thiamine and folate with suspicion of possible Wernicke/Korsakoff syndrome due to prior alcohol use disorder. Brain MRI, head
CT x 2 and EEG were normal. Patient occasionally required restraints and one-on-one during stay, especially during the evening. Decadron was discontinued after 3 days and Risperdal was adjusted to be given at an earlier time which seemed to help
control patient's agitation in the evening. Pulmonology consulted who recommended nightly BiPAP to help with chronic hypercarbia and reduce agitation. Patient was eventually able to come off restraints and one-on-one. He has been able to stay calm
during the past 2 days and as returned to baseline mentation.
3. Chronic HFpEF
Patient was maintained on home medications including Lasix 40, Aldactone, max dose carvedilol. He remained euvolemic during stay.
4. Paroxysmal A-fib
Patient was in and out of A-fib during stay. He was initially started on Cardizem drip and eventually switched to oral diltiazem 120. Heart rate remained controlled on max dose carvedilol and diltiazem 120. Eliquis was continued during stay.
5. COPD exacerbation
Pulmonary was consulted. They recommended continuation of DuoNeb QID and nightly BiPAP with setting of 15/5 (to be continued after discharge). Also, recommended outpatient follow-up with Dr. Bolton in 2 weeks.
6. Rest of chronic conditions were managed as before.
PT OT visited with patient who recommended SNF. However, patient's preferred home with VN. Case management was consulted and VN was set up. Also, BiPAP typically delivered to patient's home.
New changes in medications include Cardizem 120, folic acid 1 mg, thiamine 100 mg, DuoNeb 3 puffs 4 times daily, Risperdal 0.5 daily.
Patient is recommended to follow-up with primary care doctor in 1 week. Also, patient should follow-up with pulmonary office in 2 to 3 weeks.
Discharge Plan
-
Patient Disposition: Home (Routine Discharge)
Discharge Diagnosis/Procedures: Acute hypoxemic and hypercapnic respiratory failure
COPD exacerbation
Influenza A
Altered mental status
Atrial fibrillation with rapid ventricular response
Chronic heart failure
Sleep apnea
BPH
High cholesterol
Gout
Condition: Fair
Diet: 2 Gram Sodium and Restrict fluids to 64 oz
Activity: As tolerated
Additional Activity: Use nightly BiPAP 15/5 mmHg to prevent CO2 accumulation in your lungs
Driving Restrictions: Not until seen by your Dr
Bathing Restrictions: None
Blood Work: None
Others Tests: None
Other Services: VN
Specialty Instructions: Weigh Daily- Call MD for wt gain/loss 3 lbs overnight/5 lbs in 1 week
Activity Restrictions/Additional Instructions:
After discharge from the hospital schedule follow-up appointment with your family physician. Should be seen in office within 1 to 2 weeks of your discharge
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
Follow-up with your primary physician to be off of risperidone in the next few weeks.
Instructions: COPD exacerbation - Discharge instructions, COPD exacerbation
Referrals:
Meng Bolton MD [Active] - in two to three weeks (Influenza, pneumonia, COPD, ROCIO)
UNKNOWN - PT NOT,INTERVIEWE [Family Provider] -
Additional Discharge Medication Instructions: Start Diltiazem 120 mg daily
Start Folic acid 1 mg daily
Start Thiamine 100 mg daily
Start Risperidone 0.5 mg every 12 hours with additional 0.5 mg up to 3 times daily as needed for agitation
Start DuoNebs every 6 hours as needed for shortness of breath or wheezing
Stop taking B12 supplement until seen by your family doctor for follow-up blood work.
Start Nightly BiPAP
Prescriptions:
New
diltiazem HCl 120 mg Capsule,Extended Release 24hr
120 mg PO DAILY 30 Days Qty: 30 0RF
folic acid 1 mg Tablet
1 mg PO DAILY 30 Days Qty: 30 0RF
risperidone 0.5 mg Tablet
0.5 mg PO TIDPRN PRN (Reason: agitation) 30 Days Qty: 60 0RF
risperidone 0.5 mg Tablet,Disintegrating
0.5 mg PO Q12H 30 Days Qty: 60 0RF
thiamine mononitrate (vit B1) 100 mg Tablet
100 mg PO DAILY 30 Days Qty: 30 0RF
ipratropium-albuterol 0.5 mg-3 mg(2.5 mg base)/3 mL Solution For Nebulization
3 ml inhalation R QID 30 Days Qty: 180 0RF
(DME) nebulizer accessories Kit
See Rx Instructions .Route Qty: 1 0RF
Rx Instructions:
As directed
(DME) nebulizers [AeroEclipse XL Nebulizer] Misc
See Rx Instructions .Route Qty: 1 0RF
Rx Instructions:
As directed
Continued
Eliquis 5 MG tablet
5 mg PO BID
pravastatin 40 MG tablet
80 mg PO HS
allopurinol 100 mg tablet
100 mg PO DAILY
Patient Comments:
06/25/22: per patient- dose uncertain; confirmed via pharmacy fill records as 100 mg daily
tamsulosin 0.4 mg capsule
0.4 mg PO HS
finasteride 5 mg tablet
5 mg PO DAILY
carvedilol [Coreg] 25 mg Tablet
25 mg PO BID
furosemide 40 mg Tablet
40 mg PO DAILY
spironolactone 25 mg Tablet
25 mg PO DAILY
cholecalciferol (vitamin D3) 50 mcg (2,000 unit) Tablet
50 mcg PO DAILY
Discontinued
cyanocobalamin (vitamin B-12) 1,000 mcg Tablet
1,000 mcg PO DAILY
Discharge Orders:
Discharge Patient (As Directed); Ordered 10/25/24
Ordered By: Adam Hogue
Discharge Date and Time
Discharge Date/Time: 10/25/24 15:27
Print Language: MOHAWK
== END 2024-10-25 15:27 | disposition home health service (06) | DRG 871 ==
LOC: 4 WEST ACU 01:09
PROVIDERS: Family Medicine; Internal Medicine; Internal Medicine Critical Care Medicine; Nurse Practitioner Family; Physician Assistant; ADMITTING PHYSICIAN Hospitalist; ATTENDING PHYSICIAN Hospitalist; CONSULT PHYSICIAN Internal Medicine Critical Care Medicine; CONSULT PHYSICIAN Psychiatry & Neurology Clinical Neurophysiology; CONSULT PHYSICIAN Psychiatry & Neurology Psychiatry; EMERGENCY PHYSICIAN Emergency Medicine
PROC: 5A09357 Assistance with Respiratory Ventilation, Less than 24 Consecutive Hours, Continuous Positive Airway Pressure (ICD-10-PCS; 2024-10-15)
DX: A41.89 Other specified sepsis (principal); G92.8 Other toxic encephalopathy; J96.01 Acute respiratory failure with hypoxia; J96.02 Acute respiratory failure with hypercapnia; J10.01 Influenza due to other identified influenza virus with the same other identified influenza virus pneumonia; Z66 Do not resuscitate; I50.32 Chronic diastolic (congestive) heart failure; J44.1 Chronic obstructive pulmonary disease with (acute) exacerbation; D61.818 Other pancytopenia; I42.8 Other cardiomyopathies; F02.A11 Dementia in other diseases classified elsewhere, mild, with agitation; I11.0 Hypertensive heart disease with heart failure; I48.0 Paroxysmal atrial fibrillation; E66.9 Obesity, unspecified; E78.00 Pure hypercholesterolemia, unspecified; N40.0 Benign prostatic hyperplasia without lower urinary tract symptoms; M10.9 Gout, unspecified; K59.09 Other constipation; G47.33 Obstructive sleep apnea (adult) (pediatric); G31.83 Neurocognitive disorder with Lewy bodies; R44.1 Visual hallucinations; E87.5 Hyperkalemia; Z20.822 Contact with and (suspected) exposure to COVID-19; Z68.37 Body mass index [BMI] 37.0-37.9, adult; Z78.1 Physical restraint status; Z98.1 Arthrodesis status; Z87.891 Personal history of nicotine dependence; Z79.899 Other long term (current) drug therapy; Z88.5 Allergy status to narcotic agent; Z79.01 Long term (current) use of anticoagulants
CPT/HCPCS: 36600; 70450; 70553; 71045; 71046; 80048; 80053; 81003; 81015; 82607; 82746; 82805; 82962; 83605; 83735; 83880; 84145; 85025; 85027; 85610; 87040; 87086; 87502; 87811; 92526; 92610; 93005; 94640; 94660; 95816; 96374; 97162; 97164; 97167; 97168; 97530; 97535; 99285; A9575; J2358